=== PATIENT | female | born 1935 | race Caucasian/White ===

== ENCOUNTER 2016-12-03 13:34 | Outpatient (CLI) | payer MEDICARE, BC | END 2016-12-03 13:35 | disposition home or self-care (01) | DX: R73.9 Hyperglycemia, unspecified (principal); E03.9 Hypothyroidism, unspecified; E55.9 Vitamin D deficiency, unspecified; Z79.899 Other long term (current) drug therapy ==

== ENCOUNTER 2016-12-17 21:20 | Emergency (ER) | payer MEDICARE, BC ==
--- NOTE | 2016-12-17 21:53 | ED Physician Documentation ---
History of Present Illness - Stated complaint Stated Complaint: LEGS SWELLING - Chief complaint Chief Complaint: General - History obtained from History obtained from: Patient, Family - History of Present Illness Timing: How many days ago (4-5) Pain level now: 8 Improved by: no ameliorating factors Worsened by: no exacerbating factors - Additonal information Additional information: c/o gradually worsening BLE swelling and associated pain x 5 days. recently started on lasix 10mg QD by PMD, dose increased to 20mg few days ago without effective change in leg swelling and pain. patient's chief concern tonight is the pain in her legs. 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: Hysterectomy - Present Medications Home Medications: Ambulatory Orders Medication Instructions Recorded Confirmed Allopurinol 300 mg PO DAILY 11/30/14 12/17/16 Levothyroxine [Synthroid] 137 mcg PO DAILY 11/30/14 12/17/16 Metoprolol Succinate [Toprol Xl] 200 mg PO DAILY 11/30/14 12/17/16 Omeprazole 40 mg PO DAILY 11/30/14 12/17/16 Triamterene/Hydrochlorothiazid 2 tab PO DAILY 11/30/14 12/17/16 [Triamterene-Hctz 75-50 mg Tab] Cholecalciferol (Vitamin D3) 2,000 units PO DAILY 12/17/16 12/17/16 [Vitamin D3] Furosemide [Lasix] 10 mg PO DAILY 12/17/16 12/17/16 Potassium Chloride 10 mg PO DAILY 12/17/16 12/17/16 - Allergies Allergies/Adverse Reactions: Allergies Allergy/AdvReac Type Severity Reaction Status Date / Time codeine Allergy Severe Anaphylaxis Verified 12/17/16 21:30 PD ED PE NORMAL - Vitals Vital signs reviewed: Yes - General General: Alert and oriented X 3, Well developed/nourished, Other (appears to be uncomfortable with mild-moderate pain) - Cardiac Cardiac: RRR, No murmur - Respiratory Respiratory: No respiratory distress - Abdomen Abdomen: Soft, Non tender - Derm Derm: Normal color, Warm and dry PD ED PE EXPANDED - Respiratory Respiratory: Wheezing (end-expiratory, bilateral) - Extremities Extremities: Pedal edema bilateral Results - Vitals Vitals: Oxygen O2 Source Room air Oxygen Flow Rate 2 - EKG (time done) No standard instances Rate: Rate (enter#) (78) Rhythm: NSR [place]: Normal Intervals: Normal [place] QRS: Normal Ischemia: Normal ST segments - Labs Labs: Laboratory Tests 12/17/16 12/17/16 12/17/16 22:36 22:50 22:50 WBC 9.1 RBC 4.28 Hgb 13.4 Hct 40.4 MCV 94.5 MCH 31.3 H MCHC 33.1 RDW 14.2 Plt Count 246 MPV 9.1 Neut # 5.4 Lymph # 2.8 [place] # 0.6 Eos # 0.2 Baso # 0.1 Absolute Nucleated RBC 0.00 Nucleated RBCs 0.0 Sodium 143 Potassium 3.4 L Chloride 98 L Carbon Dioxide 36 H Anion Gap 9.0 BUN 23 H Creatinine 1.2 H Estimated GFR (MDRD) 43 L Glucose 132 H Calcium 8.7 Total Bilirubin 0.5 AST 24 ALT 23 Alkaline Phosphatase 72 Troponin I < 0.04 B-Natriuretic Peptide Total Protein 6.9 Albumin 3.9 Globulin 3.0 Albumin/Globulin Ratio 1.3 Lipase 20 L 12/17/16 22:50 WBC RBC Hgb Hct MCV MCH MCHC RDW Plt Count MPV Neut # Lymph # [place] # Eos # Baso # Absolute Nucleated RBC Nucleated RBCs Sodium Potassium Chloride Carbon Dioxide Anion Gap BUN Creatinine Estimated GFR (MDRD) Glucose Calcium Total Bilirubin AST ALT Alkaline Phosphatase Troponin I B-Natriuretic Peptide 48 Total Protein Albumin Globulin Albumin/Globulin Ratio Lipase - Rads (name of study) chest xray Radiology: Prelim report reviewed, See rad report PD MEDICAL DECISION MAKING - ED course Complexity details: reviewed results, re-evaluated patient, considered differential, d/w patient, d/w family ED course: patients test results are all quite reassuring, and patient reported significant relief of pain, essentially resolution, with IV morphine. She did have several episodes of nausea and vomiting subsequent to this medication, with modest relief with intravenous Zofran followed by Phenergan. she was also given a total of 60 mg of Lasix in the ED. She was provided a take-home pack of vacating to be used should the pain reoccur. I discussed with her and her family the benefit of increasing doses of Lasix , Particularly gradual improvement of her edema, versus the risk, particularly worsening kidney function test. I advised her to stay on her currently prescribed Lasix dose until she is instructed otherwise by her primary care physician. Departure - Departure Disposition: 01 Home, Self Care Clinical Impression: Peripheral edema Condition: Good Instructions: ED Edema Legs Bilateral Follow-Up: Nicole Kuo PA-C [Primary Care Provider] - (Call in the morning to arrange for next available appointment) Discharge Date/Time: 12/18/16 03:41
[2016-12-17] MEDS ORDERED: FUROSEMIDE 40 MG/4 ML VIAL IVP STA (22:16)
[2016-12-17] MEDS ORDERED: MORPHINE 2 MG/ML SYRINGE IVP STA (22:16)
[2016-12-17] MEDS ORDERED: FUROSEMIDE 40 MG/4 ML VIAL ONE (22:26)
[2016-12-17] MEDS ORDERED: MORPHINE 2 MG/ML SYRINGE ONE (22:27)
--- NOTE | 2016-12-17 22:44 | XRAY Preliminary Report ---
Exam: XR Chest 2 View PA/LAT IMPRESSION: 1. Small lung volumes with bibasilar atelectasis. 2. Heart size probably upper normal. [facility] SITE ID: [id number]
[2016-12-17 22:45] LABS: BASOPHILS # (AUTO) 0.1 10^3/uL (0.0-0.1); BASOPHILS % (AUTO) 0.7 %; EOSINOPHILS # (AUTO) 0.2 10^3/uL (0.0-0.7); HCT - HEMATOCRIT 40.4 % (37.0-47.0); HGB - HEMOGLOBIN 13.4 g/dL (12.0-16.0); LYMPHOCYTES # (AUTO) 2.8 10^3/uL (1.5-3.5); LYMPHOCYTES % (AUTO) 30.8 %; MEAN CORPUSCULAR HEMOGLOBIN 31.3 pg (27.0-31.0); MEAN CORPUSCULAR HGB CONC 33.1 g/dL (32.0-36.0); MEAN CORPUSCULAR VOLUME 94.5 fL (81.0-99.0); MEAN PLATELET VOLUME 9.1 fL (7.9-10.8); MONOCYTES # (AUTO) 0.6 10^3/uL (0.0-1.0); MONOCYTES % (AUTO) 6.8 %; NEUTROPHILS # (AUTO) 5.4 10^3/uL (1.5-6.6); NEUTROPHILS % (AUTO) 59.7 %; RED BLOOD COUNT 4.28 10^6/uL (4.20-5.40); RED CELL DISTRIBUTION WIDTH 14.2 % (12.0-15.0); UNCORRECTED WHITE BLOOD COUNT 9.1 x10^3/uL; WHITE BLOOD COUNT 9.1 x10^3/uL (4.8-10.8)
--- NOTE | 2016-12-17 22:47 | XRAY Report ---
EXAM: CHEST RADIOGRAPHY EXAM DATE: 12/17/2016 10:30 PM. CLINICAL HISTORY: Dyspnea. COMPARISON: 12/18/2015. TECHNIQUE: 2 views. FINDINGS: Lungs/Pleura: Small lung volumes with bibasilar atelectasis. No pleural effusion seen. No pneumothora x. Mediastinum: Heart size is probably upper normal. Other: None. IMPRESSION: 1. Small lung volumes with bibasilar atelectasis. 2. Heart size probably upper normal. [facility] Referring Provider Line: [phone] SITE ID: [id number]
[2016-12-17 23:14] LABS: ALBUMIN/GLOBULIN RATIO 1.3 (1.0-2.2); BILIRUBIN,TOTAL 0.5 mg/dL (0.2-1.0); CALCIUM 8.7 mg/dL (8.5-10.3); CREATININE 1.2 mg/dL (0.4-1.0); POTASSIUM 3.4 mmol/L (3.5-5.0); TOTAL PROTEIN 6.9 g/dL (6.7-8.2)
[2016-12-17] MEDS ORDERED: ONDANSETRON 4 MG/2 ML VIAL ONE (23:18)
[2016-12-18] MEDS ORDERED: ONDANSETRON 4 MG/2 ML VIAL IVP STA ×2 (00:39)
[2016-12-18] MEDS ORDERED: ONDANSETRON 4 MG/2 ML VIAL ONE (00:40)
[2016-12-18] MEDS ORDERED: FUROSEMIDE 20 MG/2 ML VIAL IVP STA (01:13)
[2016-12-18] MEDS ORDERED: FUROSEMIDE 20 MG/2 ML VIAL IVP ONE (01:13)
[2016-12-18] MEDS ORDERED: PROMETHAZINE INJ 12.5 MG in SODIUM CHLORIDE 0.9% 50 ML IV STA (02:14)
[2016-12-18] MEDS ORDERED: HYDROcod/ACET 5/325 Prepack 6 PO STA (02:15)
[2016-12-18] MEDS ORDERED: PROMETHAZINE 25 MG/1 ML VIAL ONE (02:17)
[2016-12-18] MEDS ORDERED: HYDROcod/ACET 5/325 Prepack 6 PO ONE (02:17)
[2016-12-18 02:57] VITALS: BP 119/55
== END 2016-12-18 03:41 | disposition home or self-care (01) ==
LOC: ED 21:20
DX: R60.0 Localized edema (principal); M79.604 Pain in right leg; M79.605 Pain in left leg; R11.2 Nausea with vomiting, unspecified; J45.909 Unspecified asthma, uncomplicated; I10 Essential (primary) hypertension
CPT/HCPCS: 36415; 71020; 80053; 83690; 83880; 84484; 85025; 93005; 93010; 96374; 96375; 96376; 99284

== ENCOUNTER 2016-12-24 13:44 | Outpatient (CLI) | payer MEDICARE, BC ==
[2016-12-24 18:25] LABS: ALBUMIN/GLOBULIN RATIO 1.3 (1.0-2.2); BILIRUBIN,TOTAL 0.9 mg/dL (0.2-1.0); CALCIUM 9.3 mg/dL (8.5-10.3); CREATININE 1.2 mg/dL (0.4-1.0); POTASSIUM 3.7 mmol/L (3.5-5.0); TOTAL PROTEIN 7.6 g/dL (6.7-8.2)
== END 2016-12-24 13:45 | disposition home or self-care (01) ==
LOC: LAB.F 13:44
PROVIDERS: ATTEND Physician Assistant Medical
DX: R60.9 Edema, unspecified (principal); R06.02 Shortness of breath
CPT/HCPCS: 36415; 80053; 83880

== ENCOUNTER 2016-12-30 12:38 | Outpatient (CLI) | payer MEDICARE, BC ==
[2016-12-30] MEDS ORDERED: IOPAMIDOL-300 50 ML VIAL PO ONE (14:15)
[2016-12-30] MEDS ORDERED: IOPAMIDOL-300 100 ML VIAL IVP ONE (14:15)
--- NOTE | 2016-12-30 18:52 | CT Report ---
CT ABDOMEN AND PELVIS WITH CONTRAST: 12/30/2016 CLINICAL INDICATION: Peripheral edema, question mass obstructing the inferior vena cava or pelvic ve ins. Axial CT images of the abdomen and pelvis were obtained with 60 mL Isovue-300 intravenously as well a s oral contrast. In accordance with CT protocol optimization, one or more of the following dose reduction techniques w ere utilized for this exam: automated exposure control, adjustment of mA and/or KV based on patient size, or use of iterative reconstructive technique. No previous CT is available for comparison. Limited evaluation of the lung bases is unremarkable. ABDOMEN: The liver, spleen, pancreas, and adrenal glands are unremarkable. The gallbladder is not d ilated. The kidneys demonstrate cortical cysts. No nephrolithiasis or hydronephrosis is present. N o solid renal mass is seen. No bowel dilatation, free gas, or free fluid is present. No abdominal a denopathy is appreciated. PELVIS: The appendix is seen in the right lower quadrant, and is normal in caliber. Sigmoid diverti culosis is present, without CT evidence of diverticulitis. No pelvic adenopathy or free fluid is pre sent. Osseous structures demonstrate mild degenerative changes. IMPRESSION: NO EVIDENCE OF ADENOPATHY OR OTHER MASS OBSTRUCTING THE INFERIOR VENA CAVA OR PELVIC VEI NS. NO EVIDENT ETIOLOGY FOR PATIENT'S PERIPHERAL EDEMA. JOB #: [id number] EXT JOB #:[id number]
== END 2016-12-30 12:39 | disposition home or self-care (01) ==
LOC: DI 12:38
PROVIDERS: ATTEND Physician Assistant Medical
DX: R60.9 Edema, unspecified (principal)
CPT/HCPCS: 74177; Q9967

== ENCOUNTER 2017-02-23 13:31 | Outpatient (CLI) | payer MEDICARE, BC ==
[2017-02-23 19:51] LABS: ALBUMIN/GLOBULIN RATIO 1.3 (1.0-2.2); BILIRUBIN,TOTAL 0.8 mg/dL (0.2-1.0); CALCIUM 9.3 mg/dL (8.5-10.3); CREATININE 1.2 mg/dL (0.4-1.0); POTASSIUM 3.8 mmol/L (3.5-5.0); TOTAL PROTEIN 6.9 g/dL (6.7-8.2)
== END 2017-02-23 13:32 | disposition home or self-care (01) ==
LOC: LAB.F 13:31
PROVIDERS: ATTEND Physician Assistant Medical
DX: N18.9 Chronic kidney disease, unspecified (principal); E55.9 Vitamin D deficiency, unspecified
CPT/HCPCS: 36415; 80053; 82306

== ENCOUNTER 2017-04-20 12:44 | Outpatient (CLI) | payer MEDICARE, BC | END 2017-04-20 12:45 | disposition home or self-care (01) | LOC: DI 12:44 | PROVIDERS: ATTEND Physician Assistant | DX: I11.0 Hypertensive heart disease with heart failure (principal); I50.9 Heart failure, unspecified; R60.9 Edema, unspecified | CPT/HCPCS: 93306 ==

== ENCOUNTER 2017-10-19 13:07 | Outpatient (CLI) | payer MEDICARE, BC ==
--- NOTE | 2017-10-19 15:25 | XRAY Report ---
THREE VIEW LUMBAR SPINE: 10/09/2017 CLINICAL INDICATION: Pain, limited range of motion. FINDINGS: AP, lateral, coned down views of the lumbar spine demonstrate moderate degenerative disk and facet disease. There is no evidence of compression fracture or subluxation. The bowel gas pattern is normal. IMPRESSION: MODERATE DEGENERATIVE CHANGES. TD: 10/19/2017 15:24
--- NOTE | 2017-10-19 15:26 | XRAY Report ---
TWO VIEW THORACIC SPINE: 10/19/2017 CLINICAL INDICATION: Pain, decreased range of motion. FINDINGS: Frontal and lateral views of the thoracic spine demonstrate degenerative disk disease. There is no evidence of fracture. No paraspinal hematoma is seen. IMPRESSION: DEGENERATIVE DISK DISEASE. NO EVIDENCE OF FRACTURE. TD: 10/19/2017 15:25
== END 2017-10-19 13:08 | disposition home or self-care (01) ==
LOC: DI.S 13:07
PROVIDERS: ATTEND Physician Assistant
DX: M51.36 Other intervertebral disc degeneration, lumbar region (principal); M47.896 Other spondylosis, lumbar region; M51.34 Other intervertebral disc degeneration, thoracic region
CPT/HCPCS: 72070; 72100

== ENCOUNTER 2017-10-19 13:15 | Outpatient (CLI) | payer MEDICARE, BC ==
--- NOTE | 2017-10-20 17:48 | Mammography Report ---
DIGITAL SCREENING MAMMOGRAM: 10/19/2017 CLINICAL INDICATION: An 82-year-old nulliparous patient with family history of breast cancer for screening. COMPARISON: 07/2014, 06/2013, 06/2012, 10/2010, 09/2009. TECHNIQUE: Routine CC and MLO projections were obtained of the breasts. FINDINGS: The breasts again demonstrate heterogeneously dense fibroglandular parenchyma bilaterally. Coarse and punctate, typically benign calcifications are present. No suspicious masses, clustered microcalcifications, or regions of architectural distortion are identified. IMPRESSION: BENIGN FINDINGS. RECOMMENDATION: Routine annual screening unless otherwise clinically indicated. BIRADS category 2 benign findings. STANDARD QUALIFYING STATEMENTS 1. This examination was reviewed with the aid of Computed-Aided Detection (CAD). 2. A negative or benign imaging report should not delay biopsy if clinically suspicious findings are present. Consider surgical consultation if warranted. More than 5% of cancers are not identified by imaging. 3. Dense breasts may obscure an underlying neoplasm. cc: SAMARIA CASAREZ, TD: 10/20/2017 17:47 cc: SAMARIA CASAREZ
== END 2017-10-19 13:16 | disposition home or self-care (01) ==
LOC: DI.S 13:15
PROVIDERS: ATTEND Physician Assistant
DX: Z12.31 Encounter for screening mammogram for malignant neoplasm of breast (principal); Z80.3 Family history of malignant neoplasm of breast
CPT/HCPCS: 77067

== ENCOUNTER 2018-07-19 13:27 | Outpatient (CLI) | payer MEDICARE, BC ==
--- NOTE | 2018-07-19 15:00 | XRAY Report ---
Reason: PAIN IN RIGHT HIP Procedure Date: 07/19/2018 Accession Number: [id number] / [id number] Procedure: XR - Hips 2V BILAT CPT Code: FULL RESULT: EXAM: BILATERAL HIP RADIOGRAPHY EXAM DATE: 07/19/2018 01:52 PM. CLINICAL HISTORY: Pain in right hip. COMPARISON: None. TECHNIQUE: 2 views each. FINDINGS: Bones: Normal. No fractures or bone lesion. Right Hip: Normal. No dislocation. The hip joint space is preserved and normal for age. Left Hip: Normal. No dislocation. The hip joint space is preserved and normal for age. Soft Tissues: Normal. No soft tissue swelling. IMPRESSION: Normal bilateral hip radiography. [facility]
== END 2018-07-19 13:28 | disposition home or self-care (01) ==
LOC: DI 13:27
PROVIDERS: ATTEND Physician Assistant
DX: M25.551 Pain in right hip (principal); M25.552 Pain in left hip
CPT/HCPCS: 73521

== ENCOUNTER 2018-10-04 12:46 | Outpatient (CLI) | payer MEDICARE, BC | END 2018-10-04 12:47 | disposition home or self-care (01) | LOC: DI 12:46 | PROVIDERS: ATTEND Internal Medicine | DX: R55 Syncope and collapse (principal); I50.30 Unspecified diastolic (congestive) heart failure; I51.7 Cardiomegaly | CPT/HCPCS: 93306 ==

== ENCOUNTER 2019-01-03 11:10 | Outpatient (CLI) | payer MEDICARE, BC | END 2019-01-03 11:11 | disposition home or self-care (01) | LOC: SC 11:10 | PROVIDERS: ATTEND Internal Medicine Pulmonary Disease | DX: R06.83 Snoring (principal); R09.89 Other specified symptoms and signs involving the circulatory and respiratory systems | CPT/HCPCS: 99203; G0463; 99212 ==

== ENCOUNTER 2019-02-13 19:10 | Outpatient (CLI) | payer MEDICARE, BC | END 2019-02-13 19:11 | disposition home or self-care (01) | LOC: SC 19:10 | PROVIDERS: ATTEND Internal Medicine Pulmonary Disease | DX: G47.33 Obstructive sleep apnea (adult) (pediatric) (principal); R09.02 Hypoxemia; G47.61 Periodic limb movement disorder; E66.01 Morbid (severe) obesity due to excess calories; Z68.41 Body mass index [BMI] 40.0-44.9, adult | CPT/HCPCS: 95810 ==

== ENCOUNTER 2019-03-01 11:22 | Outpatient (CLI) | payer MEDICARE, BC ==
--- NOTE | 2019-03-03 03:27 | XRAY Report ---
Reason: PAIN IN LEFT SHOULDER Procedure Date: 03/01/2019 Accession Number: [id number] / [id number] Procedure: XRS - Shoulder 2 View LT CPT Code: FULL RESULT: EXAM: LEFT SHOULDER RADIOGRAPHY EXAM DATE: 03/01/2019 11:50 AM. CLINICAL HISTORY: PAIN IN LEFT SHOULDER. COMPARISON: None. TECHNIQUE: 2 views. FINDINGS: Bones: No fracture or bone lesion. Joints: The glenohumeral and acromioclavicular joints appear normally aligned. Soft tissues: The visualized hemithorax is unremarkable. No soft tissue swelling. IMPRESSION: No acute fracture or dislocation of left shoulder. [facility]
== END 2019-03-01 11:23 | disposition home or self-care (01) ==
LOC: DI.S 11:22
PROVIDERS: ATTEND Internal Medicine
DX: M25.512 Pain in left shoulder (principal)

== ENCOUNTER 2019-03-07 | Outpatient (CLI) | payer MEDICARE, BC | END 2019-03-07 14:16 | disposition home or self-care (01) | DX: G47.33 Obstructive sleep apnea (adult) (pediatric) (principal); G47.61 Periodic limb movement disorder | CPT/HCPCS: 99213; G0463; 99212 ==

== ENCOUNTER 2019-04-26 10:46 | Outpatient (CLI) | payer MEDICARE, BC ==
--- NOTE | 2019-04-26 14:41 | XRAY Report ---
Reason: HAND, BILATERAL M15.9 Procedure Date: 04/26/2019 Accession Number: [id number] / [id number] Procedure: XRS - Hand 3 View BILAT CPT Code: FULL RESULT: EXAMS: 1. RIGHT HAND RADIOGRAPHY 2. LEFT HAND RADIOGRAPHY EXAM DATE: 04/26/2019 11:19 AM. CLINICAL HISTORY: Chronic bilateral hand pain. COMPARISON: None. TECHNIQUE: 3 views each hand. FINDINGS: Right: Bones: Normal. No fractures or bone lesions. Joints: Advanced degenerative changes at the first carpometacarpal articulation including partial subluxation of the base of the thumb. Additional proliferative degenerative changes predominantly the distal interphalangeal joints, osteoarthrosis pattern. Soft Tissues: Normal. No soft tissue swelling. Left: Bones: Normal. No fractures or bone lesions. Joints: Osteoarthrosis is most pronounced at the second distal interphalangeal joint. Additionally, there are moderate degenerative changes at the first carpometacarpal articulation. Soft Tissues: Normal. No soft tissue swelling. 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 [facility]
--- NOTE | 2019-04-26 14:47 | XRAY Report ---
Reason: SOB, R06.02 Procedure Date: 04/26/2019 Accession Number: [id number] / [id number] Procedure: XRS - Chest 2 View X-Ray CPT Code: 85025 FULL RESULT: EXAM: CHEST RADIOGRAPHY EXAM DATE: 04/26/2019 11:19 AM. CLINICAL HISTORY: Shortness of breath. Wheezing. COMPARISON: SHOULDER 2 VIEW LT 03/01/2019 11:57 AM. TECHNIQUE: 2 views. FINDINGS: Both views are limited by underpenetrated technique. Lungs/Pleura: No focal opacities evident. No pleural effusion. No pneumothorax. Low normal volumes. Mediastinum: Heart and mediastinal contours are unremarkable. Other: None. IMPRESSION: Somewhat limited examination with no acute cardiopulmonary abnormality detected. [facility]
== END 2019-04-26 10:47 | disposition home or self-care (01) ==
LOC: DI.S 10:46
PROVIDERS: ATTEND Physician Assistant
DX: R06.02 Shortness of breath (principal); M19.042 Primary osteoarthritis, left hand; M19.041 Primary osteoarthritis, right hand; M18.0 Bilateral primary osteoarthritis of first carpometacarpal joints
CPT/HCPCS: 71046

== ENCOUNTER 2019-05-09 13:45 | Outpatient (CLI) | payer MEDICARE, BC ==
--- NOTE | 2019-05-09 15:01 | SLEEP CARE CONSULTATION ---
Information from patient questionnaire entered by Yajaira Parson. I have reviewed and concur with the information entered by Yajaira Parson. This document represents the service I personally performed and the decisions made by me, Perry Padron MD, [facility]. History of Present Illness Previous diagnosis: Severe, Obstructive Sleep Apnea-Hypopnea Syndrome AHI: 39.1 Reason for CPAP/BiPAP follow up: first compliance Equipment type: CPAP Equipment obtained from: [employer] Mask style: Full face Mask brand: Respironics Prior sleep studies: Yes Year and Where: 2019 [facility] HPI additional information: HPI: Ms. Noel returned today for follow up of nasal CPAP therapy. She was di agnosed to have severe obstructive sleep apnea-hypopnea syndrome. The patient wears with a RespirEclectorWear full face mask. She reports using the device nightly and all through the night. The compliance data show usage in 28 out of the past 30 nights, averaging 5.6 hours a night. The > 4 hour compliance rate for the past 30 days is 90%. She complained of pain on her face from the mask. She thinks that the pressure of 4 - 12 is suffocating. On the CPAP therapy she notices improvement in her sleep quality, and that she wakes up feeling fresher in the morning and more awake/alert during the day. The [place] Sleepiness Scale score 5. The average residual AHI is 5.1; and average time in large leak per day is 2 minutes. The 90th percentile pressure is 7.2 cmH2O. CPAP Compliance Data - Data Reviewed with Patient Average duration of nightly device use: 5h 36m Compliance rate %: 90.0 Current pressure setting (cmH2O): 4-12 Humidity settin Heated hose settin Subjective Patient concerns: reports: mask discomfort, dry mouth, nose, throat, other (headaches) Current pressure setting perceived as: comfortable Initial [place] Sleepiness Scale score: 5 Current [place] Sleepiness Scale score: 5 Allergies and Home Medications Drug allergies reviewed: Yes Home medication list reviewed: Yes Physical Exam Height: 5 ft 2 in Weight: 222 lb Body Mass Index: 40.6 BMI Classification: Obesity Class 3 Impression and Plan IMPRESSION: 1. Obstructive Sleep Apnea-Hypopnea Syndrome, severe, with the patient doing fairly well on nasal CPAP therapy. She has excellent compliance and significant clinical improvement. The current pressure appears slightly ineffective and not too comfortable. Overall, she is very satisfied with treatment and plans to continue with it long-term. A manual CPAP/BiPAP titration study will be scheduled to find the optimal pressure setting. In the meantime, I will raise the pressure a little. PLAN: 1. Set autoCPAP at 6 - 12 cmH2O. 2. Try to lose weight 3. Try the ResMed AirTouch F-20 full face mask 4. Schedule a manual CPAP/BiPAP titration study. 5. Return for follow up after the sleep study. I spent 100% of this 20 minute visit face to face with the patient with greater than 50% of this was spent time counseling the patient and coordination of care.
== END 2019-05-09 13:46 | disposition home or self-care (01) ==
LOC: SC 13:45
PROVIDERS: ATTEND Internal Medicine Pulmonary Disease
DX: G47.33 Obstructive sleep apnea (adult) (pediatric) (principal); E66.9 Obesity, unspecified; Z68.41 Body mass index [BMI] 40.0-44.9, adult
CPT/HCPCS: 99213; G0463; 99212

== ENCOUNTER 2021-03-25 16:31 | Outpatient (CLI) | payer MEDICARE, BC ==
[2021-03-25 19:47] LABS: BILIRUBIN,URINE NEGATIVE (NEGATIVE); GLUCOSE, URINE (UA) NEGATIVE (NEGATIVE); HGB - HEMOGLOBIN 14.8 g/dL (12.0-16.0); KETONES,URINE (UA) NEGATIVE (NEGATIVE); LEUKOCYTE ESTERASE, URINE NEGATIVE (NEGATIVE); LYMPHOCYTES # (AUTO) 2.1 10^3/uL (1.5-3.5); MEAN CORPUSCULAR VOLUME 95.8 fL (81.0-99.0); NEUTROPHILS % (AUTO) 66.6 %; NITRITE,URINE NEGATIVE (NEGATIVE); OCCULT BLOOD,URINE NEGATIVE (NEGATIVE); PH,URINE 5.5 PH (5.0-7.5); PROTEIN,URINE NEGATIVE (NEGATIVE); UROBILINOGEN,URINE 0.2 (NORMAL) E.U./dL (NORMAL)
[2021-03-25 19:49] LABS: BASOPHILS % (AUTO) 0.2 %; EOSINOPHILS # (AUTO) 0.2 10^3/uL (0.0-0.7); LYMPHOCYTES % (AUTO) 24.5 %; MEAN CORPUSCULAR HEMOGLOBIN 27.3 pg (27.0-31.0); MEAN CORPUSCULAR HGB CONC 28.5 g/dL (32.0-36.0); MEAN PLATELET VOLUME 10.7 fL (7.9-10.8); MONOCYTES # (AUTO) 0.6 10^3/uL (0.0-1.0); MONOCYTES % (AUTO) 6.5 %; NEUTROPHILS # (AUTO) 5.7 10^3/uL (1.5-6.6); PLT - PLATELET COUNT 281 10^3/uL (130-450); RED BLOOD COUNT 5.43 10^6/uL (4.20-5.40); RED CELL DISTRIBUTION WIDTH 14.6 % (12.0-15.0); WHITE BLOOD COUNT 8.6 x10^3/uL (4.8-10.8)
[2021-03-25 19:54] LABS: SLIDE REVIEW? Indicated
[2021-03-25 19:55] LABS: BACTERIA,URINE Few /HPF (None Seen); CASTS, URINE 3-5 Hyaline Casts /LPF; CLARITY,URINE CLEAR (CLEAR); MUCUS,URINE Few Strands; RBC,URINE 0-5 /HPF (0-5); SQUAMOUS EPITHELIAL CELL,UR FEW Squamous (<= Few); WBC,URINE 0-3 /HPF (0-5)
[2021-03-25 20:03] LABS: ALBUMIN 3.8 g/dL (3.2-5.5); ALBUMIN/GLOBULIN RATIO 1.1 (1.0-2.2); BILIRUBIN,TOTAL 0.8 mg/dL (0.2-1.0); CALCIUM 9.3 mg/dL (8.5-10.3); CREATININE 1.2 mg/dL (0.4-1.0); MAGNESIUM 1.3 mg/dL (1.7-2.8); POTASSIUM 4.3 mmol/L (3.5-5.0); TOTAL PROTEIN 7.3 g/dL (6.7-8.2)
[2021-03-25 20:10] LABS: ESTIMATED AVERAGE GLUCOSE 140 mg/dL (70-100); HEMOGLOBIN A1c% 6.5 % (4.27-6.07)
[2021-03-25 20:16] LABS: THYROID STIMULATING HORMONE 3.93 uIU/mL (0.34-5.60)
[2021-03-25 20:56] LABS: PLATELET ESTIMATE, MANUAL NORMAL (130-450,000) (NORMAL); PLATELET MORPHOLOGY NORMAL APPEARANCE (NORMAL); RBC MORPHOLOGY (MULTIPLE) NORMAL APPEARANCE (NORMAL)
--- NOTE | 2021-03-26 09:31 | XRAY Report ---
PROCEDURE: Chest 2 View X-Ray INDICATIONS: CHRONIC OBSTRUCTIVE LUNG DISEASE TECHNIQUE: 2 view(s) of the chest. COMPARISON: 04/05/2020 FINDINGS: Surgical changes and devices: None. Lungs: Low lung volumes. Scattered subsegmental scarring/atelectasis. No acute consolidation. Pleura: No pleural effusions or pneumothorax. Mediastinum: Mediastinal contours are normal. Heart size is normal. Bones and chest wall: Right shoulder calcific tendinitis. Diffuse spondylitic changes. IMPRESSION: Scattered subsegmental scarring/atelectasis. No acute consolidation. Reviewed by: Yuri Pena MD on 03/26/2021 9:30 AM PDT Approved by: Yuri Pena MD on 03/26/2021 9:30 AM PDT Station ID: [id number]
== END 2021-03-25 16:32 | disposition home or self-care (01) ==
LOC: DI.S 16:31
PROVIDERS: ATTEND Nurse Practitioner Family
DX: J44.9 Chronic obstructive pulmonary disease, unspecified (principal); E88.81 Metabolic syndrome and other insulin resistance; I10 Essential (primary) hypertension; R25.3 Fasciculation
CPT/HCPCS: 36415; 80053; 81001; 82607; 83036; 83735; 84443; 85025; 87086

== ENCOUNTER 2021-04-10 23:01 | Inpatient (IN) | payer MEDICARE, BC ==
--- NOTE | 2021-04-10 23:29 | ED Physician Documentation ---
PD HPI DYSPNEA - Stated complaint Stated Complaint: SOA, WEAKNESS, SLURED SPEACH - Chief complaint Chief Complaint: Resp - History obtained from History obtained from: Patient - History of Present Illness Timing - onset: How many days ago (several days to a week of increasing dyspnea, with some coughing, also wheezing. Mild sputum production. No fever.) Timing - onset during: Rest (now with just rest too today), Light activity Timing - duration: Days Timing - details: Gradual onset, Still present, Waxing and waning (improved some with inhalers.) Inciting event(s): No: Out of meds, URI Improved by: Rest, Sitting up Worsened by: Exertion, Laying flat Associated symptoms: Cough, Wheezing, Bilateral edema (she has ongoing leg edema, on diuretics. She states PMD decreased her Lasix about 2 weeks ago and added Mag/Potassium. Pt states has had increased bilateral leg edema since.). No: Fever, Chest pain / discomfort Similar symptoms before: Diagnosis (asthma/COPD and question of some CHF as on d iuretics/HTN meds. Prior admission 2019 with dx of CHF and asthma, but ECHO then showed EF >70% (hyperdynamic).) Recently seen: Clinic (2 weeks ago, with decreased diuretic and added K/Mag supplements.) Review of Systems Constitutional: denies: Fever, Chills Nose: denies: Rhinorrhea / runny nose, Congestion Throat: denies: Sore throat Cardiac: reports: Pedal edema. denies: Chest pain / pressure, Calf pain Respiratory: reports: Dyspnea, Cough (productive of some mild sputum the past several days.), Wheezing GI: denies: Abdominal Pain, Nausea, Vomiting, Diarrhea, Bloody / black stool : denies: Dysuria Musculoskeletal: reports: Extremity swelling Neurologic: reports: Generalized weakness, Altered mental status (somewhat confu sed today). 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 RATING CHECKER: None : Kidney stones HEENT: None Psych: None Musculoskeletal: Gout Derm: None - Past Surgical History General: Colonoscopy, EGD /CREDIT RATING CHECKER: Hysterectomy - Present Medications Home Medications: Ambulatory Orders Medication Instructions Recorded Confirmed Levothyroxine [Synthroid] 137 mcg PO DAILY 11/30/14 12/17/16 Metoprolol Succinate [Toprol Xl] 200 mg PO DAILY 11/30/14 12/17/16 Omeprazole 40 mg PO DAILY 11/30/14 12/17/16 Triamterene/Hydrochlorothiazid 2 tab PO DAILY 11/30/14 12/17/16 [Triamterene-Hctz 75-50 mg Tab] allopurinoL [Allopurinol] 300 mg PO DAILY 11/30/14 12/17/16 Cholecalciferol (Vitamin D3) 2,000 units PO DAILY 12/17/16 12/17/16 [Vitamin D3] Furosemide [Lasix] 10 mg PO DAILY 12/17/16 12/17/16 Potassium Chloride 10 mg PO DAILY 12/17/16 12/17/16 - Allergies Allergies/Adverse Reactions: Allergies Allergy/AdvReac Type Severity Reaction Status Date / Time codeine Allergy Severe Anaphylaxis Verified 04/10/21 23:29 - Living Situation Living Situation: reports: With family Living Arrangement: reports: At home - Social History Does the pt smoke?: Yes Smoking Status: Former smoker Does the pt drink ETOH?: No Does the pt have substance abuse?: No - Family History Family history: reports: Non contributory PD ED PE NORMAL - Vitals Vital signs reviewed: Yes (sats 65% RA coming into ER, dusky pale color, confused, tachypneic. ) - General General: Well developed/nourished, Other (general weakness and dusky color. ) - HEENT HEENT: Pharynx benign. No: Moist mucous membranes - Neck Neck: Supple, no meningeal sign, No adenopathy, No bruit, Other (mild JVD at 45 degrees) - Cardiac Cardiac: RRR, No murmur - Respiratory Respiratory: No: Clear bilaterally (exp wheezes centrally and also fine crackles at bases both sides. ) - Abdomen Abdomen: Soft, Non tender - Back Back: No CVA TTP - Derm Derm: Warm and dry. No: Normal color - Extremities Extremities: No tenderness to palpate, Normal ROM s pain, No calf tenderness / cord, Other (1-2+ edema in both lower legs and ankles, pitting. ) - Neuro Neuro: Alert and oriented X 3, No motor deficit, Normal speech Eye Opening: Spontaneous Motor: Obeys Commands Verbal: Oriented GCS Score: 15 - Psych Psych: No: Normal mood (anxious, but improves on oxygen. Color improves too. ) Results - Vitals Vitals: Vital Signs - 24 hr 04/10/21 04/10/21 04/10/21 23:23 23:29 23:38 Temperature 36.4 C L Heart Rate 74 66 69 Respiratory 17 26 H 27 H Rate Blood Pressure 170/75 H 133/114 H O2 Saturation 65 L 96 04/10/21 04/11/21 04/11/21 23:59 00:29 00:30 Temperature Heart Rate 65 62 63 Respiratory 27 H 29 H 26 H Rate Blood Pressure 130/69 140/105 H 141/100 H O2 Saturation 96 96 96 04/11/21 04/11/21 00:33 00:58 Temperature Heart Rate 60 64 Respiratory 20 21 Rate Blood Pressure O2 Saturation 96 Oxygen O2 Source Nasal cannula Oxygen Flow Rate 5 - EKG (time done) 23:33 Rate: Rate (enter#) (69) Rhythm: NSR QRS: Poor R wave progression Ischemia: Normal ST segments, Q waves (anterior leads). No: ST elevation c/w ischemia, ST depression Compare to prior EKG: Unchanged from prior EKG - Labs Labs: Laboratory Tests 04/10/21 04/10/21 04/10/21 23:51 23:51 23:51 WBC 8.9 RBC 5.69 H Hgb 15.0 Hct 54.5 H MCV 95.8 MCH 26.4 L MCHC 27.5 L RDW 15.3 H Plt Count 293 MPV 10.1 Neut # (Auto) 6.0 Lymph # (Auto) 2.0 Nicholas # (Auto) 0.6 Eos # (Auto) 0.2 Baso # (Auto) 0.0 Absolute Nucleated RBC 0.00 Nucleated RBC % 0.0 Manual Slide Review Indicated WBC Morphology NORMAL APPEARANCE Platelet Estimate NORMAL (130-450,000) Platelet Morphology NORMAL APPEARANCE RBC Morph Micro Appear NORMAL APPEARANCE D-Dimer 243.8 Sodium 139 Potassium 5.1 H Chloride 95 L Carbon Dioxide 34 H Anion Gap 10.0 BUN 32 H Creatinine 1.1 H Estimated GFR (MDRD) 47 L Glucose 136 H Calcium 9.3 Magnesium 2.0 Total Bilirubin 0.8 AST 14 ALT 15 Alkaline Phosphatase 75 Troponin I High Sens B-Natriuretic Peptide Total Protein 7.3 Albumin 3.8 Globulin 3.5 Albumin/Globulin Ratio 1.1 Lipase 25 Nasal Adenovirus (PCR) Nasal B. parapertussis DNA (PCR) Nasal Coronavir 229E PCR Nasal Coronavir HKU1 PCR Nasal Coronavir NL63 PCR Nasal Coronavir OC43 PCR Nasal Enterovir/Rhinovir PCR Nasal Influenza B PCR Nasal Influenza A PCR Nasal Parainfluen 1 PCR Nasal Parainfluen 2 PCR Nasal Parainfluen 3 PCR Nasal Parainfluen 4 PCR Nasal RSV (PCR) Nasal B.pertussis DNA PCR Nasal C.pneumoniae (PCR) Roger Human Metapneumo PCR Nasal M.pneumoniae (PCR) Nasal SARS-CoV-2 (PCR) 04/10/21 04/10/21 04/11/21 23:51 23:51 00:08 WBC RBC Hgb Hct MCV MCH MCHC RDW Plt Count MPV Neut # (Auto) Lymph # (Auto) Nicholas # (Auto) Eos # (Auto) Baso # (Auto) Absolute Nucleated RBC Nucleated RBC % Manual Slide Review WBC Morphology Platelet Estimate Platelet Morphology RBC Morph Micro Appear D-Dimer Sodium Potassium Chloride Carbon Dioxide Anion Gap BUN Creatinine Estimated GFR (MDRD) Glucose Calcium Magnesium Total Bilirubin AST ALT Alkaline Phosphatase Troponin I High Sens 12.1 B-Natriuretic Peptide 414 H Total Protein Albumin Globulin Albumin/Globulin Ratio Lipase Nasal Adenovirus (PCR) NOT DETECTED Nasal B. parapertussis DNA (PCR) NOT DETECTED Nasal Coronavir 229E PCR NOT DETECTED Nasal Coronavir HKU1 PCR NOT DETECTED Nasal Coronavir NL63 PCR NOT DETECTED Nasal Coronavir OC43 PCR NOT DETECTED Nasal Enterovir/Rhinovir PCR NOT DETECTED Nasal Influenza B PCR NOT DETECTED Nasal Influenza A PCR NOT DETECTED Nasal Parainfluen 1 PCR NOT DETECTED Nasal Parainfluen 2 PCR NOT DETECTED Nasal Parainfluen 3 PCR NOT DETECTED Nasal Parainfluen 4 PCR NOT DETECTED Nasal RSV (PCR) NOT DETECTED Nasal B.pertussis DNA PCR NOT DETECTED Nasal C.pneumoniae (PCR) NOT DETECTED Roger Human Metapneumo PCR NOT DETECTED Nasal M.pneumoniae (PCR) NOT DETECTED Nasal SARS-CoV-2 (PCR) NOT DETECTED - Rads (name of study) chest Radiology: Prelim report reviewed (bibasilar atelectasis, no infiltrates. small right effusion.), See rad report PD MEDICAL DECISION MAKING - ED course Complexity details: re-evaluated patient (Ruby is a rusted and comfortable with oxygenation 94 to 95% on supplemental oxygen. She has not had too much urine output as of yet. Lung sounds are less wheezy considerably. She does lower sats off oxygen still though; kept on NC 3-4 lpm.), considered differential (She presents in respiratory distress with work of breathing, wheezing, hypoxia and cyanosis. This does improve with oxygen and nebulizers. She does have peripheral edema and crackles in the bases so given Lasix as well.), d/w patient - Critical Care Time(min): 35 Time Includes: Direct patient care, Reassess patient, Coordinate care, Medical consult Data interpretation: Labs, Pulse ox, CXR Procedures excluded from critical care time: EKG Departure - Departure Disposition: ED Place in Observation Clinical Impression: Peripheral edema, Hypoxia Exacerbation of asthma Qualifiers: Asthma severity: moderate Asthma persistence: unspecified Qualified Code(s): J45.901 - Unspecified asthma with (acute) exacerbation Dyspnea Qualifiers: Dyspnea type: shortness of breath Qualified Code(s): R06.02 - Shortness of breath; R06.00 - Dyspnea, unspecified; R06.01 - Orthopnea Congestive heart failure Qualifiers: Heart failure type: unspecified Heart failure chronicity: unspecified Qualified Code(s): I50.9 - Heart failure, unspecified Condition: Stable Record reviewed to determine appropriate education?: Yes
[2021-04-10] MEDS ORDERED: IPRATROPIUM/ALBUTEROL 3 ML NEB INH STA (23:30)
[2021-04-10 23:58] LABS: BASOPHILS % (AUTO) 0.5 %; EOSINOPHILS # (AUTO) 0.2 10^3/uL (0.0-0.7); HCT - HEMATOCRIT 54.5 % (37.0-47.0); LYMPHOCYTES % (AUTO) 22.4 %; MEAN CORPUSCULAR HEMOGLOBIN 26.4 pg (27.0-31.0); MEAN CORPUSCULAR HGB CONC 27.5 g/dL (32.0-36.0); MEAN CORPUSCULAR VOLUME 95.8 fL (81.0-99.0); MEAN PLATELET VOLUME 10.1 fL (7.9-10.8); MONOCYTES # (AUTO) 0.6 10^3/uL (0.0-1.0); MONOCYTES % (AUTO) 6.6 %; NEUTROPHILS % (AUTO) 68.2 %; PLT - PLATELET COUNT 293 10^3/uL (130-450); RED BLOOD COUNT 5.69 10^6/uL (4.20-5.40); RED CELL DISTRIBUTION WIDTH 15.3 % (12.0-15.0); WHITE BLOOD COUNT 8.9 x10^3/uL (4.8-10.8)
[2021-04-11 00:08] LABS: ALBUMIN 3.8 g/dL (3.2-5.5); ALBUMIN/GLOBULIN RATIO 1.1 (1.0-2.2); BILIRUBIN,TOTAL 0.8 mg/dL (0.2-1.0); CALCIUM 9.3 mg/dL (8.5-10.3); CREATININE 1.1 mg/dL (0.4-1.0); POTASSIUM 5.1 mmol/L (3.5-5.0); TOTAL PROTEIN 7.3 g/dL (6.7-8.2)
[2021-04-11] MEDS ORDERED: DEXAMETHASONE 10 MG/ML VIAL IVP STA (00:15)
[2021-04-11] MEDS ORDERED: ALBUTEROL NEB 2.5 MG/3 ML INH STA (00:15)
[2021-04-11 00:24] LABS: PLATELET ESTIMATE, MANUAL NORMAL (130-450,000) (NORMAL); PLATELET MORPHOLOGY NORMAL APPEARANCE (NORMAL); RBC MORPHOLOGY (MULTIPLE) NORMAL APPEARANCE (NORMAL); SLIDE REVIEW? Indicated; WBC MORPHOLOGY (MULTIPLE) NORMAL APPEARANCE (NORMAL)
[2021-04-11 01:03] LABS: B. PARAPERTUSSIS- RESP PCR PAN NOT DETECTED; B. PERTUSSIS- RESP PCR PANEL NOT DETECTED; C. PNEUMONIAE- RESP PCR PANEL NOT DETECTED; CORONAVIRUS 229E-RESP PCR NOT DETECTED; CORONAVIRUS HKU1-RESP PCR NOT DETECTED; CORONAVIRUS NL63-RESP PCR NOT DETECTED; CORONAVIRUS OC43-RESP PCR NOT DETECTED; HUMAN METAPNEUMOVIRUS NOT DETECTED; INFLUENZA A- RESP PCR PANEL NOT DETECTED; INFLUENZA B - RESP PCR PANEL NOT DETECTED; M. PNEUMONIAE- RESP PCR PANEL NOT DETECTED; PARAINFLUENZA VIRUS 1 NOT DETECTED; PARAINFLUENZA VIRUS 2 NOT DETECTED; PARAINFLUENZA VIRUS 3 NOT DETECTED; PARAINFLUENZA VIRUS 4 NOT DETECTED; RHINOVIRUS/ENTEROVIRUS NOT DETECTED; RSV- RESP PCR PANEL NOT DETECTED; SARS-CoV-2 -RESP PCR PANEL NOT DETECTED
[2021-04-11] MEDS ORDERED: FUROSEMIDE 40 MG/4 ML VIAL IVP STA (01:09)
--- NOTE | 2021-04-11 01:26 | HISTORY & PHYSICAL EXAMINATION ---
Chief Complaint - Chief Complaint Chief Complaint: short of breath History of Present Illness - Admitted From Admitted From:: home - History Obtained From Records Reviewed: [facility] History obtained from: Dr. Obrien Exam Limitations: none - History of Present Illness HPI Comment/Other: 86-year-old female who came to the emergency room because she has been having more more shortness of breath for the last 2 weeks. She has a history of asthma and has been using her inhaler more often but is not making any difference. She has increasing cough, increasing chest congestion, no fever or chills. She does not use oxygen at home. Her previous echocardiogram in 2019 shows left ventricular hypertrophy, no valvular heart disease, no diastolic heart failure and ejection fraction of 70%. Accompanying the shortness of breath has been increasing leg edema. The shortness of breath became so severe over the last 2 to 3 days that she came to the emergency room. She has a history of asthma all of her life. In 2007 and in 2008 she began having increasing fatigue, and was only able to walk half a flight of stairs before she had to stop and catch her breath. She underwent a stress test in 2008 which showed [address] segment depression in the inferior leads. This was after already having a stress test in that was without those ST changes. She was sent to the [facility] and was evaluated by Blue Nunn MD. A left heart cath was performed in January 2009 and she had normal coronary angiography. Normal left ventricular chamber size and mild concentric left ventricular hypertrophy with an overall normal ventricular systolic function and ejection fraction of 70%. Mildly elevated left heart pressures. Spirometry done at that same time had an FVC of 1.69 which was 65% of predicted. FEV1 of 1.48 which was 76 predicted. Her FEV1/ FVC ratio was 116%. She was felt to have a low vital capacity due to restrictive lung volumes most likely due to her severe obesity.Seen by Dr. Kaz Saavedra in November 2009 and repeat spirometry was unremarkable. No one has ever been able to really describe to her why she has been so short of breath. Asthma is not severe, and her heart is "normal". With her initial evaluation the vital signs were put in incorrectly. They initially stated 96% on room air. But they were correctly put in a few moments later and oxygen saturation was 65% on room air. She was tachypneic at 26. Hypertensive at 133/114. Pale, dusky skin color. The emergency room provider focused on lung source with asthma and gave her nebulizers. Decadron. An hour later she had improved but not by much and he was hearing crackles in addition to the wheezing so we gave her some Lasix. Not much urine output yet. Chest x- ray is read as without infiltrate but with increased vascularity. BUN and creatinine are stable for her at 32 and 1.1. Potassium is 5.1. White cell count is normal at 8.9. Hemoglobin 15. Dr. Obrien is asking for placement in observation to control COPD and evaluate for possible new congestive heart failure. As the patient was being wheeled in her gurney down the hallway to her room, the ER nurse that was transporting her noted that the patient had sudden lack of responsiveness. She was back to being dusky, cyanotic, pupils fixed but not dilated, and she was not moving her chest wall to breath. Immediate blood pressure showed her to have a blood pressure in the 150s over 70s, heart rate in the 70s, but not breathing. Bag mask was applied immediately. Rapid response called. Blood pressure and pulse are maintained at all times. No CPR needed. Emergency room physician came to intubate patient emergently. Her initial PCO2 is 126 with a pH of 7.14. PO2 is 111. CXR shows ET tube in place. History - Past Medical History Cardiovascular: reports: Hypertension, Other (chronic leg edema, multiple ECHO are nml LV EF but w/ LVH. 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 : reports: Incontinence, Renal insuffiency (CKD III), Kidney stones HEENT: reports: None Psych: reports: None Musculoskeletal: reports: Osteopenia, Gout, Chronic back pain, Other (B/L trochanteric bursitis) Derm: reports: Herpes zoster, Other (seborrheic dermatitis) MRSA Hx?: No - Past Surgical History General: reports: Colonoscopy (2014), EGD /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 Possibly also had a stroke. Dad had allergic rhinitis, stroke, colon cancer. Sister has had breast cancer. Daughter has obstructive sleep apnea Living arrangement: At home Living Situation: Alone Social History Notes: Half a pack per day smoker for 54 years and quit 30 years ago. No history of alcohol abuse. Lives in her own home in [place]. . Retired from working at [employer] - Substance History Use: Uses substance without health or social issues: NONE Abuse: Recurrent use of substance despite neg consequences: NONE Dependence: Experiences withdrawal or developed tolerances: NONE - POLST Patient has POLST: No POLST Status: Full Code Meds/Allgy - Home Medications Home Medications: Ambulatory Orders Medication Instructions Recorded Confirmed Levothyroxine [Synthroid] 137 mcg PO DAILY 11/30/14 12/17/16 Metoprolol Succinate [Toprol Xl] 200 mg PO DAILY 11/30/14 12/17/16 Omeprazole 40 mg PO DAILY 11/30/14 12/17/16 Triamterene/Hydrochlorothiazid 2 tab PO DAILY 11/30/14 12/17/16 [Triamterene-Hctz 75-50 mg Tab] allopurinoL [Allopurinol] 300 mg PO DAILY 11/30/14 12/17/16 Cholecalciferol (Vitamin D3) 2,000 units PO DAILY 12/17/16 12/17/16 [Vitamin D3] Furosemide [Lasix] 10 mg PO DAILY 12/17/16 12/17/16 Potassium Chloride 10 mg PO DAILY 12/17/16 12/17/16 - Allergies Allergies/Adverse Reactions: Allergies Allergy/AdvReac Type Severity Reaction Status Date / Time codeine Allergy Severe Anaphylaxis Verified 04/10/21 23:29 Review of Systems - Ears, Nose & Throat Ears, Nose & Throat: reports: Nasal obstruction, Nasal congestion, Postnasal drainage - Respiratory Respiratory: reports: Wheezing, Snoring, Apnea. denies: Cough, Sputum production - All Other Systems All Other Systems: reports: Other (This was the initial review of systems that I was performing on the patient in the few moments I had before I left her. She then went to the [facility] room and I have been unable to speak to her since she is now intubated on propofol.) Prior Level of Functionality: Unknown at this time Exam - Vital Signs Reviewed Vital Signs: Yes Vital Signs: Vital Signs x48h Temp Pulse Resp BP Pulse Ox 04/11/21 01:21 64 20 137/58 H 95 04/11/21 00:58 64 21 96 04/11/21 00:33 60 20 04/11/21 00:30 63 26 H 141/100 H 96 04/11/21 00:29 62 29 H 140/105 H 96 04/10/21 23:59 65 27 H 130/69 96 04/10/21 23:38 69 27 H 04/10/21 23:29 66 26 H 133/114 H 96 04/10/21 23:23 36.4 C L 74 17 170/75 H 65 L - Physical Exam General Appearance: positive: Other (Patient was initially completely unresponsive to verbal stimuli or sternal rub, not breathing, eyes glazed, pupils fixed. She is now intubated with an endotracheal tube and I am starting propofol. 5'3" 97.5 kg. Centripetal obesity severe.) ENT: positive: No signs of dehydration Neck: positive: No JVD. negative: Stiff neck Respiratory: positive: Other (There were no breath sounds before intubation. After intubation she has upper airway tubular breath sounds. Scant wheezing. Bilateral.Blood gas pH 7.148, PCO2 126, PO2 111. Bicarb 42. SIMV 20, tidal volume 400, PEEP of 5, pressure support of 10.) Cardiovascular: positive: Regular rate & rhythm. negative: Gallop/S4, Friction rub Abdomen: positive: Nml bowel sounds, Other (Slightly distended abdomen after the use of bag mask. No grimacing of pain with palpation, no withdrawal to pain.He usually obese abdominal pannus) Skin: positive: Warm, Diaphoresis, Other (Initially cyanotic forearms, hands, and lips, now is pinking up) Extremities: positive: Pedal edema (Large legs, tense 2+ edema with woody muscles. Very faint early pink beginnings of venous stasis in the anterior shins. But no skin breakdown. No erysipelas. No cellulitis.) Neurologic/Psychiatric: positive: Other (Patient was oriented and alert in the ED although with respiratory distress. Now intubated and unresponsive due to my medications.) Conclusion/Plan - Problem List (1) Acute on chronic respiratory failure with hypoxia and hypercapnia Conclusion/Plan: She is described as having some form of asthma in the past. Spirometry is not confirm this. She is on Lasix in the outpatient setting but no bronchodilators on the medication list.Now intubated due to sudden loss of consciousness. Prior to being transferred in her guerney from ER to [facility], she was described as having an abrupt episode of emesis in the minutes before transfer. The nurse who was at the bedside in the ER did not feel the patient aspirated. Before we used etomidate for intubation, we did suction quite a bit of liquid from the back of her throat and mouth. Plan: Continue intubation overnight to normalize her CO2 and O2. Adjust vent settings to assist control, reduce rate to 16, repeat blood gas in the morning. Sedation will be with propofol. Check checks x-ray for placement Monitor for aspiration pneumonitis Proton pump inhibitor Oral care Armstrong catheter 45 minutes of direct patient care (2) Shortness of breath Conclusion/Plan: In looking at her medical records through [facility], she has a long history of "asthma". But two spirometry evaluations were normal for this woman other than mild restrictive defect due to obesity and lack of chest wall movement. Coronary angiogram showed normal coronary arteries, mild left ventricular hypertrophy, no pulmonary hypertension. She has had subsequent echocardiograms with the most recent one being in 2019. She is short, stocky, severely o verweight. My suspicion is that she may have obesity hypoventilation syndrome. She still may have asthma but it has not been objectively proven through evaluations in the past. She is described as having allergic rhinitis with runny nose, sneezing, postnasal drip, cough. Plan: Pulmonology evaluation when she gets out of this hospital. If definitive diagnosis needs to be made so that she can get appropriate outpatient treatment. (3) Chronic kidney disease, stage III (moderate) Conclusion/Plan: Appears to be stable. Plan: Avoid nephrotoxic agents Monitor BUN/creatinine daily Qualifiers: Chronic kidney disease stage 3 subtype: stage 3a (GFR 45-59) Qualified Code(s): N18.31 - Chronic kidney disease, stage 3a (4) Glucose intolerance (impaired glucose tolerance) Conclusion/Plan: No formal diagnosis of diabetes in this female. Ever we will be using steroids to control "asthma" that she has in the past. Plan: Check A1c Sliding scale insulin (5) Hypertension Conclusion/Plan: Considering she is on metoprolol. 200 mg daily. I hope to avoid rebound tachycardia. Will place NG and give medicine through NG. If not successful, will need to transfer to IV medication Qualifiers: Hypertension type: primary hypertension Qualified Code(s): I10 - Essential (primary) hypertension - Lab Results Lab results reviewed: Yes Fish Bones: 04/10/21 23:51 04/10/21 23:51 - Diagnostic Imaging Results Diagnostic Imaging Results: positive: Prelim report reviewed Diagnostic Imaging Results Comments: Small right pleural effusion, no consolidations, low lung volumes, bibasilar atelectasis on her first chest x-ray. - EKG Results EKG Interpreted Independently: No Core Measures - Anticipated LOS I expect patient to be DC'd or transferred within 96 hours.: Yes - DVT/VTE - Prophylaxis VTE/DVT Device ordered at admit?: Yes
[2021-04-11] MEDS ORDERED: ONDANSETRON ODT 4 MG TABLET TL PRN (01:28)
[2021-04-11] MEDS ORDERED: oxyCODONE 5 MG TABLET PO PRN (01:28)
[2021-04-11] MEDS ORDERED: ACETAMINOPHEN 325 MG TABLET PO PRN (01:28)
[2021-04-11] MEDS ORDERED: ONDANSETRON 4 MG/2 ML VIAL IVP PRN (01:28)
[2021-04-11] MEDS ORDERED: IPRATROPIUM/ALBUTEROL 3 ML NEB INH PRN (01:30)
[2021-04-11] MEDS ORDERED: ALBUTEROL NEB 2.5 MG/3 ML INH PRN (01:31)
[2021-04-11] MEDS ORDERED: ONDANSETRON 4 MG/2 ML VIAL IVP STA (01:32)
[2021-04-11] MEDS ORDERED: ETOMIDATE 40 MG/20 ML VIAL IVP ONE (02:16)
[2021-04-11] MEDS ORDERED: ROCURONIUM 50 MG/5 ML VIAL ONE (02:17)
[2021-04-11] MEDS ORDERED: PROPOFOL 200 MG/20 ML VIAL IVP ONE (02:17)
[2021-04-11 02:32] LABS: ABG HCO3 42.7 mmol/L (22.0-26.0); ABG PO2 112 mmHg (80-100)
[2021-04-11 02:33] LABS: ABG BASE EXCESS 7.9 mmol/L (-2.0-3.0); ABG OXYGEN SATURATION 97 % (94-98); ALLEN TEST POSITIVE
[2021-04-11 02:34] LABS: ABG PH 7.15 (7.35-7.45)
[2021-04-11 02:35] LABS: ABG PCO2 126 mmHg (34-45); ABG TCO2 46.6 MMOL/L (21.0-29.0)
[2021-04-11] MEDS ORDERED: PROPOFOL 500 MG/50 ML 500 MG/50 ML VIAL ONE (02:35)
[2021-04-11] MEDS ORDERED: PROPOFOL 1000 MG/100 ML 1,000 MG/100 ML BOTTLE IV SCH (03:00)
[2021-04-11] MEDS ORDERED: PROPOFOL 500 MG/50 ML 500 MG/50 ML VIAL IVP SCH (04:00)
[2021-04-11] MEDS ORDERED: PROPOFOL 500 MG/50 ML 500 MG/50 ML VIAL IVP ONE (05:00)
[2021-04-11] MEDS: PANTOPRAZOLE 40 MG VIAL IVP SCH (06:11)
[2021-04-11] MEDS: methylPREDNISolone SUCCINATE 40 MG/ML VIAL IVP SCH ×3 (06:11→21:16)
[2021-04-11] MEDS: SODIUM CHLORIDE FLUSH 0.9% 10 ML SYRINGE IVP SCH ×2 (06:11→16:45)
[2021-04-11] MEDS: INSULIN REGULAR HUMAN 300 UNIT/3 ML VIAL SUBQ SCH ×4 (06:17→23:45)
[2021-04-11] MEDS: LEVOTHYROXINE 25 MCG TABLET PO SCH (07:01)
[2021-04-11] MEDS: LEVOTHYROXINE 112 MCG TABLET PO SCH (07:01)
[2021-04-11] MEDS: PROPOFOL 500 MG/50 ML 500 MG/50 ML VIAL IV SCH ×5 (07:27→20:23)
--- NOTE | 2021-04-11 07:52 | XRAY Report ---
PROCEDURE: Chest 1 View X-Ray INDICATIONS: Chest Pain TECHNIQUE: One view of the chest was acquired. COMPARISON: 03/25/2021. FINDINGS: Surgical changes and devices: None. Lungs and pleura: Small right pleural fluid collection. Prominence of the interstitium and mild cepha lization bony vasculature suspicious for CHF. Mediastinum: Mediastinal contours appear normal. Heart size is normal. Bones and chest wall: No suspicious bony lesions. Overlying soft tissues appear unremarkable. IMPRESSION: 1. Small right-sided pleural fluid collection. 2. Probable CHF. Reviewed by: Yolette Cruz MD, PhD on 04/11/2021 7:51 AM PDT Approved by: Yolette Cruz MD, PhD on 04/11/2021 7:51 AM PDT Station ID: [id number]
[2021-04-11] MEDS ORDERED: PROPOFOL 500 MG/50 ML 500 MG/50 ML VIAL IV SCH (08:00)
--- NOTE | 2021-04-11 08:00 | XRAY Report ---
PROCEDURE: Chest 1 View X-Ray INDICATIONS: resp arrest, intubated TECHNIQUE: One view of the chest was acquired. COMPARISON: FINDINGS: Surgical changes and devices: ET tube tip projects 3.9 cm. Of the joyce.. Lungs and pleura: Left lung incompletely visualized. No pleural effusions or pneumothorax. Central p ulmonary vascular congestion and interstitial prominence compatible CHF Mediastinum: Mediastinal contours appear normal. Heart is enlarged Bones and chest wall: No suspicious bony lesions. Overlying soft tissues appear unremarkable. IMPRESSION: 1. CHF. 2. ET tube 3.9 cm superior to the joyce.. Reviewed by: Yolette Cruz MD, PhD on 04/11/2021 7:59 AM PDT Approved by: Yolette Cruz MD, PhD on 04/11/2021 7:59 AM PDT Station ID: [id number]
[2021-04-11] MEDS: CHLORHEXIDINE GLUCONATE 15 ML UDC PO SCH ×2 (08:45→20:54)
[2021-04-11] MEDS ORDERED: METOPROLOL SUCCINATE 50 MG TABLET PO SCH (09:00)
[2021-04-11 09:27] LABS: CALCIUM 9.4 mg/dL (8.5-10.3); CREATININE 1.2 mg/dL (0.4-1.0); POTASSIUM 4.2 mmol/L (3.5-5.0)
[2021-04-11] MEDS ORDERED: LEVOTHYROXINE 100 MCG VIAL IVP SCH (11:00)
[2021-04-11] MEDS: METOPROLOL 5 MG/5 ML VIAL IVP SCH ×3 (12:04→23:03)
[2021-04-11] MEDS ORDERED: MIDAZOLAM DRIP 50 MG/100 ML BAG IV SCH (20:00)
[2021-04-11] MEDS ORDERED: SODIUM CHLORIDE 0.9% 100ML 100 ML IV ONE (20:13)
[2021-04-11] MEDS: MIDAZOLAM DRIP 50 MG/100 ML BAG IV SCH (20:57)
[2021-04-11] MEDS: SODIUM CHLORIDE FLUSH 0.9% 10 ML SYRINGE IVP PRN (21:16)
[2021-04-11] MEDS ORDERED: SODIUM CHLORIDE 0.9% 500 ML IV PRN (22:59)
[2021-04-12] MEDS ORDERED: MORPHINE 2 MG/ML CARPUJECT IVP PRN (00:15)
[2021-04-12] MEDS ORDERED: SODIUM CHLORIDE 0.9% 1,000 ML IV ONE (00:58)
[2021-04-12] MEDS: LACTATED RINGERS 1,000 ML IV SCH ×2 (01:02→13:40)
[2021-04-12] MEDS: SODIUM CHLORIDE FLUSH 0.9% 10 ML SYRINGE IVP SCH ×4 (01:04→20:19)
[2021-04-12] MEDS: METOPROLOL 5 MG/5 ML VIAL IVP SCH ×4 (04:50→23:26)
[2021-04-12 05:27] LABS: ABG BASE EXCESS 11.4 mmol/L (-2.0-3.0); ABG HCO3 33.6 mmol/L (22.0-26.0); ABG MODE OF VENTILATION ASSIST/CONTROL; ABG OXYGEN SATURATION 95 % (94-98); ABG PCO2 36 mmHg (34-45); ABG PH 7.59 (7.35-7.45); ABG PO2 67 mmHg (80-100); ABG TCO2 34.7 MMOL/L (21.0-29.0); ALLEN TEST POSITIVE
[2021-04-12 05:28] LABS: ABG RESPIRATORY RATE 14 b/min
[2021-04-12] MEDS: INSULIN REGULAR HUMAN 300 UNIT/3 ML VIAL SUBQ SCH ×3 (05:43→17:37)
[2021-04-12] MEDS: MIDAZOLAM DRIP 50 MG/100 ML BAG IV SCH ×2 (05:56→20:42)
[2021-04-12] MEDS ORDERED: SODIUM CHLORIDE 0.9% MINIBAG 100 ML IV ONE (05:56)
[2021-04-12] MEDS: methylPREDNISolone SUCCINATE 40 MG/ML VIAL IVP SCH ×3 (06:03→21:24)
[2021-04-12] MEDS: SODIUM CHLORIDE FLUSH 0.9% 10 ML SYRINGE IVP PRN ×3 (06:04→21:24)
[2021-04-12] MEDS: LEVOTHYROXINE 25 MCG TABLET PO SCH (06:59)
[2021-04-12] MEDS: LEVOTHYROXINE 112 MCG TABLET PO SCH (06:59)
[2021-04-12] MEDS: PANTOPRAZOLE 40 MG VIAL IVP SCH (06:59)
[2021-04-12 07:28] LABS: HCT - HEMATOCRIT 48.8 % (37.0-47.0); HGB - HEMOGLOBIN 14.8 g/dL (12.0-16.0); LYMPHOCYTES % (AUTO) 11.1 %; MEAN CORPUSCULAR HEMOGLOBIN 26.5 pg (27.0-31.0); MEAN CORPUSCULAR HGB CONC 30.3 g/dL (32.0-36.0); MEAN CORPUSCULAR VOLUME 87.3 fL (81.0-99.0); MEAN PLATELET VOLUME 10.5 fL (7.9-10.8); MONOCYTES # (AUTO) 0.5 10^3/uL (0.0-1.0); MONOCYTES % (AUTO) 4.9 %; NEUTROPHILS # (AUTO) 7.9 10^3/uL (1.5-6.6); NEUTROPHILS % (AUTO) 83.7 %; PLT - PLATELET COUNT 267 10^3/uL (130-450); RED BLOOD COUNT 5.59 10^6/uL (4.20-5.40); RED CELL DISTRIBUTION WIDTH 16.6 % (12.0-15.0); WHITE BLOOD COUNT 9.4 x10^3/uL (4.8-10.8)
[2021-04-12 07:37] LABS: CREATININE 1.2 mg/dL (0.4-1.0); POTASSIUM 3.5 mmol/L (3.5-5.0)
[2021-04-12 07:40] LABS: MAGNESIUM 1.8 mg/dL (1.7-2.8); PHOSPHORUS 3.2 mg/dL (2.5-4.6)
[2021-04-12] MEDS: CHLORHEXIDINE GLUCONATE 15 ML UDC PO SCH ×2 (09:40→20:19)
--- NOTE | 2021-04-12 14:11 | XRAY Report ---
PROCEDURE: Chest for Line Placement INDICATIONS: oral gastric tube placement TECHNIQUE: One view of the chest was acquired. COMPARISON: Chest x-ray 01/08/2021 FINDINGS: Surgical changes and devices: Endotracheal tube is at the joyce. Nasogastric tube is present with di stal tip projecting below the left hemidiaphragm. Lungs and pleura: Bibasilar pulmonary opacities remain present. Mediastinum: Mediastinal contours appear normal. Heart size is normal. Bones and chest wall: No suspicious bony lesions. Overlying soft tissues appear unremarkable. IMPRESSION: Support lines as above. Reviewed by: Dinorah Watson MD on 04/12/2021 2:09 PM PDT Approved by: Dinorah Watson MD on 04/12/2021 2:09 PM PDT Station ID: [id number]
--- NOTE | 2021-04-12 15:08 | PROVIDER PROGRESS NOTE ---
Assessment/Plan - Problem List (1) Respiratory arrest Assessment/Plan: She was intubated and yesterday was on vent and Propofol sedation, changed to Versed sedation last night (2) Acute on chronic respiratory failure with hypoxia and hypercapnia Assessment/Plan: She is on 30% FIO2 and saturating well Her Versed drip has been weaned to off to allow her to awaken smoothly. She was then changed from AC to CPAP for 1 hour and did have apneic spells. She was then put on SIMV, to have a backup rate. Will not extubate today since she is still hypoventilating and allow her to rest overnight on the Versed drip and retry weaning and extubating tomorrow (3) Exacerbation of asthma Qualifiers: Asthma severity: moderate Asthma persistence: unspecified Qualified Code(s): J45.901 - Unspecified asthma with (acute) exacerbation Assessment/Plan: This is presumably the cause of her respiratory distress. Per medical records through [employer] she has a long history of "asthma". But two spirometry evaluations were normal for this woman other than mild restrictive defect. She may have obesity hypoventilation syndrome. She still may have asthma but it has not been objectively proven through evaluations in the past. Continue vent, periph fluids, empiric treatment like for a COPDer She would need further Pulmonology evaluation and appropriate outpatient treatment. (4) Chronic kidney disease, stage III (moderate) Conclusion/Plan: Stable. Avoid nephrotoxic agents Monitor BUN/creatinine daily Qualifiers: Chronic kidney disease stage 3 subtype: stage 3a (GFR 45-59) Qualified Code(s): N18.31 - Chronic kidney disease, stage 3a . (5) Glucose intolerance (impaired glucose tolerance) Conclusion/Plan: Sliding scale insulin coverage ordered while not eating, on ventilator (6) Hypertension Conclusion/Plan: Continue B-jeffy to avoid rebound tachycardia. Planning NG and give medicine through NG vs IV form of medications - Current Meds Current Meds: Current Medications Generic Name Dose Route Start Last Admin Trade Name Freq PRN Reason Stop Dose Admin Chlorhexidine Gluconate 15 ml 04/11/21 09:00 04/12/21 09:40 Chlorhexidine Gluconate 15 Ml Udc PO 15 ml BID ALICIA Administration Propofol 500 mg in 50 mls @ 2.926 mls/hr 04/11/21 08:00 04/11/21 21:20 Diprivan IV Infused .[id number] ALICIA Titration Protocol 5 MCG/KG/MIN Midazolam HCl 50 mg in 100 mls @ 7.802 mls/hr 04/11/21 21:00 04/12/21 10:30 Versed Drip IV 0 mg/kg/hr .[id number] ALICIA 0 mls/hr Titration Protocol 0.04 MG/KG/HR Lactated Ringer's 1,000 mls @ 83.333 mls/hr 04/12/21 01:00 04/12/21 13:40 Lr IV 83.3 mls/hr .Q12H ALICIA Administration Insulin Human Regular 1 - 9 unit 04/11/21 06:00 04/12/21 12:00 Insulin Regular Human 300 Unit/3 Ml Vial SUBQ 1 unit Q6HR ALICIA Administration Protocol Levothyroxine Sodium 112 mcg 04/11/21 07:00 04/12/21 06:59 Levothyroxine 112 Mcg Tablet PO 112 mcg QDAC ALICIA Administration Levothyroxine Sodium 25 mcg 04/11/21 07:00 04/12/21 06:59 Levothyroxine 25 Mcg Tablet PO 25 mcg QDAC ALICIA Administration Methylprednisolone 40 mg 04/11/21 06:00 04/12/21 13:42 Methylprednisolone Succinate 40 Mg/Ml Vial IVP 40 mg TID ALICIA Administration Metoprolol Tartrate 2.5 mg 04/11/21 11:00 04/12/21 11:59 Metoprolol 5 Mg/5 Ml Vial IVP 2.5 mg Q6H ALICIA Administration Pantoprazole Sodium 40 mg 04/11/21 07:00 04/12/21 06:59 Pantoprazole 40 Mg Vial IVP 40 mg QDAC ALICIA Administration Sodium Chloride 10 ml 04/11/21 01:28 04/12/21 06:59 Sodium Chloride Flush 0.9% 10 Ml Syringe IVP 10 ml PRN PRN Administration NEEDED PER PROVIDER ORDERS Sodium Chloride 10 ml 04/11/21 09:00 04/12/21 09:40 Sodium Chloride Flush 0.9% 10 Ml Syringe IVP 10 ml 0100,0900,1700 ALICIA Administration - Lab Result Fish Bone Diagrams: 04/16/21 09:14 04/16/21 09:14 - Additional Planning My Orders: My Active Orders 04/11/21 21:00 Midazolam Drip [Versed Drip] 50 mg in 100 ml IV 0.04 mg/kg/hr 04/12/21 07:53 ED NonViolent Restraints [Initiate NonViolent Restraint] [RC] .PerProtocol Subjective - Subjective Patient Reports: Other (Asleep, awakens and gives thumbs up when spoken to (is intubated on the vent)) Objective Vital Signs: Vital Signs - 24 hr 04/11/21 04/11/21 04/11/21 15:27 16:00 16:44 Temperature 37.4 C Heart Rate 74 Heart Rate [ 77 Monitoring electrodes] Respiratory 14 Rate Blood Pressure 116/48 L Blood Pressure 122/52 L [Left Brachial artery] O2 Saturation 94 04/11/21 04/11/21 04/11/21 16:45 16:50 16:55 Temperature Heart Rate Heart Rate [ 78 76 70 Monitoring electrodes] Respiratory 14 14 14 Rate Blood Pressure Blood Pressure 116/48 L 113/48 L 106/41 L [Left Brachial artery] O2 Saturation 95 93 94 04/11/21 04/11/21 04/11/21 17:00 17:15 17:30 Temperature Heart Rate Heart Rate [ 73 75 79 Monitoring electrodes] Respiratory 14 14 14 Rate Blood Pressure Blood Pressure 107/44 L 138/49 H 141/54 H [Left Brachial artery] O2 Saturation 95 95 96 04/11/21 04/11/21 04/11/21 17:45 18:00 19:00 Temperature Heart Rate Heart Rate [ 73 70 77 Monitoring electrodes] Respiratory 14 14 15 Rate Blood Pressure Blood Pressure 141/54 H 149/50 H 127/62 [Left Brachial artery] O2 Saturation 95 95 94 04/11/21 04/11/21 04/11/21 20:00 20:40 21:00 Temperature Heart Rate 75 Heart Rate [ 75 74 Monitoring electrodes] Respiratory 14 14 Rate Blood Pressure Blood Pressure 124/61 124/93 H [Left Brachial artery] O2 Saturation 91 L 94 04/11/21 04/11/21 04/11/21 22:00 23:00 23:10 Temperature 36.8 C Heart Rate Heart Rate [ 65 68 61 Monitoring electrodes] Respiratory 14 14 Rate Blood Pressure Blood Pressure 110/52 L 135/53 H 126/54 L [Left Brachial artery] O2 Saturation 94 95 04/11/21 04/11/21 04/11/21 23:15 23:20 23:25 Temperature Heart Rate Heart Rate [ 64 66 65 Monitoring electrodes] Respiratory Rate Blood Pressure Blood Pressure 127/52 L 122/55 L 124/54 L [Left Brachial artery] O2 Saturation 04/11/21 04/11/21 04/11/21 23:26 23:30 23:45 Temperature Heart Rate 64 Heart Rate [ 64 63 Monitoring electrodes] Respiratory Rate Blood Pressure Blood Pressure 121/51 L 125/59 L [Left Brachial artery] O2 Saturation 04/12/21 04/12/21 04/12/21 00:00 01:00 01:10 Temperature 36.4 C L Heart Rate Heart Rate [ 62 62 Monitoring electrodes] Respiratory 14 14 Rate Blood Pressure Blood Pressure 120/54 L 125/53 L [Left Brachial artery] O2 Saturation 94 94 04/12/21 04/12/21 04/12/21 02:00 02:49 03:00 Temperature Heart Rate 60 Heart Rate [ 64 59 L Monitoring electrodes] Respiratory 14 14 Rate Blood Pressure Blood Pressure 130/58 L 130/60 [Left Brachial artery] O2 Saturation 94 94 04/12/21 04/12/21 04/12/21 04:00 04:50 05:00 Temperature 36.1 C L Heart Rate Heart Rate [ 61 57 L Monitoring electrodes] Respiratory 14 14 Rate Blood Pressure 118/54 L Blood Pressure 127/56 L 117/57 L [Left Brachial artery] O2 Saturation 94 94 04/12/21 04/12/21 04/12/21 05:46 06:00 07:00 Temperature Heart Rate 71 Heart Rate [ 70 61 Monitoring electrodes] Respiratory 18 14 Rate Blood Pressure Blood Pressure 139/67 H 89/64 L [Left Brachial artery] O2 Saturation 94 93 04/12/21 04/12/21 04/12/21 07:52 08:00 09:00 Temperature 36.7 C Heart Rate 62 Heart Rate [ 60 64 Monitoring electrodes] Respiratory 14 16 Rate Blood Pressure Blood Pressure 147/74 H 136/72 H [Left Brachial artery] O2 Saturation 93 92 04/12/21 04/12/21 04/12/21 10:00 11:00 11:59 Temperature Heart Rate Heart Rate [ 68 65 Monitoring electrodes] Respiratory 14 14 Rate Blood Pressure 153/66 H Blood Pressure 165/69 H 153/66 H [Left Brachial artery] O2 Saturation 93 95 04/12/21 04/12/21 04/12/21 12:00 12:15 13:00 Temperature Heart Rate 74 Heart Rate [ 69 60 Monitoring electrodes] Respiratory 14 16 Rate Blood Pressure Blood Pressure 148/60 H 134/87 H [Left Brachial artery] O2 Saturation 94 95 04/12/21 04/12/21 14:00 15:00 Temperature Heart Rate Heart Rate [ 74 67 Monitoring electrodes] Respiratory 12 11 L Rate Blood Pressure Blood Pressure 149/68 H [Left Brachial artery] O2 Saturation 93 92 Oxygen O2 Source Mechanical ventilator Oxygen Flow Rate 5 I&O (Last 24 Hrs): Intake and Output Totals x24h 04/10/21 04/11/21 04/12/21 23:59 23:59 23:59 Intake Total 572.612 4678.021 Output Total 565 905 Balance -212.522 310.021 General: Other (Lethargic, on ICU sedation, intubated, awakens to name or to touch) HEENT: Mucous membr. moist/pink, Other (Face flushed, Lips jessy (cyanotic)) Neck: No JVD Neuro: Other (Lethargic, mocves all extrem) Cardiovascular: Regular rate, No murmurs Respiratory: Breath sounds nml (on vent), Other (Poor airmovement, but no wheezing or rales) Abdomen: Soft Extremities: No clubbing, No edema - Results Results: Laboratory Results WBC 9.4 x10^3/uL (4.8-10.8) 04/12/21 07:14 RBC 5.59 10^6/uL (4.20-5.40) H 04/12/21 07:14 Hgb 14.8 g/dL (12.0-16.0) 04/12/21 07:14 Hct 48.8 % (37.0-47.0) H 04/12/21 07:14 MCV 87.3 fL (81.0-99.0) 04/12/21 07:14 MCH 26.5 pg (27.0-31.0) L 04/12/21 07:14 MCHC 30.3 g/dL (32.0-36.0) L 04/12/21 07:14 RDW 16.6 % (12.0-15.0) H 04/12/21 07:14 Plt Count 267 10^3/uL (130-450) 04/12/21 07:14 MPV 10.5 fL (7.9-10.8) 04/12/21 07:14 Neut # (Auto) 7.9 10^3/uL (1.5-6.6) H 04/12/21 07:14 Lymph # (Auto) 1.0 10^3/uL (1.5-3.5) L 04/12/21 07:14 [place] # (Auto) 0.5 10^3/uL (0.0-1.0) 04/12/21 07:14 Eos # (Auto) 0.0 10^3/uL (0.0-0.7) 04/12/21 07:14 Baso # (Auto) 0.0 10^3/uL (0.0-0.1) 04/12/21 07:14 Absolute Nucleated RBC 0.00 x10^3/uL 04/12/21 07:14 Nucleated RBC % 0.0 /100WBC 04/12/21 07:14 Manual Slide Review Indicated 04/10/21 23:51 WBC Morphology NORMAL APPEARANCE (NORMAL) 04/10/21 23:51 Platelet Estimate NORMAL (130-450,000) (NORMAL) 04/10/21 23:51 Platelet Morphology NORMAL APPEARANCE (NORMAL) 04/10/21 23:51 RBC Morph Micro Appear NORMAL APPEARANCE (NORMAL) 04/10/21 23:51 D-Dimer 243.8 ng/mL (200.0-255.0) 04/10/21 23:51 Bld Gas Analysis Time 0527 04/12/21 05:12 Sample Site RIGHT RADIAL 04/12/21 05:12 ABG pH 7.59 (7.35-7.45) H 04/12/21 05:12 ABG pCO2 36 mmHg (34-45) 04/12/21 05:12 ABG pO2 67 mmHg (80-100) L 04/12/21 05:12 ABG HCO3 33.6 mmol/L (22.0-26.0) H 04/12/21 05:12 ABG Total CO2 34.7 MMOL/L (21.0-29.0) H 04/12/21 05:12 ABG O2 Saturation 95 % (94-98) 04/12/21 05:12 ABG Base Excess 11.4 mmol/L (-2.0-3.0) H 04/12/21 05:12 Paul Test POSITIVE 04/12/21 05:12 Respiration Rate 14 b/min 04/12/21 05:12 O2 Delivery Device VENTILATOR 04/12/21 05:12 Vent Mode ASSIST/CONTROL 04/12/21 05:12 FiO2 40.00 04/12/21 05:12 Tidal Volume 430 mL 04/12/21 05:12 PEEP 5 cmH2O 04/12/21 05:12 Sodium 141 mmol/L (135-145) 04/12/21 07:14 Potassium 3.5 mmol/L (3.5-5.0) 04/12/21 07:14 Chloride 96 mmol/L (101-111) L 04/12/21 07:14 Carbon Dioxide 30 mmol/L (21-32) 04/12/21 07:14 Anion Gap 15.0 (6-13) H 04/12/21 07:14 BUN 39 mg/dL (6-20) H 04/12/21 07:14 Creatinine 1.2 mg/dL (0.4-1.0) H 04/12/21 07:14 Estimated GFR (MDRD) 43 (>89) L 04/12/21 07:14 Glucose 152 mg/dL (70-100) H 04/12/21 07:14 POC Whole Bld Glucose 146 mg/dL (70 - 100) H 04/12/21 11:57 Calcium 9.0 mg/dL (8.5-10.3) 04/12/21 07:14 Phosphorus 3.2 mg/dL (2.5-4.6) 04/12/21 07:14 Magnesium 1.8 mg/dL (1.7-2.8) 04/12/21 07:14 Total Bilirubin 0.8 mg/dL (0.2-1.0) 04/10/21 23:51 AST 14 IU/L (10-42) 04/10/21 23:51 ALT 15 IU/L (10-60) 04/10/21 23:51 Alkaline Phosphatase 75 IU/L (42-121) 04/10/21 23:51 Troponin I High Sens 12.7 ng/L (2.3-14.8) 04/11/21 09:10 B-Natriuretic Peptide 414 pg/mL (5-100) H 04/10/21 23:51 Total Protein 7.3 g/dL (6.7-8.2) 04/10/21 23:51 Albumin 3.8 g/dL (3.2-5.5) 04/10/21 23:51 Globulin 3.5 g/dL (2.1-4.2) 04/10/21 23:51 Albumin/Globulin Ratio 1.1 (1.0-2.2) 04/10/21 23:51 Lipase 25 U/L (22-51) 04/10/21 23:51 TSH 1.29 uIU/mL (0.34-5.60) 04/12/21 07:14 Nasal Adenovirus (PCR) NOT DETECTED 04/11/21 00:08 Nasal B. parapertussis DNA (PCR) NOT DETECTED 04/11/21 00:08 Nasal Coronavir 229E PCR NOT DETECTED 04/11/21 00:08 Nasal Coronavir HKU1 PCR NOT DETECTED 04/11/21 00:08 Nasal Coronavir NL63 PCR NOT DETECTED 04/11/21 00:08 Nasal Coronavir OC43 PCR NOT DETECTED 04/11/21 00:08 Nasal Enterovir/Rhinovir PCR NOT DETECTED 04/11/21 00:08 Nasal Influenza B PCR NOT DETECTED 04/11/21 00:08 Nasal Influenza A PCR NOT DETECTED 04/11/21 00:08 Nasal Parainfluen 1 PCR NOT DETECTED 04/11/21 00:08 Nasal Parainfluen 2 PCR NOT DETECTED 04/11/21 00:08 Nasal Parainfluen 3 PCR NOT DETECTED 04/11/21 00:08 Nasal Parainfluen 4 PCR NOT DETECTED 04/11/21 00:08 Nasal RSV (PCR) NOT DETECTED 04/11/21 00:08 Nasal Screen MRSA (PCR) NEGATIVE (NEGATIVE) 04/11/21 15:54 Nasal B.pertussis DNA PCR NOT DETECTED 04/11/21 00:08 Nasal C.pneumoniae (PCR) NOT DETECTED 04/11/21 00:08 Roger Human Metapneumo PCR NOT DETECTED 04/11/21 00:08 Nasal M.pneumoniae (PCR) NOT DETECTED 04/11/21 00:08 Nasal SARS-CoV-2 (PCR) NOT DETECTED 04/11/21 00:08 - Procedures Procedures: Procedures ENDOSC POLYPECTOMY OF LG INTEST (11/30/14) EXCISION OF STOMACH, ENDO, DIAGN (07/09/16)
--- NOTE | 2021-04-12 15:48 | PHARMACY PROGRESS NOTE ---
- Best Possible Medication History Admit Date and Time: 04/11/21 0426 Processed by: Pharmacy Medication History completed: Yes Patient Interview: Pt unable to participate Secondary Source(s): Physician records, Pharmacy records, Insurance records (Of note: Patient has not filled furosemide or metoprolol since 11/06/20 (5 months)) As the person ultimately responsible for medication therapy, providers are able to order a medication from an existing home medication list in [facility] via the "Reconcile Routine" prior to Confirmation of that medication by business support professional. Such practice is discouraged except when the physician, in their clinical judg ment, deems that a medical need exists for a medication without regard to previous use.
[2021-04-13] MEDS: INSULIN REGULAR HUMAN 300 UNIT/3 ML VIAL SUBQ SCH ×4 (00:24→18:29)
[2021-04-13] MEDS: hydrALAZINE INJ 20 MG/ML VIAL IVP PRN ×2 (00:25→08:23)
[2021-04-13] MEDS: LACTATED RINGERS 1,000 ML IV SCH ×2 (00:31→12:43)
[2021-04-13] MEDS: METOPROLOL 5 MG/5 ML VIAL IVP SCH ×4 (05:08→22:28)
[2021-04-13] MEDS: SODIUM CHLORIDE FLUSH 0.9% 10 ML SYRINGE IVP PRN ×2 (05:10→06:36)
[2021-04-13] MEDS: methylPREDNISolone SUCCINATE 40 MG/ML VIAL IVP SCH ×3 (05:16→22:28)
[2021-04-13] MEDS: PANTOPRAZOLE 40 MG VIAL IVP SCH (06:32)
[2021-04-13] MEDS: LEVOTHYROXINE 112 MCG TABLET PO SCH (06:32)
[2021-04-13] MEDS: LEVOTHYROXINE 25 MCG TABLET PO SCH (06:32)
[2021-04-13 07:22] LABS: CALCIUM, IONIZED 1.04 mmol/L (1.15-1.33); VBG PH 7.578 (7.31-7.41)
[2021-04-13 07:25] LABS: BASOPHILS % (AUTO) 0.1 %; EOSINOPHILS % (AUTO) 0.1 %; HCT - HEMATOCRIT 52.3 % (37.0-47.0); HGB - HEMOGLOBIN 15.7 g/dL (12.0-16.0); LYMPHOCYTES # (AUTO) 1.2 10^3/uL (1.5-3.5); LYMPHOCYTES % (AUTO) 11.5 %; MEAN CORPUSCULAR HEMOGLOBIN 26.2 pg (27.0-31.0); MEAN CORPUSCULAR VOLUME 87.3 fL (81.0-99.0); MEAN PLATELET VOLUME 10.4 fL (7.9-10.8); MONOCYTES # (AUTO) 0.5 10^3/uL (0.0-1.0); NEUTROPHILS # (AUTO) 8.4 10^3/uL (1.5-6.6); NEUTROPHILS % (AUTO) 82.9 %; PLT - PLATELET COUNT 241 10^3/uL (130-450); RED BLOOD COUNT 5.99 10^6/uL (4.20-5.40); RED CELL DISTRIBUTION WIDTH 17.6 % (12.0-15.0); WHITE BLOOD COUNT 10.2 x10^3/uL (4.8-10.8)
[2021-04-13 07:38] LABS: CALCIUM 8.9 mg/dL (8.5-10.3); CREATININE 0.9 mg/dL (0.4-1.0); MAGNESIUM 2.1 mg/dL (1.7-2.8); PHOSPHORUS 4.1 mg/dL (2.5-4.6); POTASSIUM 3.3 mmol/L (3.5-5.0)
[2021-04-13] MEDS ORDERED: SODIUM CHLORIDE INHALATION 3 ML NEB ONE (08:13)
[2021-04-13] MEDS: POTASSIUM CHLORIDE 20 MEQ/15 ML UDC PO SCH ×2 (08:22→10:18)
[2021-04-13] MEDS: CHLORHEXIDINE GLUCONATE 15 ML UDC PO SCH ×2 (08:23→20:43)
[2021-04-13] MEDS: SODIUM CHLORIDE FLUSH 0.9% 10 ML SYRINGE IVP SCH ×3 (08:23→23:03)
[2021-04-13] MEDS ORDERED: CALCIUM GLUCONATE 1,000 MG in SODIUM CHLORIDE 0.9% 50 ML IV ONE (09:00)
--- NOTE | 2021-04-13 11:52 | PROVIDER PROGRESS NOTE ---
Assessment/Plan - Problem List (1) Respiratory arrest Assessment/Plan: Pt was weaned on her vent settings this a.m., she tolerated it and had good weaning parameters. She was alert off Versed drip for several hours and was able to be extubated this morning. She has evidence of hypoventilation with CO2 retention on her labs. Plan to have her remain in ICU today, in case she tires and has hypopnea again and needs BIPAP or ventilator support again. Continue suppl O2 keeping sats 88% or above. (2) Acute on chronic respiratory failure with hypoxia and hypercapnia Assessment/Plan: She was extubated this morning. She has evidence of hypoventilation and CO2 retention on her labs. Plan to have her remain in ICU today, in case she tires and has hypopnea again and needs BIPAP or ventilator support again. Continue suppl O2 keeping sats 88% or above. Avoid sedatives that may add to sedation and hypopnea (3) Exacerbation of asthma Qualifiers: Asthma severity: moderate Asthma persistence: unspecified Qualified Code(s): J45.901 - Unspecified asthma with (acute) exacerbation Assessment/Plan: As per Hx, however her old spirometry shows mild abnormality. She has the exam of a COPDer, however, with cyanotic lips, jessy complexion and labs show high Hgb/Hct, as seen in chronically hypoxic patients. Will continue empiric tx as for COPD 4) Chronic kidney disease, stage III (moderate) Conclusion/Plan: Stable. Avoid nephrotoxic agents Monitor BUN/creatinine daily Qualifiers: Chronic kidney disease stage 3 subtype: stage 3a (GFR 45-59) Qualified Code(s): N18.31 - Chronic kidney disease, stage 3a . (5) Glucose intolerance (impaired glucose tolerance) Conclusion/Plan: Sliding scale insulin coverage was ordered while not eating, on ventilator Starting pureed after she tolerated clear liquids, after extubated this a.m. (6) Hypertension Conclusion/Plan: Continue B-jeffy however, per our Pharmacy, the 200 mg dose was just increased from 50 as an outpt and she had not yet started that. If that was truly done, it is an excessive dose increase in 1 step. Will continue 50 mg dose currently. - Current Meds Current Meds: Current Medications Generic Name Dose Route Start Last Admin Trade Name Freq PRN Reason Stop Dose Admin Albuterol/Ipratropium 3 ml 04/11/21 01:30 04/13/21 11:30 Ipratropium/Albuterol 3 Ml Neb INH 3 ml Q4HR PRN Administration Wheezing Chlorhexidine Gluconate 15 ml 04/11/21 09:00 04/13/21 08:23 Chlorhexidine Gluconate 15 Ml Udc PO 15 ml BID ALICIA Administration Hydralazine HCl 10 mg 04/13/21 00:12 04/13/21 08:23 Hydralazine Inj 20 Mg/Ml Vial IVP 10 mg TID PRN Administration PER PHYSICIAN ORDER Propofol 500 mg in 50 mls @ 2.926 mls/hr 04/11/21 08:00 04/11/21 21:20 Diprivan IV Infused .[id number] ALICIA Titration Protocol 5 MCG/KG/MIN Midazolam HCl 50 mg in 100 mls @ 7.802 mls/hr 04/11/21 21:00 04/13/21 04:40 Versed Drip IV 0 mg/kg/hr .[id number] ALICIA 0 mls/hr Titration Protocol 0.04 MG/KG/HR Lactated Ringer's 1,000 mls @ 83.333 mls/hr 04/12/21 01:00 04/13/21 08:00 Lr IV 83.3 mls/hr .Q12H ALICIA Infusion Insulin Human Regular 1 - 9 unit 04/11/21 06:00 04/13/21 06:32 Insulin Regular Human 300 Unit/3 Ml Vial SUBQ Not Given Q6HR ALICIA Protocol Levothyroxine Sodium 112 mcg 04/11/21 07:00 04/13/21 06:32 Levothyroxine 112 Mcg Tablet PO 112 mcg QDAC ALICIA Administration Levothyroxine Sodium 25 mcg 04/11/21 07:00 04/13/21 06:32 Levothyroxine 25 Mcg Tablet PO 25 mcg QDAC ALICIA Administration Methylprednisolone 40 mg 04/11/21 06:00 04/13/21 05:16 Methylprednisolone Succinate 40 Mg/Ml Vial IVP 40 mg TID ALICIA Administration Metoprolol Tartrate 2.5 mg 04/11/21 11:00 04/13/21 05:08 Metoprolol 5 Mg/5 Ml Vial IVP 2.5 mg Q6H ALICIA Administration Pantoprazole Sodium 40 mg 04/11/21 07:00 04/13/21 06:32 Pantoprazole 40 Mg Vial IVP 40 mg QDAC ALICIA Administration Sodium Chloride 10 ml 04/11/21 01:28 04/13/21 06:36 Sodium Chloride Flush 0.9% 10 Ml Syringe IVP 10 ml PRN PRN Administration NEEDED PER PROVIDER ORDERS Sodium Chloride 10 ml 04/11/21 09:00 04/13/21 08:23 Sodium Chloride Flush 0.9% 10 Ml Syringe IVP 10 ml 0100,0900,1700 ALICIA Administration - Lab Result Fish Bone Diagrams: 04/16/21 09:14 04/16/21 09:14 - Additional Planning My Orders: My Active Orders 04/13/21 07:53 ED NonViolent Restraints [Initiate NonViolent Restraint] [RC] .PerProtocol 04/13/21 10:25 Extubate [RC] ONCE 04/13/21 11:34 Nebulizer/MDI Tx. [RC] QID 04/14/21 05:00 CALCIUM, IONIZED ([facility]) [BG] DAILYLAB 04/15/21 05:00 CALCIUM, IONIZED ([facility]) [BG] DAILYLAB Subjective - Subjective Patient Reports: Feeling Better, Other (Awake, hoarse after extubation, states how appreciative she is, daughter at bedside) Objective Vital Signs: Vital Signs - 24 hr 04/12/21 04/12/21 04/12/21 11:59 12:00 12:15 Temperature Heart Rate 74 Heart Rate [ 69 Monitoring electrodes] Respiratory 14 Rate Blood Pressure 153/66 H Blood Pressure 148/60 H [Left Brachial artery] O2 Saturation 94 04/12/21 04/12/21 04/12/21 13:00 14:00 15:00 Temperature Heart Rate Heart Rate [ 60 74 67 Monitoring electrodes] Respiratory 16 12 11 L Rate Blood Pressure Blood Pressure 134/87 H 149/68 H [Left Brachial artery] O2 Saturation 95 93 92 04/12/21 04/12/21 04/12/21 15:59 16:00 17:00 Temperature 37.1 C 37.1 C Heart Rate Heart Rate [ 69 77 Monitoring electrodes] Respiratory 13 14 Rate Blood Pressure Blood Pressure 143/65 H 152/71 H [Left Brachial artery] O2 Saturation 95 94 04/12/21 04/12/21 04/12/21 17:19 18:00 19:00 Temperature 36.8 C Heart Rate 78 Heart Rate [ 76 71 Monitoring electrodes] Respiratory 16 14 Rate Blood Pressure Blood Pressure 149/80 H 145/86 H [Left Brachial artery] O2 Saturation 95 95 04/12/21 04/12/21 04/12/21 19:30 20:00 21:00 Temperature Heart Rate 70 Heart Rate [ 79 67 Monitoring electrodes] Respiratory 14 14 Rate Blood Pressure Blood Pressure 157/77 H 151/76 H [Left Brachial artery] O2 Saturation 95 96 04/12/21 04/12/21 04/12/21 21:40 22:00 23:00 Temperature Heart Rate 69 Heart Rate [ 69 61 Monitoring electrodes] Respiratory 14 14 Rate Blood Pressure Blood Pressure 150/86 H 160/82 H [Left Brachial artery] O2 Saturation 95 95 04/12/21 04/12/21 04/12/21 23:07 23:26 23:52 Temperature 36.2 C L Heart Rate 56 L Heart Rate [ Monitoring electrodes] Respiratory Rate Blood Pressure 160/82 H Blood Pressure [Left Brachial artery] O2 Saturation 04/13/21 04/13/21 04/13/21 00:00 00:25 00:27 Temperature Heart Rate Heart Rate [ 70 68 Monitoring electrodes] Respiratory 14 Rate Blood Pressure 168/73 H Blood Pressure 168/73 H 153/66 H [Left Brachial artery] O2 Saturation 96 04/13/21 04/13/21 04/13/21 00:30 00:35 00:40 Temperature Heart Rate Heart Rate [ 70 72 74 Monitoring electrodes] Respiratory Rate Blood Pressure Blood Pressure 144/65 H 138/58 H 126/68 [Left Brachial artery] O2 Saturation 04/13/21 04/13/21 04/13/21 00:45 00:55 01:00 Temperature Heart Rate Heart Rate [ 73 67 Monitoring electrodes] Respiratory 14 Rate Blood Pressure 119/51 L Blood Pressure 129/59 L 119/51 L [Left Brachial artery] O2 Saturation 96 04/13/21 04/13/21 04/13/21 01:15 01:30 01:35 Temperature Heart Rate 57 L Heart Rate [ 61 60 Monitoring electrodes] Respiratory Rate Blood Pressure Blood Pressure 114/53 L 127/55 L [Left Brachial artery] O2 Saturation 04/13/21 04/13/21 04/13/21 02:00 03:00 03:25 Temperature 36.3 C L Heart Rate 69 Heart Rate [ 55 L 78 Monitoring electrodes] Respiratory 14 14 Rate Blood Pressure Blood Pressure 118/54 L 134/74 H [Left Brachial artery] O2 Saturation 95 95 04/13/21 04/13/21 04/13/21 04:00 05:00 05:08 Temperature Heart Rate Heart Rate [ 85 69 Monitoring electrodes] Respiratory 21 14 Rate Blood Pressure 140/68 H Blood Pressure 115/90 H 140/68 H [Left Brachial artery] O2 Saturation 97 95 04/13/21 04/13/21 04/13/21 05:11 05:15 05:20 Temperature Heart Rate Heart Rate [ 71 72 72 Monitoring electrodes] Respiratory Rate Blood Pressure Blood Pressure 150/73 H 132/99 H 120/73 [Left Brachial artery] O2 Saturation 04/13/21 04/13/21 04/13/21 05:25 05:35 06:00 Temperature Heart Rate 71 Heart Rate [ 71 79 Monitoring electrodes] Respiratory 14 Rate Blood Pressure Blood Pressure 135/73 H 151/71 H [Left Brachial artery] O2 Saturation 96 04/13/21 04/13/21 04/13/21 07:00 07:35 07:50 Temperature Heart Rate 86 78 Heart Rate [ 84 Monitoring electrodes] Respiratory 16 Rate Blood Pressure Blood Pressure 154/80 H [Left Brachial artery] O2 Saturation 96 04/13/21 04/13/21 04/13/21 08:00 08:23 08:30 Temperature 37 C Heart Rate Heart Rate [ 100 Monitoring electrodes] Respiratory 18 Rate Blood Pressure 168/70 H Blood Pressure 168/75 H 164/76 H [Left Brachial artery] O2 Saturation 95 04/13/21 04/13/21 04/13/21 08:35 08:53 09:00 Temperature Heart Rate Heart Rate [ 102 H Monitoring electrodes] Respiratory 22 Rate Blood Pressure 139/67 H Blood Pressure 159/79 H 131/51 H [Left Brachial artery] O2 Saturation 94 04/13/21 04/13/21 04/13/21 09:20 10:00 11:30 Temperature Heart Rate 96 100 Heart Rate [ 102 H Monitoring electrodes] Respiratory 18 24 Rate Blood Pressure Blood Pressure 131/72 H [Left Brachial artery] O2 Saturation 93 Oxygen O2 Source Nasal cannula Oxygen Flow Rate 5 I&O (Last 24 Hrs): Intake and Output Totals x24h 04/11/21 04/12/21 04/13/21 23:59 23:59 23:59 Intake Total 583.937 0439.436 920.750 Output Total 565 1130 740 Balance -212.522 958.436 180.750 General: Alert, Oriented x3, Other (Slow answers in short sentences, after extubation this morning) HEENT: Mucous membr. moist/pink, Other (Lips are cyanotic) Neck: No JVD (in vertical position, however) Neuro: Alert, Non Focal, Other (Slow to answer) Cardiovascular: Regular rate Respiratory: No respiratory distress (On O2 per n.c.) Abdomen: Soft Extremities: No edema, No tenderness/swelling - Results Results: Laboratory Results WBC 10.2 x10^3/uL (4.8-10.8) 04/13/21 06:43 RBC 5.99 10^6/uL (4.20-5.40) H 04/13/21 06:43 Hgb 15.7 g/dL (12.0-16.0) 04/13/21 06:43 Hct 52.3 % (37.0-47.0) H 04/13/21 06:43 MCV 87.3 fL (81.0-99.0) 04/13/21 06:43 MCH 26.2 pg (27.0-31.0) L 04/13/21 06:43 MCHC 30.0 g/dL (32.0-36.0) L 04/13/21 06:43 RDW 17.6 % (12.0-15.0) H 04/13/21 06:43 Plt Count 241 10^3/uL (130-450) 04/13/21 06:43 MPV 10.4 fL (7.9-10.8) 04/13/21 06:43 Neut # (Auto) 8.4 10^3/uL (1.5-6.6) H 04/13/21 06:43 Lymph # (Auto) 1.2 10^3/uL (1.5-3.5) L 04/13/21 06:43 [place] # (Auto) 0.5 10^3/uL (0.0-1.0) 04/13/21 06:43 Eos # (Auto) 0.0 10^3/uL (0.0-0.7) 04/13/21 06:43 Baso # (Auto) 0.0 10^3/uL (0.0-0.1) 04/13/21 06:43 Absolute Nucleated RBC 0.00 x10^3/uL 04/13/21 06:43 Nucleated RBC % 0.0 /100WBC 04/13/21 06:43 Manual Slide Review Indicated 04/10/21 23:51 WBC Morphology NORMAL APPEARANCE (NORMAL) 04/10/21 23:51 Platelet Estimate NORMAL (130-450,000) (NORMAL) 04/10/21 23:51 Platelet Morphology NORMAL APPEARANCE (NORMAL) 04/10/21 23:51 RBC Morph Micro Appear NORMAL APPEARANCE (NORMAL) 04/10/21 23:51 D-Dimer 243.8 ng/mL (200.0-255.0) 04/10/21 23:51 Bld Gas Analysis Time 0504/12/21 05:12 Sample Site RIGHT RADIAL 04/12/21 05:12 ABG pH 7.59 (7.35-7.45) H 04/12/21 05:12 ABG pCO2 36 mmHg (34-45) 04/12/21 05:12 ABG pO2 67 mmHg (80-100) L 04/12/21 05:12 ABG HCO3 33.6 mmol/L (22.0-26.0) H 04/12/21 05:12 ABG Total CO2 34.7 MMOL/L (21.0-29.0) H 04/12/21 05:12 ABG O2 Saturation 95 % (94-98) 04/12/21 05:12 ABG Base Excess 11.4 mmol/L (-2.0-3.0) H 04/12/21 05:12 Paul Test POSITIVE 04/12/21 05:12 VBG pH 7.578 (7.31-7.41) H 04/13/21 06:38 Ionized Calcium 1.04 mmol/L (1.15-1.33) L 04/13/21 06:38 Respiration Rate 14 b/min 04/12/21 05:12 O2 Delivery Device VENTILATOR 04/12/21 05:12 Vent Mode ASSIST/CONTROL 04/12/21 05:12 FiO2 40.00 04/12/21 05:12 Tidal Volume 430 mL 04/12/21 05:12 PEEP 5 cmH2O 04/12/21 05:12 Sodium 142 mmol/L (135-145) 04/13/21 06:43 Potassium 3.3 mmol/L (3.5-5.0) L 04/13/21 06:43 Chloride 99 mmol/L (101-111) L 04/13/21 06:43 Carbon Dioxide 28 mmol/L (21-32) 04/13/21 06:43 Anion Gap 15.0 (6-13) H 04/13/21 06:43 BUN 39 mg/dL (6-20) H 04/13/21 06:43 Creatinine 0.9 mg/dL (0.4-1.0) 04/13/21 06:43 Estimated GFR (MDRD) 60 (>89) L 04/13/21 06:43 Glucose 139 mg/dL (70-100) H 04/13/21 06:43 POC Whole Bld Glucose 121 mg/dL (70 - 100) H 04/13/21 06:11 Calcium 8.9 mg/dL (8.5-10.3) 04/13/21 06:43 Phosphorus 4.1 mg/dL (2.5-4.6) 04/13/21 06:43 Magnesium 2.1 mg/dL (1.7-2.8) 04/13/21 06:43 Total Bilirubin 0.8 mg/dL (0.2-1.0) 04/10/21 23:51 AST 14 IU/L (10-42) 04/10/21 23:51 ALT 15 IU/L (10-60) 04/10/21 23:51 Alkaline Phosphatase 75 IU/L (42-121) 04/10/21 23:51 Troponin I High Sens 12.7 ng/L (2.3-14.8) 04/11/21 09:10 B-Natriuretic Peptide 414 pg/mL (5-100) H 04/10/21 23:51 Total Protein 7.3 g/dL (6.7-8.2) 04/10/21 23:51 Albumin 3.8 g/dL (3.2-5.5) 04/10/21 23:51 Globulin 3.5 g/dL (2.1-4.2) 04/10/21 23:51 Albumin/Globulin Ratio 1.1 (1.0-2.2) 04/10/21 23:51 Lipase 25 U/L (22-51) 04/10/21 23:51 TSH 1.29 uIU/mL (0.34-5.60) 04/12/21 07:14 Nasal Adenovirus (PCR) NOT DETECTED 04/11/21 00:08 Nasal B. parapertussis DNA (PCR) NOT DETECTED 04/11/21 00:08 Nasal Coronavir 229E PCR NOT DETECTED 04/11/21 00:08 Nasal Coronavir HKU1 PCR NOT DETECTED 04/11/21 00:08 Nasal Coronavir NL63 PCR NOT DETECTED 04/11/21 00:08 Nasal Coronavir OC43 PCR NOT DETECTED 04/11/21 00:08 Nasal Enterovir/Rhinovir PCR NOT DETECTED 04/11/21 00:08 Nasal Influenza B PCR NOT DETECTED 04/11/21 00:08 Nasal Influenza A PCR NOT DETECTED 04/11/21 00:08 Nasal Parainfluen 1 PCR NOT DETECTED 04/11/21 00:08 Nasal Parainfluen 2 PCR NOT DETECTED 04/11/21 00:08 Nasal Parainfluen 3 PCR NOT DETECTED 04/11/21 00:08 Nasal Parainfluen 4 PCR NOT DETECTED 04/11/21 00:08 Nasal RSV (PCR) NOT DETECTED 04/11/21 00:08 Nasal Screen MRSA (PCR) NEGATIVE (NEGATIVE) 04/11/21 15:54 Nasal B.pertussis DNA PCR NOT DETECTED 04/11/21 00:08 Nasal C.pneumoniae (PCR) NOT DETECTED 04/11/21 00:08 Roger Human Metapneumo PCR NOT DETECTED 04/11/21 00:08 Nasal M.pneumoniae (PCR) NOT DETECTED 04/11/21 00:08 Nasal SARS-CoV-2 (PCR) NOT DETECTED 04/11/21 00:08 - Procedures Procedures: Procedures ENDOSC POLYPECTOMY OF LG INTEST (11/30/14) EXCISION OF STOMACH, ENDO, DIAGN (07/09/16)
[2021-04-13] MEDS: MIDAZOLAM DRIP 50 MG/100 ML BAG IV SCH (12:07)
[2021-04-13 19:19] LABS: CALCIUM, IONIZED 1.09 mmol/L (1.15-1.33); VBG PH 7.401 (7.31-7.41)
[2021-04-13] MEDS: CALCIUM CARBONATE CHEW 500 MG TABLET PO SCH (20:43)
[2021-04-14] MEDS: INSULIN REGULAR HUMAN 300 UNIT/3 ML VIAL SUBQ SCH (00:36)
[2021-04-14] MEDS: CALCIUM CARBONATE CHEW 500 MG TABLET PO SCH (00:36)
[2021-04-14] MEDS: LACTATED RINGERS 1,000 ML IV SCH (00:36)
[2021-04-14] MEDS: hydrALAZINE INJ 20 MG/ML VIAL IVP PRN (01:15)
[2021-04-14 05:48] LABS: CALCIUM, IONIZED 1.15 mmol/L (1.15-1.33); VBG PH 7.341 (7.31-7.41)
[2021-04-14 05:51] LABS: BASOPHILS % (AUTO) 0.1 %; HCT - HEMATOCRIT 54.3 % (37.0-47.0); HGB - HEMOGLOBIN 15.4 g/dL (12.0-16.0); LYMPHOCYTES # (AUTO) 0.7 10^3/uL (1.5-3.5); LYMPHOCYTES % (AUTO) 6.9 %; MEAN CORPUSCULAR HEMOGLOBIN 26.2 pg (27.0-31.0); MEAN CORPUSCULAR HGB CONC 28.4 g/dL (32.0-36.0); MEAN CORPUSCULAR VOLUME 92.3 fL (81.0-99.0); MEAN PLATELET VOLUME 10.7 fL (7.9-10.8); MONOCYTES # (AUTO) 0.3 10^3/uL (0.0-1.0); MONOCYTES % (AUTO) 2.8 %; NEUTROPHILS # (AUTO) 9.3 10^3/uL (1.5-6.6); NEUTROPHILS % (AUTO) 89.6 %; PLT - PLATELET COUNT 188 10^3/uL (130-450); RED BLOOD COUNT 5.88 10^6/uL (4.20-5.40); RED CELL DISTRIBUTION WIDTH 17.6 % (12.0-15.0); WHITE BLOOD COUNT 10.4 x10^3/uL (4.8-10.8)
[2021-04-14 06:15] LABS: CALCIUM 9.1 mg/dL (8.5-10.3); CREATININE 0.9 mg/dL (0.4-1.0); MAGNESIUM 2.3 mg/dL (1.7-2.8); POTASSIUM 4.2 mmol/L (3.5-5.0)
[2021-04-14] MEDS: methylPREDNISolone SUCCINATE 40 MG/ML VIAL IVP SCH ×2 (06:43→14:44)
[2021-04-14] MEDS: LEVOTHYROXINE 112 MCG TABLET PO SCH (06:44)
[2021-04-14] MEDS: PANTOPRAZOLE 40 MG VIAL IVP SCH (06:44)
[2021-04-14] MEDS: LEVOTHYROXINE 25 MCG TABLET PO SCH (06:44)
[2021-04-14] MEDS: INSULIN ASPART 300 UNIT/3 ML PEN SUBQ SCH ×3 (07:48→17:14)
[2021-04-14] MEDS ORDERED: SODIUM CHLORIDE 0.45% 1,000 ML IV SCH (10:00)
[2021-04-14] MEDS: METOPROLOL SUCCINATE 50 MG TABLET PO SCH (10:02)
[2021-04-14] MEDS: CHLORHEXIDINE GLUCONATE 15 ML UDC PO SCH (10:03)
[2021-04-14] MEDS: SODIUM CHLORIDE FLUSH 0.9% 10 ML SYRINGE IVP SCH ×2 (10:03→17:13)
[2021-04-14] MEDS: allopurinoL 100 MG TABLET PO SCH (10:03)
[2021-04-14] MEDS: CHOLECALCIFEROL 25 MCG TABLET PO SCH (10:03)
[2021-04-14] MEDS ORDERED: polyethylene glycoL 3350 17 GM PACKET PO SCH (11:00)
--- NOTE | 2021-04-14 16:00 | PROVIDER PROGRESS NOTE ---
Assessment/Plan - Problem List (3) Exacerbation of asthma Qualifiers: Asthma severity: moderate Asthma persistence: unspecified Qualified Code(s): J45.901 - Unspecified asthma with (acute) exacerbation - Current Meds Current Meds: Current Medications Generic Name Dose Route Start Last Admin Trade Name Freq PRN Reason Stop Dose Admin Albuterol/Ipratropium 3 ml 04/11/21 01:30 04/13/21 11:30 Ipratropium/Albuterol 3 Ml Neb INH 3 ml Q4HR PRN Administration Wheezing Allopurinol 300 mg 04/14/21 10:00 04/14/21 10:03 Allopurinol 100 Mg Tablet PO 300 mg DAILY ALICIA Administration Chlorhexidine Gluconate 15 ml 04/11/21 09:00 04/14/21 10:03 Chlorhexidine Gluconate 15 Ml Udc PO 15 ml BID ALICIA Administration Cholecalciferol 50 mcg 04/14/21 10:30 04/14/21 10:03 Cholecalciferol 25 Mcg Tablet PO 50 mcg DAILY ALICIA Administration Hydralazine HCl 10 mg 04/13/21 00:12 04/14/21 01:15 Hydralazine Inj 20 Mg/Ml Vial IVP 10 mg TID PRN Administration PER PHYSICIAN ORDER Sodium Chloride 1,000 mls @ 83.333 mls/hr 04/14/21 10:00 04/14/21 11:17 Normal Saline 0.45% IV 04/14/21 21:59 83.333 mls/hr .Q12H ALICIA Administration Insulin Aspart 1 - 9 unit 04/14/21 08:00 04/14/21 13:15 Insulin Aspart 300 Unit/3 Ml Pen SUBQ 1 unit 0800,1200,1700,2100 ALICIA Administration Protocol Levothyroxine Sodium 112 mcg 04/11/21 07:00 04/14/21 06:44 Levothyroxine 112 Mcg Tablet PO 112 mcg QDAC ALICIA Administration Levothyroxine Sodium 25 mcg 04/11/21 07:00 04/14/21 06:44 Levothyroxine 25 Mcg Tablet PO 25 mcg QDAC ALICIA Administration Methylprednisolone 40 mg 04/11/21 06:00 04/14/21 14:44 Methylprednisolone Succinate 40 Mg/Ml Vial IVP 40 mg TID ALICIA Administration Metoprolol Succinate 50 mg 04/14/21 09:00 04/14/21 10:02 Metoprolol Succinate 50 Mg Tablet PO 50 mg DAILY ALICIA Administration Pantoprazole Sodium 40 mg 04/11/21 07:00 04/14/21 06:44 Pantoprazole 40 Mg Vial IVP 40 mg QDAC ALICIA Administration Polyethylene Glycol 17 gm 04/14/21 11:00 04/14/21 11:17 Polyethylene Glycol 3350 17 Gm Packet PO 17 gm DAILY ALICIA Administration Sodium Chloride 10 ml 04/11/21 01:28 04/13/21 06:36 Sodium Chloride Flush 0.9% 10 Ml Syringe IVP 10 ml PRN PRN Administration NEEDED PER PROVIDER ORDERS Sodium Chloride 10 ml 04/11/21 09:00 04/14/21 10:03 Sodium Chloride Flush 0.9% 10 Ml Syringe IVP Not Given 0100,0900,1700 ALICIA - Lab Result Fish Bone Diagrams: 04/14/21 04:30 04/14/21 04:30 - Additional Planning My Orders: My Active Orders 04/13/21 19:22 Benzocaine/Menthol [Cepacol] 1 lozenge MM Q2HR PRN 04/14/21 08:00 Insulin Aspart [NovoLOG] 1 - 9 unit SUBQ 0800,1200,1700,2100 04/14/21 09:00 Metoprolol Succinate [Toprol Xl] 50 mg PO DAILY 04/14/21 10:00 Sodium Chloride 0.45% [Normal Saline 0.45%] 1,000 ml IV 83.333 mls/hr allopurinoL [Zyloprim] 300 mg PO DAILY 04/14/21 10:30 Cholecalciferol [Vitamin D3] 50 mcg PO DAILY 04/14/21 11:00 polyethylene glycoL 3350 [Miralax] 17 gm PO DAILY 04/14/21 11:12 Telemetry- [RC] Q4HR 04/14/21 Lunch DIET [Soft Mechanical Diet] [DIET] 04/15/21 05:00 BNP - B-NATRIURETIC PEPTIDE [IAI] DAILYLAB CALCIUM, IONIZED ([facility]) [BG] DAILYLAB MAGNESIUM [CHEM] DAILYLAB Objective Vital Signs: Vital Signs - 24 hr 04/13/21 04/13/21 04/13/21 17:00 18:00 18:28 Temperature Heart Rate Heart Rate [ 95 97 Monitoring electrodes] Respiratory 23 25 H Rate Blood Pressure 120/71 Blood Pressure 150/78 H 130/66 [Left Brachial artery] O2 Saturation 95 92 04/13/21 04/13/21 04/13/21 19:00 19:56 20:00 Temperature 37.1 C Heart Rate Heart Rate [ 91 91 Monitoring electrodes] Respiratory 22 26 H Rate Blood Pressure Blood Pressure 131/71 H 108/83 H [Left Brachial artery] O2 Saturation 94 92 04/13/21 04/13/21 04/13/21 20:15 21:00 22:00 Temperature Heart Rate 82 Heart Rate [ 85 82 Monitoring electrodes] Respiratory 20 23 21 Rate Blood Pressure Blood Pressure 145/71 H 162/79 H [Left Brachial artery] O2 Saturation 92 93 04/13/21 04/13/21 04/14/21 22:28 23:00 00:00 Temperature Heart Rate Heart Rate [ 83 74 Monitoring electrodes] Respiratory 23 23 Rate Blood Pressure 162/79 H Blood Pressure 185/75 H 165/85 H [Left Brachial artery] O2 Saturation 93 94 04/14/21 04/14/21 04/14/21 01:00 01:15 01:22 Temperature Heart Rate Heart Rate [ 75 Monitoring electrodes] Respiratory 27 H Rate Blood Pressure 188/82 H Blood Pressure 182/82 H 151/71 H [Left Brachial artery] O2 Saturation 91 L 04/14/21 04/14/21 04/14/21 01:35 01:45 02:00 Temperature Heart Rate Heart Rate [ 85 Monitoring electrodes] Respiratory 23 Rate Blood Pressure 150/70 H Blood Pressure 144/95 H 152/67 H [Left Brachial artery] O2 Saturation 91 L 04/14/21 04/14/21 04/14/21 03:00 04:00 05:00 Temperature Heart Rate Heart Rate [ 82 78 86 Monitoring electrodes] Respiratory 22 20 24 Rate Blood Pressure Blood Pressure 150/66 H 133/57 H 163/65 H [Left Brachial artery] O2 Saturation 93 95 93 04/14/21 04/14/21 04/14/21 06:00 06:52 07:00 Temperature 36.7 C Heart Rate Heart Rate [ 80 84 Monitoring electrodes] Respiratory 17 22 Rate Blood Pressure Blood Pressure 152/72 H 152/70 H [Left Brachial artery] O2 Saturation 96 93 91 L 04/14/21 04/14/21 04/14/21 07:45 08:00 09:00 Temperature 36.6 C 36.8 C Heart Rate 88 Heart Rate [ 87 94 Monitoring electrodes] Respiratory 22 23 25 H Rate Blood Pressure Blood Pressure 160/83 H 146/64 H [Left Brachial artery] O2 Saturation 91 L 92 04/14/21 04/14/21 04/14/21 10:00 11:00 14:50 Temperature Heart Rate Heart Rate [ 93 79 76 Monitoring electrodes] Respiratory 27 H 22 22 Rate Blood Pressure Blood Pressure 163/70 H 159/72 H 163/63 H [Left Brachial artery] O2 Saturation 92 93 97 Oxygen O2 Source Nasal cannula Oxygen Flow Rate 5 I&O (Last 24 Hrs): Intake and Output Totals x24h 04/12/21 04/13/21 04/14/21 23:59 23:59 23:59 Intake Total 2088.436 6962.600 6027.882 Output Total 1130 1114 943 Balance 958.436 309.602 9060.882 - Results Results: Laboratory Results WBC 10.4 x10^3/uL (4.8-10.8) 04/14/21 04:30 RBC 5.88 10^6/uL (4.20-5.40) H 04/14/21 04:30 Hgb 15.4 g/dL (12.0-16.0) 04/14/21 04:30 Hct 54.3 % (37.0-47.0) H 04/14/21 04:30 MCV 92.3 fL (81.0-99.0) 04/14/21 04:30 MCH 26.2 pg (27.0-31.0) L 04/14/21 04:30 MCHC 28.4 g/dL (32.0-36.0) L 04/14/21 04:30 RDW 17.6 % (12.0-15.0) H 04/14/21 04:30 Plt Count 188 10^3/uL (130-450) 04/14/21 04:30 MPV 10.7 fL (7.9-10.8) 04/14/21 04:30 Neut # (Auto) 9.3 10^3/uL (1.5-6.6) H 04/14/21 04:30 Lymph # (Auto) 0.7 10^3/uL (1.5-3.5) L 04/14/21 04:30 [place] # (Auto) 0.3 10^3/uL (0.0-1.0) 04/14/21 04:30 Eos # (Auto) 0.0 10^3/uL (0.0-0.7) 04/14/21 04:30 Baso # (Auto) 0.0 10^3/uL (0.0-0.1) 04/14/21 04:30 Absolute Nucleated RBC 0.00 x10^3/uL 04/14/21 04:30 Nucleated RBC % 0.0 /100WBC 04/14/21 04:30 Manual Slide Review Indicated 04/10/21 23:51 WBC Morphology NORMAL APPEARANCE (NORMAL) 04/10/21 23:51 Platelet Estimate NORMAL (130-450,000) (NORMAL) 04/10/21 23:51 Platelet Morphology NORMAL APPEARANCE (NORMAL) 04/10/21 23:51 RBC Morph Micro Appear NORMAL APPEARANCE (NORMAL) 04/10/21 23:51 D-Dimer 243.8 ng/mL (200.0-255.0) 04/10/21 23:51 Bld Gas Analysis Time 0504/12/21 05:12 Sample Site RIGHT RADIAL 04/12/21 05:12 ABG pH 7.59 (7.35-7.45) H 04/12/21 05:12 ABG pCO2 36 mmHg (34-45) 04/12/21 05:12 ABG pO2 67 mmHg (80-100) L 04/12/21 05:12 ABG HCO3 33.6 mmol/L (22.0-26.0) H 04/12/21 05:12 ABG Total CO2 34.7 MMOL/L (21.0-29.0) H 04/12/21 05:12 ABG O2 Saturation 95 % (94-98) 04/12/21 05:12 ABG Base Excess 11.4 mmol/L (-2.0-3.0) H 04/12/21 05:12 Paul Test POSITIVE 04/12/21 05:12 VBG pH 7.341 (7.31-7.41) 04/14/21 04:30 Ionized Calcium 1.15 mmol/L (1.15-1.33) 04/14/21 04:30 Respiration Rate 14 b/min 04/12/21 05:12 O2 Delivery Device VENTILATOR 04/12/21 05:12 Vent Mode ASSIST/CONTROL 04/12/21 05:12 FiO2 40.00 04/12/21 05:12 Tidal Volume 430 mL 04/12/21 05:12 PEEP 5 cmH2O 04/12/21 05:12 Sodium 143 mmol/L (135-145) 04/14/21 04:30 Potassium 4.2 mmol/L (3.5-5.0) 04/14/21 04:30 Chloride 100 mmol/L (101-111) L 04/14/21 04:30 Carbon Dioxide 30 mmol/L (21-32) 04/14/21 04:30 Anion Gap 13.0 (6-13) 04/14/21 04:30 BUN 46 mg/dL (6-20) H 04/14/21 04:30 Creatinine 0.9 mg/dL (0.4-1.0) 04/14/21 04:30 Estimated GFR (MDRD) 60 (>89) L 04/14/21 04:30 Glucose 126 mg/dL (70-100) H 04/14/21 04:30 POC Whole Bld Glucose 169 mg/dL (70 - 100) H 04/14/21 11:33 Calcium 9.1 mg/dL (8.5-10.3) 04/14/21 04:30 Phosphorus 5.0 mg/dL (2.5-4.6) H 04/14/21 04:30 Magnesium 2.3 mg/dL (1.7-2.8) 04/14/21 04:30 Total Bilirubin 0.8 mg/dL (0.2-1.0) 04/10/21 23:51 AST 14 IU/L (10-42) 04/10/21 23:51 ALT 15 IU/L (10-60) 04/10/21 23:51 Alkaline Phosphatase 75 IU/L (42-121) 04/10/21 23:51 Troponin I High Sens 12.7 ng/L (2.3-14.8) 04/11/21 09:10 B-Natriuretic Peptide 218 pg/mL (5-100) H 04/14/21 04:30 Total Protein 7.3 g/dL (6.7-8.2) 04/10/21 23:51 Albumin 3.8 g/dL (3.2-5.5) 04/10/21 23:51 Globulin 3.5 g/dL (2.1-4.2) 04/10/21 23:51 Albumin/Globulin Ratio 1.1 (1.0-2.2) 04/10/21 23:51 Lipase 25 U/L (22-51) 04/10/21 23:51 TSH 1.29 uIU/mL (0.34-5.60) 04/12/21 07:14 Nasal Adenovirus (PCR) NOT DETECTED 04/11/21 00:08 Nasal B. parapertussis DNA (PCR) NOT DETECTED 04/11/21 00:08 Nasal Coronavir 229E PCR NOT DETECTED 04/11/21 00:08 Nasal Coronavir HKU1 PCR NOT DETECTED 04/11/21 00:08 Nasal Coronavir NL63 PCR NOT DETECTED 04/11/21 00:08 Nasal Coronavir OC43 PCR NOT DETECTED 04/11/21 00:08 Nasal Enterovir/Rhinovir PCR NOT DETECTED 04/11/21 00:08 Nasal Influenza B PCR NOT DETECTED 04/11/21 00:08 Nasal Influenza A PCR NOT DETECTED 04/11/21 00:08 Nasal Parainfluen 1 PCR NOT DETECTED 04/11/21 00:08 Nasal Parainfluen 2 PCR NOT DETECTED 04/11/21 00:08 Nasal Parainfluen 3 PCR NOT DETECTED 04/11/21 00:08 Nasal Parainfluen 4 PCR NOT DETECTED 04/11/21 00:08 Nasal RSV (PCR) NOT DETECTED 04/11/21 00:08 Nasal Screen MRSA (PCR) NEGATIVE (NEGATIVE) 04/11/21 15:54 Nasal B.pertussis DNA PCR NOT DETECTED 04/11/21 00:08 Nasal C.pneumoniae (PCR) NOT DETECTED 04/11/21 00:08 Roger Human Metapneumo PCR NOT DETECTED 04/11/21 00:08 Nasal M.pneumoniae (PCR) NOT DETECTED 04/11/21 00:08 Nasal SARS-CoV-2 (PCR) NOT DETECTED 04/11/21 00:08 - Procedures Procedures: Procedures ENDOSC POLYPECTOMY OF LG INTEST (11/30/14) EXCISION OF STOMACH, ENDO, DIAGN (07/09/16)
--- NOTE | 2021-04-14 19:59 | PROVIDER PROGRESS NOTE ---
Progress Note Assessment and plan: Severe hypercapnic and hypoxic respiratory failure/ acute on chronic, s/p intubation and mechanical ventilation, extubated on April 13. Severe CO2 retention/Respiratory acidosis Etiology multifactorial: secondary to obstructive sleep apnea/obesity hypoventilation/possible COPD/chr. bronchitis. -Ruled out for acute coronary syndrome with negative serial troponins -Cor pulmonale/diastolic dysfunction might contribute had elevated BNP in the 400 range -Noncompliance with home CPAP -Not likely pulmonary embolism considering the clinical scenario -No pneumonia or septic physiology Plan: -Start nocturnal CPAP per RT, notably the patient has home CPAP however she was noncompliant -Discussed importance of compliance with the patient and encouraged her to work with RT to adjust CPAP setting to comfortable/tolerable -Continue bronchodilator -Discontinue IV steroid and switch to oral prednisone/continue proton pump inhibitor orally for GI prophylaxis Volume status/hypervolemia/Lower extremity edema /more than 2 L positive in the past 24 hours -Received IV hydration in the setting of critical illness -Likely developing hypoalbuminemia with low oral intake and critical illness which could contribute to third spacing -Probable CHF secondary to LVH/diastolic dysfunction and right-sided failure/cor pulmonale Plan: -Discontinue IV hydration -Restart Lasix tomorrow morning -Expect increasing oral intake to improve nutritional situation Decompensated CHF acute on chronic was present on admission evidenced by elevated BNP (was 400 on admission, decreased to 200 which is likely close to baseline) cor pulmonale/LVH/diastolic dysfunction, last echocardiogram during this admission Plan: -Continue metoprolol -Restart Lasix -Continue monitoring volume status -Might benefit from ARB Uncontrolled hypertension with blood pressure in the 160/90 range Plan: -Continue metoprolol -Discontinue IV hydration -Restart Lasix in the morning -Continue as needed hydralazine -Might benefit from ARB on fpc Deconditioning secondary to critical illness -Recovering and improving with strength, however not yet close to baseline -Prior to admission patient was fully functional, driving, ambulating without assistance, living independently, therefore she has good chances to improve back to baseline -Benefit from home health or rehabilitation Plan: -PT/OT -Social work, case management consult -Consider home health /outpatient PT or inpatient rehabilitation History of impaired glucose tolerance -Good glycemic control during this admission Plan: -Carb controlled diet -No need for blood glucose checks or insulin coverage Additional orders -No need for daily labs -Advance diet to carb controlled as tolerated -Blood glucose remained below 200, did not require insulin sliding scale therefore will discontinue blood glucose checks and sliding scale for patient's comfort -Discussed daily plan, current work-up and diagnoses, compliance issues and discharge plan with patient Subjective/Interval history: 86-year-old female admitted with severe CO2 retention and respiratory failure, was intubated mechanically ventilated, had improving clinical course and was extubated yesterday. Transferred to the medical floor and has been gradually improving. When I visited her today she complained of lower extremity swelling and weakness. Prior to admission she was ambulatory and lived independently. Recovering from current illness she has difficulty ambulating, requires a walker and feels weak "all over". She reports having increasing appetite and tolerating her diet. She denies chest pain, shortness of breath. She reports her respiratory status is improving and she feels almost back to her baseline. She only gets short of breath when she ambulates, at rest she feels comfortable with breathing. She reports having CPAP at home however she was unable to use it as she felt "suffocated" and the settings were not comfortable. Objective: Exam: General: Patient is a well-developed elderly female sitting in a chair watching TV and talking on the phone during my visit, she appears comfortable without distress CVS: S1, S2, regular, notable peripheral edema/thick neck Lymph: 2+ pitting edema up to the knees bilaterally symmetric Respiratory: Requiring 1 L supplemental oxygen, maintaining oxygen saturation in the mid 90s, no increased work of breathing, clear lungs bilaterally without wheezes or crackles Psych: Appropriate mood and affect Neuro: Alert, oriented, nonfocal Intake and Output 04/11/21 04/12/21 04/13/21 04/14/21 23:59 23:59 23:59 23:59 Intake Total 797.693 0484.436 9458.113 7294.882 Output Total 565 1130 1114 943 Balance -212.522 958.436 257.151 5025.882 Intake: Intake, IV Amount 741.148 0244.436 1727.584 9942. Calcium Gluconate 1,000 60 mg In Sodium Chloride 0.9 % 50 ml @ 50 mls/hr IV ONCE ONE Rx#:[id number] Lactated Ringers 1,000 ml 2941.830 5898.338 1988.882 @ 83.333 mls/hr IV .Q12H ALICIA Rx#:[id number] Midazolam Drip 50 mg In 19.082 100.969 11.05 100 ml @ 0.04 MG/KG/HR 7. 802 mls/hr IV .[id number] ALICIA Rx#:[id number] Propofol 500 mg/50 ml 500 213.396 mg In 50 ml @ 5 MCG/KG/ MIN 2.926 mls/hr IV . Q17H6M ALICIA Rx#:[id number] Oral 260 1180 Intake, Free Water 100 Other 120 210 60 Oral 120 210 60 Output: Gastric Drainage 350 175 Urine 565 780 939 943 Other: % Meal consumed 100% 100% Vital Signs 04/14/21 04/14/21 14:50 16:11 Temperature 36.7 C Heart Rate [ 76 69 Monitoring electrodes] Respiratory 22 20 Rate Blood Pressure 163/63 H 161/77 H [Left Brachial artery] O2 Saturation 97 96 Laboratory Results - last 24 hr 04/14/21 04/14/21 04/14/21 00:24 04:30 04:30 WBC 10.4 RBC 5.88 H Hgb 15.4 Hct 54.3 H MCV 92.3 MCH 26.2 L MCHC 28.4 L RDW 17.6 H Plt Count 188 MPV 10.7 Neut # (Auto) 9.3 H Lymph # (Auto) 0.7 L [place] # (Auto) 0.3 Eos # (Auto) 0.0 Baso # (Auto) 0.0 Absolute Nucleated RBC 0.00 Nucleated RBC % 0.0 VBG pH Ionized Calcium Sodium 143 Potassium 4.2 Chloride 100 L Carbon Dioxide 30 Anion Gap 13.0 BUN 46 H Creatinine 0.9 Estimated GFR (MDRD) 60 L Glucose 126 H POC Whole Bld Glucose 141 H Calcium 9.1 Phosphorus 5.0 H Magnesium 2.3 B-Natriuretic Peptide 04/14/21 04/14/21 04/14/21 04:30 04:30 07:42 WBC RBC Hgb Hct MCV MCH MCHC RDW Plt Count MPV Neut # (Auto) Lymph # (Auto) [place] # (Auto) Eos # (Auto) Baso # (Auto) Absolute Nucleated RBC Nucleated RBC % VBG pH 7.341 Ionized Calcium 1.15 Sodium Potassium Chloride Carbon Dioxide Anion Gap BUN Creatinine Estimated GFR (MDRD) Glucose POC Whole Bld Glucose 120 H Calcium Phosphorus Magnesium B-Natriuretic Peptide 218 H 04/14/21 04/14/21 11:33 16:24 WBC RBC Hgb Hct MCV MCH MCHC RDW Plt Count MPV Neut # (Auto) Lymph # (Auto) [place] # (Auto) Eos # (Auto) Baso # (Auto) Absolute Nucleated RBC Nucleated RBC % VBG pH Ionized Calcium Sodium Potassium Chloride Carbon Dioxide Anion Gap BUN Creatinine Estimated GFR (MDRD) Glucose POC Whole Bld Glucose 169 H 141 H Calcium Phosphorus Magnesium B-Natriuretic Peptide Level 3 follow-up Time: 40 minutes spent with patient's care, writing orders and coordination of her care discussing compliance issues and management issues with patient
[2021-04-14] MEDS: DOCUSATE SODIUM 250 MG CAPSULE PO SCH (21:13)
[2021-04-14] MEDS: SENNA 8.6 MG TABLET PO SCH (21:13)
[2021-04-14] MEDS: ALBUTEROL NEB 2.5 MG/3 ML INH SCH (21:30)
[2021-04-14] MEDS: BENZOCAINE/MENTHOL LOZENGE MM PRN (22:14)
[2021-04-15] MEDS: SODIUM CHLORIDE FLUSH 0.9% 10 ML SYRINGE IVP SCH ×3 (01:07→16:54)
[2021-04-15] MEDS: BENZOCAINE/MENTHOL LOZENGE MM PRN ×2 (01:07→09:51)
[2021-04-15] MEDS: SODIUM CHLORIDE FLUSH 0.9% 10 ML SYRINGE IVP PRN (01:07)
[2021-04-15] MEDS: PANTOPRAZOLE 40 MG TABLET PO SCH (06:33)
[2021-04-15] MEDS: LEVOTHYROXINE 112 MCG TABLET PO SCH (06:33)
[2021-04-15] MEDS: LEVOTHYROXINE 25 MCG TABLET PO SCH (06:33)
[2021-04-15] MEDS: ALBUTEROL NEB 2.5 MG/3 ML INH SCH ×2 (07:15→21:38)
[2021-04-15] MEDS ORDERED: FUROSEMIDE 40 MG TABLET PO SCH (08:00)
[2021-04-15] MEDS ORDERED: METOPROLOL SUCCINATE 200 MG PO SCH (09:00)
[2021-04-15] MEDS: predniSONE 20 MG TABLET PO SCH (09:48)
[2021-04-15] MEDS: allopurinoL 100 MG TABLET PO SCH (09:49)
[2021-04-15] MEDS: DOCUSATE SODIUM 250 MG CAPSULE PO SCH (09:49)
[2021-04-15] MEDS: SENNA 8.6 MG TABLET PO SCH (09:49)
[2021-04-15] MEDS: CHOLECALCIFEROL 25 MCG TABLET PO SCH (09:49)
[2021-04-15] MEDS: METOPROLOL SUCCINATE 50 MG TABLET PO SCH (09:50)
[2021-04-15 10:45] LABS: BASOPHILS % (AUTO) 0.2 %; HGB - HEMOGLOBIN 15.3 g/dL (12.0-16.0); LYMPHOCYTES # (AUTO) 1.3 10^3/uL (1.5-3.5); MEAN CORPUSCULAR HEMOGLOBIN 26.6 pg (27.0-31.0); MEAN CORPUSCULAR HGB CONC 28.3 g/dL (32.0-36.0); MEAN CORPUSCULAR VOLUME 93.8 fL (81.0-99.0); MEAN PLATELET VOLUME 10.4 fL (7.9-10.8); MONOCYTES % (AUTO) 9.7 %; NEUTROPHILS # (AUTO) 7.6 10^3/uL (1.5-6.6); NEUTROPHILS % (AUTO) 76.6 %; PLT - PLATELET COUNT 149 10^3/uL (130-450); RED BLOOD COUNT 5.76 10^6/uL (4.20-5.40); WHITE BLOOD COUNT 9.9 x10^3/uL (4.8-10.8)
[2021-04-15 10:54] LABS: CREATININE 1.1 mg/dL (0.4-1.0); POTASSIUM 4.9 mmol/L (3.5-5.0)
[2021-04-15] MEDS ORDERED: LACTULOSE 10 GM /15 ML UDC PO ONE (17:02)
--- NOTE | 2021-04-15 23:04 | PROVIDER PROGRESS NOTE ---
Progress Note Chief complaint/reason for follow-up: Respiratory failure Assessment and plan: Active problems/Daily CARE plan: Patient stabilized and is ready to get discharged to home with home health or to extended care facility for rehabilitation. During the past 24 hours she has been hemodynamically stable. Still deconditioned, recovering from critical illness, therefore will need ongoing PT, OT. Due to advanced age and multiple medical problems she is expected to have slow recovery. The following pending issues should be addressed for disposition: -Still with positive volume balance however overall hemodynamically stable, improving with the start of Lasix and discontinued IV hydration, will continue current care -Patient will need a CPAP/Nocturnally -Check room air oxygen saturation at rest and when ambulates, provide home oxygen if needed -PT /OT should be done as outpatient from home or per home health or patient should discharge to a facility -The above issues were discussed with the patient, she stated that her daughter is working with case management to address the above and to formulate a discharge plan. The patient prefers to discharge home rather than discharge to a facility. Hospital problems/assessment and plan/diagnoses/active issues treated and addressed during this hospital stay Severe hypercapnic and hypoxic respiratory failure/ acute on chronic, s/p intubation and mechanical ventilation, extubated on April 13. Severe CO2 retention/Respiratory acidosis Etiology multifactorial: secondary to obstructive sleep apnea/obesity hypoventilation/possible COPD/chr. bronchitis. -Ruled out for acute coronary syndrome with negative serial troponins -Cor pulmonale/diastolic dysfunction might contribute had elevated BNP in the 400 range -Noncompliance with home CPAP -Not likely pulmonary embolism considering the clinical scenario -No pneumonia or septic physiology Plan: -Nocturnal CPAP use is important as EMMANUEL/Obesity hypoventilation played largely a apart in CO2 retention and respiratory failure therefore to prevent development of respiratory failure it would be important to have CPAP available for the patient and titrate it to a tolerable setting. Patient's home CPAP is not available/not functional. -Continue bronchodilator -Continue oral prednisone/continue proton pump inhibitor for GI prophylaxis -Home O2 evaluation prior to discharge Volume status/hypervolemia/Lower extremity edema /improving, but still 1 L p ositive in the past 24 hours -Received IV hydration in the setting of critical illness -Likely developing hypoalbuminemia with low oral intake and critical illness which could contribute to third spacing -CHF secondary to LVH/diastolic dysfunction and right-sided failure/cor pulmonale Plan: -Discontinued IV hydration yesterday -Restarted Lasix this morning -Expect increasing oral intake to improve nutritional situation Decompensated CHF acute on chronic was present on admission evidenced by elevated BNP (was 400 on admission, decreased to 200 which is likely close to baseline) cor pulmonale/LVH/diastolic dysfunction, last echocardiogram during this admission Plan: -Continue metoprolol and Lasix -Continue monitoring volume status -Might benefit from ARB Uncontrolled hypertension with blood pressure in the 160/90 range yesterday, improved after discontinuing IV hydration and restarting Lasix Plan: -Continue metoprolol -Continue Lasix -Continue as needed hydralazine -Might benefit from ARB on intermediate, however blood pressure is with decreasing trend therefore no additional medication started Deconditioning secondary to critical illness -Recovering and improving with strength, however not yet at baseline -Prior to admission patient was fully functional, driving, ambulating without assistance, living independently, therefore she has good chances to improve back to baseline -Would benefit from home health or rehabilitation Plan: -PT/OT -Social work, case management consult -Consider home health /outpatient PT or inpatient rehabilitation History of impaired glucose tolerance -Good glycemic control during this admission Plan: -Carb controlled diet -No need for blood glucose checks or insulin coverage Additional orders -No need for daily labs -Carb controlled diet -Blood glucose remained below 200, did not require insulin sliding scale therefore will discontinue blood glucose checks and sliding scale for patient's comfort Subjective/Interval history: 86-year-old female admitted with severe CO2 retention and respiratory failure, was intubated mechanically ventilated, had improving clinical course and was extubated 04/13. Transferred to the medical floor and has been gradually improving. During my visit with her yesterday she complained of lower extremity swelling, appeared volume overloaded and was more than 2 L positive. Therefore IV hydration was stopped and Lasix was started. Additional problem in the past 2 days had been deconditioning and slow recovery of strength. In addition there were some logistics regarding CPAP use, reviewing the daily notes patient's home CPAP is recalled and nonfunctional and currently she does not have a CPAP available to use when she is discharged from the hospital. The only pending issue is discharge planning, to determine patient's discharge needs and whether she would need outpatient PT OT or rehab placement. During my visit with the patient today she discussed these issues and told me that her daughter is assisting case management to formulate a plan. Overall, the patient felt improving with strength, she had good appetite, she ambulated using a walker and felt optimistic with her progress. Objective: Last Vital Signs Temp 36.4 C L 04/15/21 23:47 Pulse 81 04/15/21 23:47 Resp 20 04/15/21 23:47 BP 99/36 L 04/15/21 23:47 Pulse Ox 95 04/15/21 23:47 Exam: General: Patient is a well-developed elderly female, appears comfortable without distress CVS: S1, S2, regular Lymph: 1+ pitting edema up to the knees bilaterally symmetric Respiratory: Requiring 1 L supplemental oxygen, maintaining oxygen saturation in the mid 90s, no increased work of breathing, clear lungs bilaterally without wheezes or crackles Psych: Appropriate mood and affect Neuro: Alert, oriented, nonfocal Intake & Output 04/13/21 04/14/21 04/15/21 04/16/21 23:59 23:59 23:59 23:59 Intake Total 4307.702 1395.882 1060 Output Total 1114 943 100 Balance 432.328 9909.882 960 Reviewed diagnostic work-up, chart notes, laboratories. Level 1 follow-up Time: 15 minutes spent with patient's care.
[2021-04-16] MEDS: BENZOCAINE/MENTHOL LOZENGE MM PRN (00:06)
[2021-04-16] MEDS: SODIUM CHLORIDE FLUSH 0.9% 10 ML SYRINGE IVP SCH ×2 (00:06→08:42)
[2021-04-16] MEDS ORDERED: guaiFENesin/DEXTROMETHORPHAN 10 ML UDC PO PRN (03:30)
[2021-04-16] MEDS: LEVOTHYROXINE 25 MCG TABLET PO SCH (05:23)
[2021-04-16] MEDS: PANTOPRAZOLE 40 MG TABLET PO SCH (05:23)
[2021-04-16] MEDS: LEVOTHYROXINE 112 MCG TABLET PO SCH (05:23)
[2021-04-16] MEDS: SENNA 8.6 MG TABLET PO SCH (08:38)
[2021-04-16] MEDS: DOCUSATE SODIUM 250 MG CAPSULE PO SCH (08:39)
[2021-04-16] MEDS: CHOLECALCIFEROL 25 MCG TABLET PO SCH (08:39)
[2021-04-16] MEDS: predniSONE 20 MG TABLET PO SCH (08:39)
[2021-04-16] MEDS: METOPROLOL SUCCINATE 50 MG TABLET PO SCH (08:39)
[2021-04-16] MEDS: allopurinoL 100 MG TABLET PO SCH (08:40)
[2021-04-16 09:21] LABS: BASOPHILS % (AUTO) 0.2 %; EOSINOPHILS # (AUTO) 0.1 10^3/uL (0.0-0.7); EOSINOPHILS % (AUTO) 0.6 %; HCT - HEMATOCRIT 54.7 % (37.0-47.0); HGB - HEMOGLOBIN 15.3 g/dL (12.0-16.0); LYMPHOCYTES # (AUTO) 3.1 10^3/uL (1.5-3.5); LYMPHOCYTES % (AUTO) 25.3 %; MEAN CORPUSCULAR HEMOGLOBIN 26.2 pg (27.0-31.0); MEAN CORPUSCULAR VOLUME 93.5 fL (81.0-99.0); MEAN PLATELET VOLUME 10.1 fL (7.9-10.8); MONOCYTES % (AUTO) 7.9 %; NEUTROPHILS % (AUTO) 65.3 %; PLT - PLATELET COUNT 142 10^3/uL (130-450); RED BLOOD COUNT 5.85 10^6/uL (4.20-5.40); RED CELL DISTRIBUTION WIDTH 15.9 % (12.0-15.0); WHITE BLOOD COUNT 12.2 x10^3/uL (4.8-10.8)
[2021-04-16 09:28] LABS: CALCIUM 8.9 mg/dL (8.5-10.3); CREATININE 1.1 mg/dL (0.4-1.0); POTASSIUM 3.5 mmol/L (3.5-5.0)
[2021-04-16] MEDS: ALBUTEROL NEB 2.5 MG/3 ML INH SCH (09:40)
--- NOTE | 2021-04-16 13:38 | Discharge Plan ---
Discharge Plan Problem Reviewed?: Yes Disposition: Home Health Service Condition: Stable Prescriptions: Albuterol Sulf [Ventolin Hfa Inhaler] 1 puffs INH Q4HR PRN #18 gm PRN Reason: Shortness Of Air/Wheezing Ipratropium [Atrovent] 1 puffs INH Q6H PRN #12.9 gm PRN Reason: Shortness Of Air/Wheezing predniSONE [Deltasone] 10 mg PO DAILY #4 tablet Metoprolol Succinate [Toprol Xl] 50 mg PO DAILY #30 tablet Diet: Regular Activity Restrictions: Activity as Tolerated Shower Restrictions: No (fall precaution) Instruction Topics: Prednisone tablets, COPD, Albuterol inhalation aerosol, Ipratropium aerosol inhaler Health Concerns: respiratory arrest, home oxygen usage Plan of Treatment: you were found respiratory arrest in hospital at the admission. You are Gradually improved. Now you are Hemodynamically stable. You may continue to use CPAP. You may followup with vacation pl[facility] as out-pt. You are prescribed short period of Steroid. You are prescribed albuterol and ipratropin inhaler PRN. You may followup with pulmonary rehab. RT assessed you for home oxygen usage. You are prescribed home oxygen. you may follow up RT instruction safely use home oxygen. Home Health PT is arranged for you as well. Your home Metoprolol dosage is reduced to 50 mg daily. Care Goals: Stabilization and improvement of your medical conditions Assessment: Discussed the care plan with you, you understood. Additional Instructions or Follow Up instructions: You may follow-up with your PCP in 1 to 2 weeks, follow-up with vacation [facility] as outpatient. Should your symptoms return or worsen, you may present to ER or call 911 for help. Follow-Up Care: [facility] - Pulmonary, Home Health - PT No Smoking: If you smoke, Please STOP! Call for help. Follow-up with: CORBIN VELASCO ARNP [Primary Care Provider] -
--- NOTE | 2021-04-16 13:51 | DISCHARGE SUMMARY ---
Discharge Summary Admit Date: 04/11/21 Discharge Date: 04/16/21 Discharging Provider: Martinez Jules Primary Care Provider: Natalia Jean Baptiste Condition at Discharge: Stable Discharge Disposition: Home Health Service Discharge Facility Name: home - DIAGNOSES Discharge Diagnoses with Status of Each Condition: (1) Respiratory arrest resolved. pt was incubated in ICU. After pt became stable, she was transferred to medical floor. Patient is hemodynamically stable, blood gas show normal pH (2) Acute on chronic respiratory failure with hypoxia and hypercapnia Patient is hemodynamically stable, resolved. (3) Exacerbation of asthma/COPD resolved at exacerbation phrase. Patient had 92% oxygen saturation at rest. But patient had 85% oxygen saturation when patient is in ambulation. Patient had 91% oxygen saturation on 1 L of oxygen at Ambulation. I am ordering 1 lpm of O2 with nasal cannula for patient's exertion. Patient may benefit from pulmonary rehab, patient may follow-up with sales and marketing professional as outpatient. Patient is prescript albuterol, apratropium PRN and short duration of steroid. (4)weakness Patient had PT and OT evaluation and treatment in hospital, patient is arranged home health PT (5)HTN stable. pt was given 50mg Metoprolol in the hospital. Patient is prescribed 50 mg metoprolol daily at d/c (6)hypothyroidism stable (7)sleep apnea pt is strongly advised to continue usage of her CPAP, follow-up with sales and marketing professional as outpatient to management of her sleep apnea. - HPI History of Present Illness: refer from Dr. Diaz's HPI on 04/11/21 86-year-old female who came to the emergency room because she has been having mo re more shortness of breath for the last 2 weeks. She has a history of asthma and has been using her inhaler more often but is not making any difference. She has increasing cough, increasing chest congestion, no fever or chills. She does not use oxygen at home. Her previous echocardiogram in 2019 shows left ventricular hypertrophy, no valvular heart disease, no diastolic heart failure and ejection fraction of 70%. Accompanying the shortness of breath has been increasing leg edema. The shortness of breath became so severe over the last 2 to 3 days that she came to the emergency room. She has a history of asthma all of her life. In 2007 and in 2008 she began having increasing fatigue, and was only able to walk half a flight of stairs before she had to stop and catch her breath. She underwent a stress test in 2008 which showed [address] segment depression in the inferior leads. This was after already having a stress test in that was without those ST changes. She was sent to the [facility] and was evaluated by Blue Nunn MD. A left heart cath was performed in January 2009 and she had normal coronary angiography. Normal left ventricular chamber size and mild concentric left ventricular hypertrophy with an overall normal ventricular systolic function and ejection fraction of 70%. Mildly elevated left heart pressures. Spirometry done at that same time had an FVC of 1.69 which was 65% of predicted. FEV1 of 1.48 which was 76 predicted. Her FEV1/ FVC ratio was 116%. She was felt to have a low vital capacity due to restrictive lung volumes most likely due to her severe obesity.Seen by Dr. Kaz Saavedra in November 2009 and repeat spirometry was unremarkable. No one has ever been able to really describe to her why she has been so short of breath. Asthma is not severe, and her heart is "normal". With her initial evaluation the vital signs were put in incorrectly. They initially stated 96% on room air. But they were correctly put in a few moments later and oxygen saturation was 65% on room air. She was tachypneic at 26. Hypertensive at 133/114. Pale, dusky skin color. The emergency room provider focused on lung source with asthma and gave her nebulizers. Decadron. An hour later she had improved but not by much and he was hearing crackles in addition to the wheezing so we gave her some Lasix. Not much urine output yet. Chest x-ray is read as without infiltrate but with increased vascularity. BUN and creatinine are stable for her at 32 and 1.1. Potassium is 5.1. White cell count is normal at 8.9. Hemoglobin 15. Dr. Obrien is asking for placement in observation to control COPD and evaluate for possible new congestive heart failure. As the patient was being wheeled in her gurney down the hallway to her room, the ER nurse that was transporting her noted that the patient had sudden lack of responsiveness. She was back to being dusky, cyanotic, pupils fixed but not dilated, and she was not moving her chest wall to breath. Immediate blood pressure showed her to have a blood pressure in the 150s over 70s, heart rate in the 70s, but not breathing. Bag mask was applied immediately. Rapid response called. Blood pressure and pulse are maintained at all times. No CPR needed. Emergency room physician came to intubate patient emergently. Her initial PCO2 is 126 with a pH of 7.14. PO2 is 111. CXR shows ET tube in place. - HOSPITAL COURSE Hospital Course: Patient was admitted for evaluation of shortness of breathing. when Patient was transferred to the medical floor, patient become respiratory arrest. Patient was intubated in the ICU. After treatment, patient become hemodynamic stable and transferred to the medical floor. Patient has history of asthma, sleep apnea but patient has no medication in his home medication list for asthma. Patient suddenly respiratory arrest might be caused by combination of Asthma/COPD exacerbation, obesity hypoventilation syndrome. Patient continue became hemodynamically stable in the medical floor, patient had PT/OT evaluation And treatment, home health PT is arranged for patient. - ALLERGIES Allergies/Adverse Reactions: Allergies Allergy/AdvReac Type Severity Reaction Status Date / Time codeine Allergy Severe Anaphylaxis Verified 04/10/21 23:29 - MEDICATIONS Home Medications: Ambulatory Orders Medication Instructions Recorded Confirmed allopurinoL [Allopurinol] 300 mg PO DAILY 11/30/14 04/12/21 Cholecalciferol (Vitamin D3) 2,000 units PO DAILY 12/17/16 04/12/21 [Vitamin D3] Potassium Chloride 20 meq PO DAILYWM 04/11/21 04/12/21 Furosemide [Lasix] 20 mg PO DAILY@1400 04/12/21 04/12/21 Furosemide [Lasix] 40 mg PO DAILY@0800 04/12/21 04/12/21 Levothyroxine Sodium 137 mcg PO QDAC 04/12/21 04/12/21 Omeprazole 40 mg PO BIDAC 04/12/21 04/12/21 Albuterol Sulf [Ventolin Hfa 1 puffs INH Q4HR PRN #18 gm 04/16/21 Inhaler] Ipratropium [Atrovent] 1 puffs INH Q6H PRN #12.9 gm 04/16/21 Metoprolol Succinate [Toprol Xl] 50 mg PO DAILY #30 tablet 04/16/21 predniSONE [Deltasone] 10 mg PO DAILY #4 tablet 04/16/21 - PHYSICAL EXAM AT DISCHARGE General Appearance: positive: No acute distress, Alert. negative: Lethargic Eyes Bilateral: positive: Normal inspection, PERRL, No lid inflammation ENT: positive: ENT inspection nml, No signs of dehydration. negative: Purulent nasal drainage, Pharyngeal erythema Neck: positive: Nml inspection, Trachea midline. negative: Thyromegaly, Tracheal deviation Respiratory: positive: Chest non-tender, No respiratory distress. negative: Wheezes, Rales Cardiovascular: positive: Regular rate & rhythm, No murmur. negative: Tachycardia, Bradycardia, Systolic murmur, Diastolic murmur Peripheral Pulses: positive: 2+ Abdomen: positive: Non-tender, Nml bowel sounds, No distention. negative: Tenderness Back: positive: Nml inspection Skin: positive: Color nml, Warm, Dry. negative: Cyanosis, Diaphoresis Extremities: positive: Non-tender, Full ROM. negative: Calf tenderness Neurologic/Psychiatric: positive: Oriented x3, Motor nml, Sensation nml, Mood/affect nml. negative: Weakness, Sensory loss, Facial droop, Slurred/abnml speech, Depressed mood/affect - LABS Result Diagrams: 04/16/21 09:14 04/16/21 09:14 - FOLLOW UP Follow Up: you were found respiratory arrest in hospital at the admission. You are Gradually improved. Now you are Hemodynamically stable. You may continue to use CPAP. You may followup with sales and marketing professional as out-pt. You are prescribed short period of Steroid. You are prescribed albuterol and ipratropin inhaler PRN. You may followup with pulmonary rehab. RT assessed you for home oxygen usage. You are prescribed home oxygen. you may follow up RT instruction safely use home oxygen. Home Health PT is arranged for you as well. Your home Metoprolol dosage is reduced to 50 mg daily. You may follow-up with your PCP in 1 to 2 weeks, follow-up with sales and marketing professional as outpatient. Should your symptoms return or worsen, you may present to ER or call 911 for help. - TIME SPENT Time Spent in Discharge (Minutes): 30
[2021-04-16 17:04] VITALS: BP 151/58
== END 2021-04-16 16:55 | disposition home health service (06) | DRG 189 ==
LOC: ED 23:01 → MS3 04-11 01:28 → ICU 04-11 02:42 → OBSVTOIN 04-11 04:26 → MS3 04-14 12:44
PROVIDERS: ADMIT Specialist; ATTEND Nurse Practitioner Gerontology
DX: J96.22 Acute and chronic respiratory failure with hypercapnia (principal); J44.1 Chronic obstructive pulmonary disease with (acute) exacerbation; I13.0 Hypertensive heart and chronic kidney disease with heart failure and stage 1 through stage 4 chronic kidney disease, or unspecified chronic kidney disease; J90 Pleural effusion, not elsewhere classified; R60.0 Localized edema; Z20.822 Contact with and (suspected) exposure to COVID-19; R09.02 Hypoxemia; G47.61 Periodic limb movement disorder; K21.9 Gastro-esophageal reflux disease without esophagitis; E66.2 Morbid (severe) obesity with alveolar hypoventilation; E87.2 Acidosis; J96.21 Acute and chronic respiratory failure with hypoxia; Z91.19 Patient's noncompliance with other medical treatment and regimen; I50.9 Heart failure, unspecified; R53.1 Weakness; E03.9 Hypothyroidism, unspecified; N18.31 Chronic kidney disease, stage 3a; Z68.38 Body mass index [BMI] 38.0-38.9, adult; E74.39 Other disorders of intestinal carbohydrate absorption; Z87.891 Personal history of nicotine dependence; Z98.61 Coronary angioplasty status; E87.70 Fluid overload, unspecified
CPT/HCPCS: 31500; 36415; 36600; 71045; 80048; 80053; 82310; 82330; 82803; 83690; 83735; 83880; 84100; 84132; 84443; 84484; 85025; 85379; 87150; 87631; 93005; 93306; 94002; 94003; 94640; 94761; 96374; 96375; 97116; 97161; 99285; 99291; A9270; G0378; J1815; J7040; J7120; J7512; 0202U; 94770

== ENCOUNTER 2021-04-26 14:26 | Outpatient (CLI) | payer MEDICARE, BC ==
--- NOTE | 2021-04-26 14:55 | SLEEP CARE CONSULTATION ---
Information from patient questionnaire entered by Yajaira Parson. I have reviewed and concur with the information entered by Yajaira Parson. This document represents the service I personally performed and the decisions made by me, Samina Gonzalez ARNP. History of Present Illness Service Date and Time: 04/26/2021 1420 Previous diagnosis: Severe, Obstructive Sleep Apnea-Hypopnea Syndrome AHI: 39.1 Reason for follow up: annual Accompanied by: Son Equipment type: CPAP (no using for almost 2 years) Mask style: Full face Prior sleep studies: Yes Year and Where: 01/2019 [facility] Type of Sleep Study: Polysomnography HPI additional information: SAMARIA CASAREZ was diagnosed to have severe, AHI 39.1, obstructive sleep apnea- hypopnea syndrome and returns via video Telehealth visit today with son for CPAP therapy annual follow-up. Patient has not been using her CPAP for at least 2 years. She did not use her device because she would feel claustrophobic with full face mask on and would remove it. She would also get tangled in her tubing. She has a Dreamstation that is on the recall. Subjective Initial Brock Sleepiness Scale score: 5 Allergies and Home Medications Home medication list reviewed: Yes (as updated in chart; new antibiotic) Review of Systems Review of systems same as previous: No (in hospital Hypoxia for 8 days) Physical Exam Vital signs obtained and entered by: Telehealth visit to reduce exposure during covid pandemic Height: 5 ft 3 in Impression and Plan 1. Obstructive Sleep Apnea-Hypopnea Syndrome, severe. Patient has not been using her device for at least 2 years. 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 Patient would like to restart CPAP therapy. She does have a DreamStation that is on the recall at this time that she got in 2019. Patient has already registered their device for the recall. Patient denies any black particles seen in machine or hoses, any unusual odors coming from device. Patient informed that they may use an inline CPAP filter that they can obtain online to reduce chance of any particles being inhaled or ingested. We discussed thoroughly the health risks of not using the CPAP versus continuing use with the filter in place. I will order home study to reevaluate and requalify her for CPAP therapy. We can try at that time to see if she can get a replacement device. Patient voiced understanding and agreement with plan. I also reviewed the benefit of consistent device use of CPAP for hypertension, diabetes, and gastric reflux. * Schedule polysomnography/HST. * Avoid alcohol, sedative and muscle relaxant around bedtime. * Review instructions provided by trained office staff on how to prepare for the sleep study. * Return for follow-up after sleep study completed. Visit Type: In Office Patient Location: [facility]home Location of Provider: Office Patient agrees and consents to this telehealth visit type: Yes Patient agrees to have their insurance billed: Yes Time Spent with Patient (minutes): 22 Provider Statement: I spent 100% of the Face to Face Visit with the patient with greater than 50% spent counseling the patient and coordination of care.
== END 2021-04-26 14:27 | disposition home or self-care (01) ==
LOC: SC 14:26
PROVIDERS: ATTEND Nurse Practitioner Family
DX: G47.33 Obstructive sleep apnea (adult) (pediatric) (principal)

== ENCOUNTER 2021-05-20 13:46 | Outpatient (CLI) | payer MEDICARE, BC | END 2021-05-20 13:47 | disposition home or self-care (01) | LOC: SC 13:46 | PROVIDERS: ATTEND Nurse Practitioner Family | DX: G47.33 Obstructive sleep apnea (adult) (pediatric) (principal); R09.02 Hypoxemia | CPT/HCPCS: G0399 ×2; 95806 ==

== ENCOUNTER 2021-06-04 16:42 | Outpatient (CLI) | payer MEDICARE, BC ==
--- NOTE | 2021-06-04 17:08 | SLEEP CARE CONSULTATION ---
Information from patient questionnaire entered by Jason Aj MA. I have reviewed and concur with the information entered by Jason Aj MA. This document represents the service I personally performed and the decisions made by , Samina Gonzalez ARNP. History of Present Illness Service Date and Time: 06/04/2021 1642 Initial [place] Sleepiness Scale score: 5 Current [place]riv[place] Sleepiness Scale score: 5 Additional HPI information: SAMARIA CASAREZ returns via video telehealth visit with son-in-law Waylon for follow up and results of the recently performed home sleep study. I explained the pathophysiology behind obstructive sleep apnea. We then spent quite a bit of time discussing different treatment options. For mild obstructive sleep apnea, surgery and oral appliance are alternatives to nasal CPAP therapy but in moderate or severe cases, nasal CPAP is the most effective and reliable treatment. I reviewed the impact of weight changes on sleep apnea and strongly recommended losing weight. After some discussion, the patient opted to go with the nasal CPAP therapy. Nasal autoCPAP set at 4-15 cmH20 will be ordered with rationale explained. A manual titration study will be ordered if unable to find optimal pressure with office adjustments. I explained how CPAP machine works and what to expect when using the machine. Using CPAP every night in order to get used to it was emphasized. Patient advised to put CPAP mask on before getting into bed so as not to fall asleep without CPAP. To assist acclimation to CPAP use, it could also be used for a short time during day while reading or watching TV. The patient was instructed to call the CPAP supplier to discuss any mechanical problem that may occur. If the mask given is uncomfortable or is difficult to keep on through the night even with adjustment, contact the CPAP supplier as many will replace with another mask style if notified before 30 days. If snoring or perceives is not getting enough air or too much air from the machine, notify this office. Patient does not drink alcohol. Patient was cautioned about risks of drowsy driving until sleepiness symptoms resolve. Sleep Study - Results Type of Sleep Study: Home sleep study Prior sleep studies: Yes Year and Where: 2020 [facility] Polysomnography/Home Sleep Study results: Physician Impression: The quality of the study is poor due to frequent airflow signal loss probably due to the patient wearing oxygen nasal cannula. The length of the study is adequate (> 240 minutes). Please also see the tabulated and graphic data. 1. Obstructive Sleep Apnea-Hypopnea (ICD-10 G47.33), mild, with an AHI of 5.5/hr and naseem SaO2 of 86%. During the study, the patient had 10 apneas (10 obstructive, 0 central, 0 mixed) and 13 hypopneas. The longest episode lasted 94.0 seconds. The respiratory events occurred more frequently during supine sleep (supine AHI was and non-supine, 5.53). 2. Hypoxemia (ICD-10 R09.02), mild, with the lowest oxygen saturation of 86 % and 116.6 minutes with SaO2 under 90%. Baseline oxygen saturation was low- normal (Average oxygen saturation was 90%). Allergies and Home Medications Home medication list reviewed: Yes (no changes) Review of Systems Review of systems same as previous: Yes (no changes) Physical Exam Vital signs obtained and entered by: Telehealth visit to reduce exposure during Covid pandemic Height: 5 ft 3 in Impression and Plan 1. Obstructive Sleep Apnea-Hypopnea Syndrome, mild, with lowest oxygen saturation of 86%. Obviously this is the cause of the patients symptoms of unrefreshed sleep, and excessive daytime sleepiness. Positive pressure therapy could benefit hypertension, diabetes and gastric reflux. As mentioned above, the patient will be started on nasal autoCPAP therapy with pressure set at 4-15 cmH2O. Compliance guidelines also reviewed. Patient has had a CPAP in the past but stopped using it. When she was recently in the hospital they recommended she start using her CPAP again. She has an old DreamStation and they told her it was on the recall and told her not to use it. We will send a prescription to try to get her a new device so that she might restart CPAP therapy. 2. Hypoxemia, mild, with the lowest oxygen saturation of 86 % and 116.6 minutes with SaO2 under 90%. Her baseline oxygen saturation was low-normal with an average oxygen saturation of 90%. * Nasal auto CPAP therapy, pressure at 4-15 cm H2O. * Attempt to lose weight. * Avoid supine sleep until using CPAP. * The patient is again cautioned about driving until sleepiness completely resolves. * Return one month after CPAP obtained. I will assess response to therapy and compliance at that time. Counseling Topics: Weight loss health impact Visit Type: Telehealth Video Video Type: VSee Patient Location: Home Location of Provider: Office Patient agrees and consents to this telehealth visit type: Yes Patient agrees to have their insurance billed: Yes Time Spent with Patient (minutes): 20 Provider Statement: I spent 100% of the Telehealth Video Call with the patient with greater than 50% spent counseling the patient and coordination of care.
== END 2021-06-04 16:43 | disposition home or self-care (01) ==
LOC: SC 16:42
PROVIDERS: ATTEND Nurse Practitioner Family
DX: G47.33 Obstructive sleep apnea (adult) (pediatric) (principal); R09.02 Hypoxemia

== ENCOUNTER 2021-07-29 13:00 | Outpatient (CLI) | payer MEDICARE, BC ==
[2021-07-29] MEDS ORDERED: ALBUTEROL 1 PUFF INH STA (16:06)
== END 2021-07-29 13:01 | disposition home or self-care (01) ==
LOC: RT 13:00
PROVIDERS: ATTEND Internal Medicine
DX: J96.11 Chronic respiratory failure with hypoxia (principal); I50.30 Unspecified diastolic (congestive) heart failure; G47.30 Sleep apnea, unspecified
CPT/HCPCS: 94060; 94729

== ENCOUNTER 2021-10-03 16:34 | Outpatient (CLI) | payer MEDICARE, BC ==
--- NOTE | 2021-10-04 08:20 | XRAY Report ---
PROCEDURE: Chest 3 View X-Ray INDICATIONS: CHRONIC OBSTRUCTIVE DISEASE TECHNIQUE: 2 view(s) of the chest. COMPARISON: April 12, 2021 FINDINGS: SUPPORT DEVICES: None. LUNGS/PLEURA: Reduced lung volumes. No focal consolidation, pleural effusion or space-occupying pneum othorax. MEDIASTINUM: The cardiomediastinal silhouette is within normal limits. BONES/SOFT TISSUES: No acute abnormality. Persistent mild elevation of the right diaphragm. IMPRESSION: 1.No acute cardiopulmonary abnormality. Reviewed by: Dave Mejia MD on 10/04/2021 8:19 AM [facility] Approved by: Dave Mejia MD on 10/04/2021 8:19 AM [facility] Station ID: [id number]
--- NOTE | 2021-10-04 13:22 | XRAY Report ---
PROCEDURE: Knee 3 View RT INDICATIONS: RIGHT KNEE PAIN TECHNIQUE: 4 views of the right knee(s) were acquired. COMPARISON: None. FINDINGS: Bones: No acute fractures or dislocations. No suspicious bony lesions. Tricompartmental degenerativ e changes of the right knee with medial femoral tibial compartment joint space narrowing. Soft tissues: Small joint effusion. No suspicious soft tissue calcifications. Chondrocalcinosis not ed over the lateral femorotibial compartment. IMPRESSION: Right knee without acute fracture or dislocation. Small joint effusion. Tricompartmental degenerative changes with medial compartment joint space narrowing. Chondrocalcinosis. Differential diagnosis includes but is not limited to hemochromatosis, hyperparath yroidism, and CPPD arthropathy. Reviewed by: Juan C Haywood MD on 10/04/2021 12:21 PM [facility] Approved by: Juan C Haywood MD on 10/04/2021 12:21 PM [facility] Station ID: [id number]
== END 2021-10-03 16:35 | disposition home or self-care (01) ==
LOC: DI.S 16:34
PROVIDERS: ATTEND Nurse Practitioner Family
DX: J44.9 Chronic obstructive pulmonary disease, unspecified (principal); M25.461 Effusion, right knee; M17.11 Unilateral primary osteoarthritis, right knee; M11.261 Other chondrocalcinosis, right knee

== ENCOUNTER 2021-10-11 15:47 | Outpatient (CLI) | payer MEDICARE, BC ==
[2021-10-11 20:09] LABS: BASOPHILS # (AUTO) 0.1 10^3/uL (0.0-0.1); BASOPHILS % (AUTO) 0.5 %; EOSINOPHILS # (AUTO) 0.3 10^3/uL (0.0-0.7); EOSINOPHILS % (AUTO) 2.4 %; HGB - HEMOGLOBIN 13.3 g/dL (12.0-16.0); LYMPHOCYTES # (AUTO) 3.5 10^3/uL (1.5-3.5); LYMPHOCYTES % (AUTO) 33.7 %; MEAN CORPUSCULAR HEMOGLOBIN 30.5 pg (27.0-31.0); MEAN CORPUSCULAR HGB CONC 31.7 g/dL (32.0-36.0); MEAN CORPUSCULAR VOLUME 96.3 fL (81.0-99.0); MEAN PLATELET VOLUME 10.8 fL (7.9-10.8); MONOCYTES # (AUTO) 0.8 10^3/uL (0.0-1.0); MONOCYTES % (AUTO) 7.5 %; NEUTROPHILS # (AUTO) 5.8 10^3/uL (1.5-6.6); NEUTROPHILS % (AUTO) 55.5 %; PLT - PLATELET COUNT 301 10^3/uL (130-450); RED BLOOD COUNT 4.36 10^6/uL (4.20-5.40); RED CELL DISTRIBUTION WIDTH 13.1 % (12.0-15.0); WHITE BLOOD COUNT 10.4 x10^3/uL (4.8-10.8)
[2021-10-11 20:40] LABS: THYROID STIMULATING HORMONE 3.91 uIU/mL (0.34-5.60)
[2021-10-11 21:23] LABS: % IRON SATURATION 15 % (20-50); IRON 54 ug/dL (28-170); TOTAL IRON BINDING CAPACITY 358 ug/dL (250-450); TRANSFERRIN 256 mg/dL (192-382)
== END 2021-10-11 15:48 | disposition home or self-care (01) ==
LOC: LAB.S 15:47
PROVIDERS: ATTEND Nurse Practitioner Family
DX: M11.261 Other chondrocalcinosis, right knee (principal); E03.9 Hypothyroidism, unspecified
CPT/HCPCS: 36415; 81256; 82728; 83540; 84443; 84466; 85025

== ENCOUNTER 2022-03-05 17:04 | Outpatient (CLI) | payer MEDICARE, BC ==
--- NOTE | 2022-03-05 17:11 | SLEEP CARE CONSULTATION ---
Information from patient questionnaire entered by Jason Sanchez MA. I have reviewed and concur with the information entered by Jason Sanchez MA. This document represents the service I personally performed and the decisions made by , Samina Gonzalez ARNP. History of Present Illness Service Date and Time: 03/05/2022 1620 Previous diagnosis: Severe, Obstructive Sleep Apnea-Hypopnea Syndrome AHI: 39.1 Reason for follow up: first compliance (RESFERNANDEZ STROUD 09/30/2021, ) Accompanied by: Son in law Equipment type: CPAP Equipment obtained from: [email or web address] (got initial supplies) Mask style: Nasal Mask brand: Resmed Backup mask available: No (will keep old mask when replaced) Prior sleep studies: Yes Year and Where: 2020 [facility] Type of Sleep Study: Home sleep study HPI additional information: SAMARIA CASAREZ was diagnosed to have severe, AHI 39.1, obstructive sleep apnea- hypopnea syndrome and returns via video telehealth visit today for CPAP therapy first compliance follow-up. Sleep Study - Results Type of Sleep Study: Home sleep study Prior sleep studies: Yes Year and Where: 2020 [facility] CPAP Compliance Data - Data Reviewed with Patient Average duration of nightly device use: 4 HOURS 42 MINUTES Compliance rate %: 53 (02/02/22-03/03/22) Current pressure setting (cmH2O): 4-15 (median 6.5, ) Average residual AHI: 3.1 Central apnea: .1 Obstructive apnea: 1.9 Hypopnea: .0 Average large leak: 10.6 Subjective Missed days of use due to: reports: other (too o) Patient concerns: reports: mask leak noise. denies: aerophagia, mask discomfort, air blowing in eyes, condensation in mask/hose, nasal congestion, dry mouth, nose, throat, epistaxis, other Observed to snore while using device: No Current pressure setting perceived as: comfortable On therapy, patient: reports: other. denies: drowsiness while driving Initial [place] Sleepiness Scale score: 5 Current [place] Sleepiness Scale score: 5 Allergies and Home Medications Home medication list reviewed: Yes (no changes) Allergy and home medication list: Allergies codeine Allergy (Severe, Verified 04/10/21 23:29) Anaphylaxis Review of Systems Review of systems same as previous: Yes (no changes) Physical Exam Vital signs obtained and entered by: Austin SANCHEZ CMA AAMA, PRE-TELEMED APPT. Height: 5 ft 3 in Weight: 215 lb (pt reported) Body Mass Index: 38.0 BMI Classification: Obese Impression and Plan 1. Obstructive Sleep Apnea-Hypopnea Syndrome, severe, with fair treatment compliance and good apnea control. Patient has not noticed a difference but she is only using her CPAP for just under 4 hours on average when she does use it. She used her CPAP 21/ days. Patient got a nasal cushion type mask and she states it will wake her up because it is leaking around the mask and she is not able to get it to seal again. She will just stop using it and go back to sleep at that point. She would like to try a fullface mask. I will write a prescription for a mask fitting for a full face mask. Patient has significant improvement of her sleep apnea when using her CPAP. She feels the pressure has been comfortable. The patients pressure will be changed to autoCPAP 10-13 cmH20 to reflect pressures being used. Patient advised to contact me if pressure change is uncomfortable so that it can be adjusted. Goals for apnea control discussed. Patient's apnea severity and rationale for treatment to reduce apnea, improve sleep quality and reduce cardiovascular and cerebrovascular events was reviewed. I also reviewed the benefit of consistent device use of CPAP for hypertension, diabetes and gastric reflux. 2. Obesity, unspecified. Currently patients BMI is 38.0. Obesity increases the risk of apnea, CPAP pressure requirements and overall health risks especially cardiovascular and diabetes. Thus patient is advised to lose weight. * mask refitting for full face mask * Change auto CPAP pressure to 10-13 cmH2O * Notify me if snoring with mask or feeling that the pressure is too much or too little * Attempt to lose weight * Call this office if any problems using CPAP * Return for follow up in 1-2 months, or sooner if concerns arise Counseling Topics: Spare mask, Weight loss health impact Visit Type: Telehealth Video ([phone]) Video Type: Doximity Patient Location: Home Other Participants: Other (Son in law Waylon) Location of Provider: Office Patient agrees and consents to this telehealth visit type: Yes Patient agrees to have their insurance billed: Yes Time Spent with Patient (minutes): 21 Provider Statement: I spent 100% of the Telehealth Video Call with the patient with greater than 50% spent counseling the patient and coordination of care.
== END 2022-03-05 17:05 | disposition home or self-care (01) ==
LOC: SC 17:04
PROVIDERS: ATTEND Nurse Practitioner Family
DX: G47.33 Obstructive sleep apnea (adult) (pediatric) (principal); E66.9 Obesity, unspecified; Z68.38 Body mass index [BMI] 38.0-38.9, adult

== ENCOUNTER 2022-05-07 17:05 | Outpatient (CLI) | payer MEDICARE, BC ==
--- NOTE | 2022-05-07 16:59 | SLEEP CARE CONSULTATION ---
Information from patient questionnaire entered by Gina Torres MA. I have reviewed and concur with the information entered by Gina Torres MA. This document represents the service I personally performed and the decisions made by , Samina Gonzalez ARNP. History of Present Illness Service Date and Time: 05/07/2022 1620 Previous diagnosis: Severe, Obstructive Sleep Apnea-Hypopnea Syndrome AHI: 39.1 Reason for follow up: other (2 month f/u) Equipment type: CPAP ([facility]Med) Equipment obtained from: [employer] (getting supplies) Mask style: Nasal Backup mask available: Yes (old mask) Last cushion change: recently Prior sleep studies: Yes Year and Where: 2020 [facility] Type of Sleep Study: Home sleep study HPI additional information: SAMARIA CASAREZ was diagnosed to have severe, AHI 39.1, obstructive sleep apnea- hypopnea syndrome and returns via video telehealth visit today for CPAP therapy 2 month follow-up. Sleep Study - Results Type of Sleep Study: Home sleep study Prior sleep studies: Yes Year and Where: 2020 [facility] CPAP Compliance Data - Data Reviewed with Patient Average duration of nightly device use: 4 hours 53 minutes Compliance rate %: 67 (/ days) Current pressure setting (cmH2O): 10-13 Average residual AHI: 2.3 Central apnea: 0.1 Obstructive apnea: 1,7 Subjective Patient concerns: reports: dry mouth, nose, throat (dry mouth, throat; not often). denies: aerophagia, mask discomfort, air blowing in eyes, mask leak amberly se, condensation in mask/hose, nasal congestion, epistaxis Observed to snore while using device: No Current pressure setting perceived as: comfortable On therapy, patient: reports: other (not really feeling different; she is taking less naps during the day). denies: drowsiness while driving (doesn't drive) Initial Bradley Sleepiness Scale score: 5 Current Bradley Sleepiness Scale score: 6 () Allergies and Home Medications Drug allergies reviewed: Yes (as listed) Home medication list reviewed: Yes (no changes) Allergy and home medication list: Allergies codeine Allergy (Severe, Verified 04/10/21 23:29) Anaphylaxis Review of Systems Review of systems same as previous: Yes (no changes) Physical Exam Vital signs obtained and entered by: NADEGE ESCALANTE (VIA PHONE) Height: 5 ft 3 in Weight: 215 lb (pt reported) Body Mass Index: 38.0 BMI Classification: Obese Impression and Plan 1. Obstructive Sleep Apnea-Hypopnea Syndrome, severe, with fair treatment compliance and good apnea control. On CPAP therapy, the patient has better sleep quality and is more rested overall. Patient has been able to bring her compliance up to 67% in the last 30 days. Patient states she is wearing it nightly and feels like she is wearing it for at least 7 hours at night. Her therapy report shows her up to 5 hours. Patient wants to continue using the n zain cushion mask because it gives her less anxiety for her claustrophobia and it is more comfortable than the fullface mask she was using before. No changes needed today for her pressure. Patient's apnea severity and rationale for treatment to reduce apnea, improve sleep quality and reduce cardiovascular and cerebrovascular events was reviewed. I also reviewed the benefit of consistent device use of CPAP for hypertension, diabetes and gastric reflux. 2. Obesity, unspecified. Currently patients BMI is 38.0. Obesity increases the risk of apnea, CPAP pressure requirements and overall health risks especially cardiovascular and diabetes. Thus patient is advised to lose weight. * Continue auto CPAP pressure at 10-13 cmH2O * Notify me if snoring with mask or feeling that the pressure is too much or too little * Attempt to lose weight * Call this office if any problems using CPAP * Return for follow up in 3 months, or sooner if concerns arise Counseling Topics: Spare mask, Weight loss health impact Visit Type: Telehealth Video Video Type: Branden Patient Location: Home Other Participants: Other (Son, Esteban) Location of Provider: Office Patient agrees and consents to this telehealth visit type: Yes Patient agrees to have their insurance billed: Yes Time Spent with Patient (minutes): 22 Provider Statement: I spent 100% of the Telehealth Video Call with the patient with greater than 50% spent counseling the patient and coordination of care.
== END 2022-05-07 17:06 | disposition home or self-care (01) ==
LOC: SC 17:05
PROVIDERS: ATTEND Nurse Practitioner Family
DX: G47.33 Obstructive sleep apnea (adult) (pediatric) (principal); E66.9 Obesity, unspecified; Z68.38 Body mass index [BMI] 38.0-38.9, adult

== ENCOUNTER 2023-02-09 14:52 | Outpatient (CLI) | payer MEDICARE, BC ==
--- NOTE | 2023-02-11 09:01 | Mammography Report ---
BILATERAL DIGITAL SCREENING MAMMOGRAM 3D/2D: 02/10/2023 CLINICAL: Routine screening. Family history of breast cancer. Comparisons: 07/05/2014, 10/19/2017, 06/28/2013 Both breasts are heterogeneously dense, which may obscure small masses (category c / 51-75% glandular tissue). No significant masses, calcifications, or other findings are seen in either breast. IMPRESSION: NEGATIVE There is no mammographic evidence of malignancy. A 1 year screening mammogram is recommended. This exam was interpreted at Station ID: [id number]. NOTE: For mammograms, a report in lay terms will be sent to the patient. Approximately 15% of breast malignancies will not be visualized mammographically. In the management of a palpable breast mass, a negative mammogram must not discourage biopsy of a clinically suspicious lesion. Electronically Signed By: Juan C Haywood M.D. aty/:02/10/2023 18:29:57 letter sent: No_Letter ACR BI-RADS Category 1: Negative 3341F PARENCHYMAL PATTERN: (D) - The breast(s) demonstrate(s) heterogeneously dense fibroglandular radames mendiola. BI-RADS CATEGORY: (1) - 1 Mammogram [id number] 1 year screening LATERALITY: (B)
== END 2023-02-09 14:53 | disposition home or self-care (01) ==
LOC: DI.S 14:52
PROVIDERS: ATTEND Nurse Practitioner Family
DX: Z12.31 Encounter for screening mammogram for malignant neoplasm of breast (principal); Z80.3 Family history of malignant neoplasm of breast

== ENCOUNTER 2023-04-08 15:47 | Outpatient (CLI) | payer MEDICARE, BC ==
--- NOTE | 2023-04-08 16:31 | XRAY Report ---
PROCEDURE: Thoracic Spine 2 View INDICATIONS: PAIN IN THORACIC SPINE TECHNIQUE: 3 views of the thoracic spine were acquired. COMPARISON: None. FINDINGS: Bones: No fractures or dislocations. No suspicious bony lesions. 12 pairs of ribs are noted, and a ppear intact where visualized. Mild dextrocurvature of the thoracic spine. Multilevel degenerative c hanges with intervertebral disc height loss, degenerative endplate changes and spurring. Diffusely de creased osseous mineralization. Soft tissues: No paravertebral stripe thickening. IMPRESSION: Multilevel degenerative changes of the thoracic spine. No vertebral body compression deformities. Reviewed by: Krzysztof Bernal MD on 04/08/2023 4:30 PM PDT Approved by: Krzysztof Bernal MD on 04/08/2023 4:30 PM PDT Station ID: [id number]
== END 2023-04-08 15:48 | disposition home or self-care (01) ==
LOC: DI.S 15:47
PROVIDERS: ATTEND Registered Nurse
DX: M47.814 Spondylosis without myelopathy or radiculopathy, thoracic region (principal)

== ENCOUNTER 2023-04-15 16:07 | Inpatient (IN) | payer MEDICARE, BC ==
[2023-04-15 16:55] LABS: BASOPHILS # (AUTO) 0.1 10^3/uL (0.0-0.1); BASOPHILS % (AUTO) 0.6 %; EOSINOPHILS # (AUTO) 0.3 10^3/uL (0.0-0.7); EOSINOPHILS % (AUTO) 2.9 %; HGB - HEMOGLOBIN 12.1 g/dL (12.0-16.0); LYMPHOCYTES # (AUTO) 2.8 10^3/uL (1.5-3.5); LYMPHOCYTES % (AUTO) 31.2 %; MEAN CORPUSCULAR HEMOGLOBIN 29.4 pg (27.0-31.0); MEAN CORPUSCULAR HGB CONC 30.3 g/dL (32.0-36.0); MEAN CORPUSCULAR VOLUME 97.1 fL (81.0-99.0); MEAN PLATELET VOLUME 10.1 fL (7.9-10.8); MONOCYTES # (AUTO) 0.7 10^3/uL (0.0-1.0); MONOCYTES % (AUTO) 7.4 %; NEUTROPHILS # (AUTO) 5.2 10^3/uL (1.5-6.6); NEUTROPHILS % (AUTO) 57.6 %; PLT - PLATELET COUNT 254 10^3/uL (130-450); RED BLOOD COUNT 4.12 10^6/uL (4.20-5.40); RED CELL DISTRIBUTION WIDTH 13.6 % (12.0-15.0)
[2023-04-15 17:14] LABS: TROPONIN I HIGH SENSITIVITY 8.5 ng/L (2.3-14.8)
[2023-04-15 17:16] LABS: ALBUMIN 4.3 g/dL (3.2-5.5); ALBUMIN/GLOBULIN RATIO 1.7 (1.0-2.2); BILIRUBIN,TOTAL 0.5 mg/dL (0.2-1.0); CALCIUM 9.9 mg/dL (8.5-10.3); CREATININE 1.1 mg/dL (0.6-1.3); POTASSIUM 4.3 mmol/L (3.5-4.5); TOTAL PROTEIN 6.9 g/dL (6.4-8.9)
--- NOTE | 2023-04-15 18:19 | ED Physician Documentation ---
PD HPI FOCAL NEURO - Stated complaint Stated Complaint: L SIDE TINGLING, UNABLE TO STAND - Chief complaint Chief Complaint: Neuro - History obtained from History obtained from: Patient - Additional information Additional information: 88-year-old woman with history of oxygen dependent COPD, stage IV CKD, hypothyroidism presents with numbness of the left side, arm, face, and leg going on for about 2 weeks with more recent bilateral extremity weakness. She is still able to walk albeit very slowly and with a walker which is not her baseline. She feels like she is dropping things with either hand. She denies headache or head injury with this. 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: None : Incontinence, Renal insuffiency, Kidney stones HEENT: None Psych: None Musculoskeletal: Osteopenia, Gout, Chronic back pain, Other Derm: Herpes zoster, Other - Past Surgical History Past Surgical History: Yes General: Colonoscopy, EGD /LOAN AUDITOR: Hysterectomy Cardiovascular: Cardiac catheterization HEENT: Cataracts - Present Medications Home Medications: Ambulatory Orders Medication Instructions Recorded Confirmed allopurinoL [Allopurinol] 300 mg PO DAILY 11/30/14 04/15/23 Cholecalciferol (Vitamin D3) 1,000 units PO DAILY 12/17/16 04/15/23 [Vitamin D3] Potassium Chloride 20 meq PO DAILYWM 04/11/21 04/15/23 Furosemide [Lasix] 40 mg PO DAILY@0800 04/12/21 04/15/23 Levothyroxine Sodium 137 mcg PO QDAC 04/12/21 04/15/23 Omeprazole 40 mg PO BIDAC 04/12/21 04/15/23 Ipratropium [Atrovent] 1 puffs INH Q6H PRN #12.9 gm 04/16/21 04/15/23 Metoprolol Succinate [Toprol Xl] 50 mg PO DAILY #30 tablet 04/16/21 04/15/23 Magnesium Oxide [Magnesium] 500 mg PO DAILY 04/15/23 04/15/23 - Allergies Allergies/Adverse Reactions: Allergies Allergy/AdvReac Type Severity Reaction Status Date / Time codeine Allergy Severe Anaphylaxis Verified 04/15/23 16:18 morphine Allergy Intermediate Nausea Verified 04/15/23 16:18 - Social History Does the pt smoke?: No Smoking Status: Former smoker (quit 1991) Does the pt drink ETOH?: No Does the pt have substance abuse?: No - Family History Family history: reports: Non contributory - Immunizations Immunizations are current?: Yes - POLST Patient has POLST: No POLST Status: Full Code PD ED PE NORMAL - Vitals Vital signs reviewed: Yes - General General: Alert and oriented X 3, No acute distress - HEENT HEENT: PERRL, EOMI - Neck Neck: Supple, no meningeal sign, No bony TTP - Cardiac Cardiac: RRR, No murmur - Abdomen Abdomen: Non tender - Extremities Extremities: Other (3+ pitting pedal edema, symmetric, family stating chronic.) - Neuro Neuro: Alert and oriented X 3, Normal speech Eye Opening: Spontaneous Motor: Obeys Commands Verbal: Oriented GCS Score: 15 NIHSS - Time Time: 18:10 - Level of Consciousness Level of consciousness: (0) Alert, Keenly responsive LOC Questions: (0) Answers both Q's correct LOC Commands: (0) Performs both correctly - Gaze Best Gaze: (0) Normal - Visual Visual: (0) No loss - Facial Palsy Facial Palsy: (0) Normal, symmetrical movement - Motor Arms (both separate) Motor Arm (right): (0) No drift Motor Arm (left): (0) No drift - Motor Legs (both separate) Motor Leg (right): (0) No drift Motor Leg (left): (1) Drift - Limb Ataxia Limb Ataxia: (0) Absent - Sensory Sensory: (1) [id number] loss (Face arm and leg on the left, incomplete) - Best Language Best Language: (0) No aphasia - Dysarthria Dysarthria: (0) Normal - Extinction and Inattention (formally neg Extinction and inattention: (0) No abnormality - Total Score/Results Total Score/Result: 2 Results - Vitals Vitals: Vital Signs - 24 hr 04/15/23 04/15/23 04/15/23 16:13 18:39 20:00 Temperature 36.6 C Heart Rate 82 80 79 Respiratory 20 18 21 Rate Blood Pressure 157/89 H 161/71 H 168/73 H O2 Saturation 94 97 97 If not protocol 1.5 1.5 : Oxygen Flow, liters/minute Oxygen O2 Source Nasal cannula - EKG (time done) 1624 EKG releavant findings:: EKG personally interpreted by author of this note. Relevant findings are: Rate: Rate (enter#) (79) Rhythm: NSR [place]: Normal Intervals: Normal MD QRS: Normal Ischemia: Normal ST segments, Non specific changes. No: ST elevation c/w ischemia - Labs Labs: Laboratory Tests 04/15/23 04/15/23 04/15/23 16:29 16:48 16:48 WBC 9.0 RBC 4.12 L Hgb 12.1 Hct 40.0 MCV 97.1 MCH 29.4 MCHC 30.3 L RDW 13.6 Plt Count 254 MPV 10.1 Neut # (Auto) 5.2 Lymph # (Auto) 2.8 Ogle # (Auto) 0.7 Eos # (Auto) 0.3 Baso # (Auto) 0.1 Absolute Nucleated RBC 0.00 Nucleated RBC % 0.0 Sodium 139 Potassium 4.3 Chloride 96 L Carbon Dioxide 38 H Anion Gap 5.0 L BUN 34 H Creatinine 1.1 Estimated GFR (MDRD) 47 L Glucose 107 H POC Whole Bld Glucose 96 Calcium 9.9 Total Bilirubin 0.5 AST 18 ALT 16 Alkaline Phosphatase 66 Troponin I High Sens 8.5 Total Protein 6.9 Albumin 4.3 Globulin 2.6 Albumin/Globulin Ratio 1.7 Lipase 14 - Rads (name of study) CT of the head showing mild to moderate atrophy and chronic microvascular ischemic change without acute findings Relevant Findings:: Final report received, EMP independent interpretation of test PD Medical Decision Making - ED course ED course: 88-year-old woman presents with worsening neurologic deficits over almost [address] of the head was negative but probably reasonable to place her in observation for MRI and PT eval. Telehealth consultation placed at 8:39 PM. Departure - Departure Disposition: ED Place in Observation Clinical Impression: Left sided numbness, Stroke-like symptoms Condition: Stable Forms: PCP List
--- NOTE | 2023-04-15 19:26 | CT Report ---
PROCEDURE: HEAD WO INDICATIONS: cva sx TECHNIQUE: Noncontrast 4.5 mm thick angled axial sections acquired from the foramen magnum to the vertex. For r adiation dose reduction, the following was used: automated exposure control, adjustment of mA and/or kV according to patient size. COMPARISON: None. FINDINGS: Image quality: Excellent. The ventricular system and cortical sulci demonstrate atrophy, consistent for patient's stated age. There are areas of hypodensity in the periventricular and subcortical white matter. There is no acut e intra or extra-axial fluid collection. No acute hemorrhage, mass lesion or midline shift. Brainst em is unremarkable. Globes are symmetrical. Sinuses are aerated. Osseous structures are intact. IMPRESSION: 1. No acute intracranial process. 2. Mild to moderate atrophy and chronic microvascular ischemic changes. Reviewed by: Dinorah Watson MD on 04/15/2023 7:25 PM PDT Approved by: Dinorah Watson MD on 04/15/2023 7:25 PM PDT Station ID: [id number]
[2023-04-15] MEDS ORDERED: SODIUM CHLORIDE FLUSH 0.9% 10 ML SYRINGE IVP PRN (20:47)
[2023-04-15] MEDS ORDERED: ONDANSETRON 4 MG/2 ML VIAL IVP PRN (20:47)
--- NOTE | 2023-04-15 21:22 | HISTORY & PHYSICAL EXAMINATION ---
Chief Complaint - Chief Complaint Chief Complaint: left face/arm/leg numbness & left arm/leg weakness History of Present Illness - Admitted From Admitted From:: ED - History Obtained From Records Reviewed: EMR History obtained from: Patient, daughter, & ED staff Exam Limitations: Tele Medicine - History of Present Illness HPI Comment/Other: 88YOF c chronic hypoxemic resp failure 2/2 COPD, hypothyroidism, gait instability c walker who p/w c left face- cheek area, left arm, and left leg numbness and left arm and left leg weakness. Patient reports sxs started with left arm - numbness and left shoulder pain that started around 1.5 weeks ago. Patient went to see PCP last week and was started on muscle relaxant. Patient did not get relief. She started to have left face numbness and left leg weakness as well. Patient over the weekend fell. Patient reached out to PCP and was recommended to stop and to come into the ED if sxs did not improve. Today, patient had left leg and left arm pain hence patient and daughter presented in the ED for evaluation. Here in the ED, patient had negative imaging. ED requesting stroke rule out. No fever. No URI. no chest pain. No palpitation. No SOB above baseline. She had nausea earlier today. No vomiting. No diarrhea. No dysuria. No bleed. No swelling. No rash. No trauma beside the ground level fall over the weekend. No back pain. 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 Possibly also had a stroke. Dad had allergic rhinitis, stroke, colon cancer. Sister has had breast cancer. Daughter has obstructive sleep apnea Living Situation: Alone Social History Notes: Half a pack per day smoker for 54 years and quit 30 years ago. No history of alcohol abuse. Lives in her own home in [place]. . 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 - Substance History Use: Uses substance without health or social issues: NONE - POLST Patient has POLST: No POLST Status: Full Code Meds/Allgy - Home Medications Home Medications: Ambulatory Orders Medication Instructions Recorded Confirmed allopurinoL [Allopurinol] 300 mg PO DAILY 11/30/14 04/15/23 Cholecalciferol (Vitamin D3) 1,000 units PO DAILY 12/17/16 04/15/23 [Vitamin D3] Potassium Chloride 20 meq PO DAILYWM 04/11/21 04/15/23 Furosemide [Lasix] 40 mg PO DAILY@0800 04/12/21 04/15/23 Levothyroxine Sodium 137 mcg PO QDAC 04/12/21 04/15/23 Omeprazole 40 mg PO BIDAC 04/12/21 04/15/23 Ipratropium [Atrovent] 1 puffs INH Q6H PRN #12.9 gm 04/16/21 04/15/23 Metoprolol Succinate [Toprol Xl] 50 mg PO DAILY #30 tablet 04/16/21 04/15/23 Magnesium Oxide [Magnesium] 500 mg PO DAILY 04/15/23 04/15/23 - Allergies Allergies/Adverse Reactions: Allergies Allergy/AdvReac Type Severity Reaction Status Date / Time codeine Allergy Severe Anaphylaxis Verified 04/15/23 16:18 morphine Allergy Intermediate Nausea Verified 04/15/23 16:18 Review of Systems - Other Findings Other Findings: Negative unless mentioned differently Exam - Vital Signs Reviewed Vital Signs: Yes Vital Signs: Vital Signs x48h Temp Pulse Resp BP Pulse Ox O2 Flow Rate 04/15/23 20:00 79 21 168/73 H 97 1.5 04/15/23 18:39 80 18 161/71 H 97 1.5 04/15/23 16:13 36.6 C 82 20 157/89 H 94 - Physical Exam General Appearance: positive: No acute distress, Alert Eyes Bilateral: positive: Normal inspection ENT: positive: ENT inspection nml Neck: positive: Nml inspection Respiratory: positive: No respiratory distress Skin: positive: Color nml Extremities: positive: Full ROM Neurologic/Psychiatric: positive: Oriented x3, CN's nml (2-12). negative: Motor nml (RUE and LUE 5/5. RLE 5/5. LLE 4/5), Sensation nml Conclusion/Plan - Problem List (1) Left sided numbness Conclusion/Plan: unclear etiology. will r/o stroke. MRI/MRA brain. monitor vitamin deficiency. monitor cardiac enzymes. r/o infection. fall precaution. PT eval. empiric ASA. followup lipid panel and hgba1c for secondary prevention. (2) Chronic hypoxemic respiratory failure Conclusion/Plan: stable. continue 1.5 L NC. restart home breathing treatment. monitor. (3) COPD (chronic obstructive pulmonary disease) Conclusion/Plan: stable. no acute exacerbation. continue breathing treatment. (4) Hypothyroidism Conclusion/Plan: managed. continue levothyroxine (5) Chronic kidney disease, stage III (moderate) Conclusion/Plan: stable renal function level. avoid nephrotoxins. monitor renal function with repeat BMP Qualifiers: Chronic kidney disease stage 3 subtype: stage 3a (GFR 45-59) Qualified Code(s): N18.31 - Chronic kidney disease, stage 3a (6) Hypertension Conclusion/Plan: managed. continue c metoprolol. monitor bp c repeat vital checks. Qualifiers: Hypertension type: primary hypertension Qualified Code(s): I10 - Essential (primary) hypertension - Lab Results Lab results reviewed: Yes Fish Bones: 04/15/23 16:48 04/15/23 16:48 - Diagnostic Imaging Results Diagnostic Imaging Results: positive: Final report reviewed Core Measures - Anticipated LOS I expect patient to be DC'd or transferred within 96 hours.: Yes - Issues Hospital Issues and Management Plan: The patient consented to receive this telemedicine service, which I performed via live two-way audiovisual equipment. The patient is at ([facility]) and I am physically in [facility]. A nurse assisted me in the visit. - DVT/VTE - Prophylaxis VTE/DVT Device ordered at admit?: Yes Telemedicine Consult Details - Provider Location & Consult Time Telemedicine consultation conducted via videoconferencing?: Yes List names and roles of persons who participated in consult:: ED, Daughter, Patient Telemedicine provider location:: [facility] Time Telemedicine consult began:: 20:43 Time Telemedicine consult completed:: 21:48
[2023-04-15] MEDS: HEPARIN 5,000 UNIT/ML VIAL SUBQ SCH (21:27)
[2023-04-15] MEDS: ASPIRIN 325 MG TABLET PO SCH (21:27)
[2023-04-15 22:45] LABS: BILIRUBIN,URINE NEGATIVE (NEGATIVE); GLUCOSE, URINE (UA) NEGATIVE (NEGATIVE); KETONES,URINE (UA) NEGATIVE (NEGATIVE); LEUKOCYTE ESTERASE, URINE NEGATIVE (NEGATIVE); NITRITE,URINE NEGATIVE (NEGATIVE); OCCULT BLOOD,URINE NEGATIVE (NEGATIVE); PROTEIN,URINE NEGATIVE (NEGATIVE); UROBILINOGEN,URINE 0.2 (NORMAL) E.U./dL (NORMAL)
[2023-04-15 22:46] LABS: CLARITY,URINE CLEAR (CLEAR)
[2023-04-15 22:53] LABS: BACTERIA,URINE Few /HPF (None Seen); RBC,URINE None Seen /HPF (0-5); SQUAMOUS EPITHELIAL CELL,UR FEW Squamous (<= Few); WBC,URINE 0-3 /HPF (0-5)
[2023-04-16] MEDS ORDERED: IPRATROPIUM 0.2 MG/ML NEB INH PRN (01:00)
[2023-04-16] MEDS: SODIUM CHLORIDE FLUSH 0.9% 10 ML SYRINGE IVP SCH ×3 (01:15→15:48)
[2023-04-16 06:13] LABS: BASOPHILS % (AUTO) 0.5 %; EOSINOPHILS # (AUTO) 0.3 10^3/uL (0.0-0.7); EOSINOPHILS % (AUTO) 3.1 %; HCT - HEMATOCRIT 36.8 % (37.0-47.0); HGB - HEMOGLOBIN 11.2 g/dL (12.0-16.0); LYMPHOCYTES # (AUTO) 2.8 10^3/uL (1.5-3.5); LYMPHOCYTES % (AUTO) 34.2 %; MEAN CORPUSCULAR HEMOGLOBIN 29.7 pg (27.0-31.0); MEAN CORPUSCULAR HGB CONC 30.4 g/dL (32.0-36.0); MEAN CORPUSCULAR VOLUME 97.6 fL (81.0-99.0); MEAN PLATELET VOLUME 10.1 fL (7.9-10.8); MONOCYTES # (AUTO) 0.7 10^3/uL (0.0-1.0); MONOCYTES % (AUTO) 8.7 %; NEUTROPHILS # (AUTO) 4.3 10^3/uL (1.5-6.6); PLT - PLATELET COUNT 246 10^3/uL (130-450); RED BLOOD COUNT 3.77 10^6/uL (4.20-5.40); RED CELL DISTRIBUTION WIDTH 13.8 % (12.0-15.0)
[2023-04-16 06:27] LABS: CHOL/HDL RATIO 3.2 (<4.4); CHOLESTEROL 151 mg/dL; HDL CHOLESTEROL 47 mg/dL; LDL CHOLESTEROL,CALCULATED 89 mg/dL; LDL/HDL RATIO 1.9 (<4.4); TRIGLYCERIDES 76 mg/dL (48-352); VLDL CHOLESTEROL 15 mg/dL
[2023-04-16] MEDS: LEVOTHYROXINE 25 MCG TABLET PO SCH (06:39)
[2023-04-16] MEDS: LEVOTHYROXINE 112 MCG TABLET PO SCH (06:39)
[2023-04-16 07:02] LABS: PROCALCITONIN 0.07 ng/mL (<0.5)
[2023-04-16 07:10] LABS: MAGNESIUM 1.8 mg/dL (1.7-2.3); THYROID STIMULATING HORMONE 3.19 uIU/mL (0.34-5.60)
[2023-04-16 07:15] LABS: HIV RAPID SCREEN NEGATIVE (NEGATIVE)
[2023-04-16 08:29] LABS: ESTIMATED AVERAGE GLUCOSE 117 mg/dL (70-100); HEMOGLOBIN A1c% 5.7 % (4.27-6.07)
[2023-04-16] MEDS: ASPIRIN 325 MG TABLET PO SCH (08:38)
[2023-04-16] MEDS: PANTOPRAZOLE 40 MG TABLET PO SCH ×2 (08:39→20:56)
[2023-04-16] MEDS: allopurinoL 100 MG TABLET PO SCH (08:40)
[2023-04-16] MEDS: FUROSEMIDE 20 MG TABLET PO SCH (08:41)
[2023-04-16] MEDS: POTASSIUM CHLORIDE 20 MEQ TABLET PO SCH (08:42)
[2023-04-16] MEDS: METOPROLOL SUCCINATE 50 MG TABLET PO SCH (08:42)
[2023-04-16] MEDS: HEPARIN 5,000 UNIT/ML VIAL SUBQ SCH ×2 (08:43→20:56)
[2023-04-16] MEDS ORDERED: CHOLECALCIFEROL 400 UNIT TABLET PO SCH (09:00)
--- NOTE | 2023-04-16 11:29 | PHARMACY PROGRESS NOTE ---
- Best Possible Medication History Admit Date and Time: 04/15/232046 Processed by: Nursing As the person ultimately responsible for medication therapy, providers are able to order a medication from an existing home medication list in [facility] via the "Reconcile Routine" prior to Confirmation of that medication by student support advisor. Such practice is discouraged except when the physician, in their clinical judgment, deems that a medical need exists for a medication without regard to previous use.
[2023-04-16] MEDS: MAGNESIUM OXIDE 400 MG TABLET PO SCH (13:07)
--- NOTE | 2023-04-16 13:13 | MRI Report ---
PROCEDURE: BRAIN W/WO INDICATIONS: r/o stroke mass etc CONTRAST: gadavist 9.9 ml TECHNIQUE: Noncontrast axial T1 spin echo, axial T2 fast spin echo, sagittal and axial FLAIR, coronal T2 fast sp in echo, axial gradient echo, axial diffusion and ADC through the brain. After the administration of contrast, axial and coronal T1 spin echo with fat saturation through the brain. COMPARISON: CTA head 04/15/2023, MRA brain 04/16/2023 FINDINGS: Image quality: Excellent. CSF spaces: Basal cisterns are patent. No extra-axial fluid collections. Ventricles are normal in size and shape. Brain: No midline shift. No intracranial bleeds or masses. No abnormal intracranial enhancement. There is cerebral volume loss for age. There is periventricular white matter chronic small vessel is chemic change. The brainstem appears normal. Diffusion-weighted images demonstrate no acute ischemi c insults. No chronic ischemic insults. Normal intravascular flow voids are present. Skull and face: Calvarial marrow is normal in signal. Orbits appear normal. Sinuses: Sinuses and mastoids appear clear. IMPRESSION: 1. No acute intracranial process. 2. Moderate atrophy and chronic microvascular ischemic changes. Reviewed by: Dinorah Watson MD on 04/16/2023 1:11 PM PDT Approved by: Dinorah Watson MD on 04/16/2023 1:11 PM PDT Station ID: [id number]
--- NOTE | 2023-04-16 13:15 | MRI Report ---
PROCEDURE: ANGIO HEAD WO INDICATIONS: r/o stroke TECHNIQUE: Noncontrast axial 3-D [id number] MR angiogram, with 3-dimensional maximum intensity projection (M IP) reformats of the internal carotid arteries and posterior circulation then performed. COMPARISON: MRI brain 04/16/2023, CT head 04/15/2023 FINDINGS: Image quality: Excellent. Anterior circulation: Intracranial internal carotid arteries demonstrate normal size and intralumina l flow signal. The flow within the paired anterior cerebral arteries is normal and symmetric. The f low within the middle cerebral arteries is normal and symmetric. The anterior communicating artery i s seen. No stenoses, occlusions, or aneurysms. Posterior circulation: There is a slight left vertebral artery dominance. Visualized portions of the vertebral arteries demonstrate normal caliber, and join to form a normal appearing basilar artery. The flow within the posterior cerebral arteries is normal and symmetric. No stenoses, occlusions, or aneurysms. 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 IMPRESSION: No areas of hemodynamically significant stenosis, vascular occlusion or aneurysmal dilation within th e anterior circulation. No areas of hemodynamically significant stenosis, vascular occlusion or aneurysmal dilation within th e posterior circulation. Reviewed by: Dinorah Watson MD on 04/16/2023 1:13 PM PDT Approved by: Dinorah Watson MD on 04/16/2023 1:13 PM PDT Station ID: [id number]
--- NOTE | 2023-04-16 15:36 | PROVIDER PROGRESS NOTE ---
Assessment/Plan - Problem List (1) Left sided numbness Assessment/Plan: She has persistent left arm and left leg weakness, worse in the hands and feet. Still unclear etiology. The left face numbness has resolved MRI/MRA brain done today and showed no major abn. C-spine MRI could not be done in same day due to excessive amount of Gadolinium pt would have to get, which could worsen her underlying CKD Her lipid panel was reviewed and is adequate. Her A1c is also WNL. Plan: Admit to Inpt status from Obs since her numbness symptoms persist Await spine MRI imaging Fall precaution. PT eval. Cont empiric ASA. (2) Fall at home She describes that her R knee buckled and she fell Plan: Check orthostatic VS PT eval. (3) Chronic hypoxemic respiratory failure Conclusion/Plan: Stable. Plan: Continue 1.5 L NC and her usual pulmonary meds (4) COPD without acute exacerbation Conclusion/Plan: Stable Plan: Cont her usual bronchodilators (5) Hypothyroidism Conclusion/Plan: Will continue levothyroxine (6) Chronic kidney disease, stage III (moderate) Conclusion/Plan: Stable renal function level (all labs were reviewed) Plan: Avoid nephrotoxins. Monitor renal function following BMP daily Qualifiers: Chronic kidney disease stage 3 subtype: stage 3a (GFR 45-59) Qualified Code(s): N18.31 - Chronic kidney disease, stage 3a (7) Hypertension - Qualified Code(s): I10 - Essential (primary) hypertension Conclusion/Plan: Stable BP Plan: Continue metoprolol. - Current Meds Current Meds: Current Medications Generic Name Dose Route Start Last Admin Trade Name Arturo PRN Reason Stop Dose Admin Allopurinol 300 mg 04/16/23 09:00 04/16/23 08:40 Allopurinol 100 Mg Tablet PO 300 mg DAILY ALICIA Administration Aspirin 81 mg 04/15/23 21:04 04/16/23 08:38 Aspirin 325 Mg Tablet PO 81 mg DAILYWM ALICIA Administration Cholecalciferol 1,000 unit 04/16/23 09:00 04/16/23 08:37 Cholecalciferol 400 Unit Tablet PO 1,000 unit DAILY ALICIA Administration Furosemide 40 mg 04/16/23 08:00 04/16/23 08:41 Furosemide 20 Mg Tablet PO 40 mg DAILY@0800 ALICIA Administration Heparin Sodium (Porcine) 5,000 unit 04/15/23 21:00 04/16/23 08:43 Heparin 5,000 Unit/Ml Vial SUBQ 5,000 unit BID ALICIA Administration Levothyroxine Sodium 112 mcg 04/16/23 07:00 04/16/23 06:39 Levothyroxine 112 Mcg Tablet PO 112 mcg QDAC ALICIA Administration Levothyroxine Sodium 25 mcg 04/16/23 07:00 04/16/23 06:39 Levothyroxine 25 Mcg Tablet PO 25 mcg QDAC ALICIA Administration Magnesium Oxide 400 mg 04/16/23 12:00 04/16/23 13:07 Magnesium Oxide 400 Mg Tablet PO 400 mg QDLUNCH ALICIA Administration Metoprolol Succinate 50 mg 04/16/23 09:00 04/16/23 08:42 Metoprolol Succinate 50 Mg Tablet PO 50 mg DAILY ALICIA Administration Pantoprazole Sodium 40 mg 04/16/23 09:00 04/16/23 08:39 Pantoprazole 40 Mg Tablet PO 40 mg BID ALICIA Administration Potassium Chloride 20 meq 04/16/23 08:00 04/16/23 08:42 Potassium Chloride 20 Meq Tablet PO 20 meq DAILYWM ALICIA Administration Sodium Chloride 10 ml 04/16/23 01:00 04/16/23 08:43 Sodium Chloride Flush 0.9% 10 Ml Syringe IVP 10 ml 0100,0900,1700 ALICIA Administration - Lab Result Fish Bone Diagrams: 04/16/23 05:56 04/15/23 16:48 - Additional Planning My Orders: My Active Orders 04/16/23 15:30 Admit [Admit \ Transfer \ Status] [RC] .ONCE 04/16/23 15:33 Orthostatic [Vital Signs - Orthostatic] [RC] DAILY 04/17/23 07:00 CERVICAL SPINE W/WO [MRI] Stat LUMBAR SPINE W/WO [MRI] Routine Subjective - Subjective Patient Reports: Other (The left face numbness has resolved, the left arm and left foot numbness continue) Objective Vital Signs: Vital Signs - 24 hr 04/15/23 04/15/23 04/15/23 16:13 18:39 20:00 Temperature 36.6 C Heart Rate 82 80 79 Heart Rate [ Brachial] Respiratory 20 18 21 Rate Blood Pressure 157/89 H 161/71 H 168/73 H Blood Pressure [Left Brachial artery] O2 Saturation 94 97 97 If not protocol 1.5 1.5 : Oxygen Flow, liters/minute 04/15/23 04/15/23 04/15/23 21:19 21:49 22:00 Temperature 36.6 C Heart Rate 93 Heart Rate [ 94 Brachial] Respiratory 18 24 Rate Blood Pressure 188/78 H Blood Pressure 153/85 H [Left Brachial artery] O2 Saturation 98 94 If not protocol 1.5 1.5 1.5 : Oxygen Flow, liters/minute 04/15/23 04/15/23 04/16/23 22:05 23:45 08:00 Temperature 36.6 C 36.4 C L Heart Rate Heart Rate [ 82 84 Brachial] Respiratory 20 20 Rate Blood Pressure Blood Pressure 130/52 L 134/65 H [Left Brachial artery] O2 Saturation 95 95 If not protocol 1.5 1.5 1.5 : Oxygen Flow, liters/minute 04/16/23 04/16/23 09:19 14:01 Temperature 36.5 C Heart Rate Heart Rate [ 89 Brachial] Respiratory 20 Rate Blood Pressure Blood Pressure 119/59 L [Left Brachial artery] O2 Saturation 95 If not protocol 1 1.5 : Oxygen Flow, liters/minute Oxygen O2 Source Nasal cannula I&O (Last 24 Hrs): Intake and Output Totals x24h 04/14/23 04/15/23 04/16/23 23:59 23:59 23:59 Intake Total 480 Output Total 125 700 Balance -125 -220 General: Alert, Oriented x3 HEENT: Atraumatic, EOMI, Other (Wearing O2 via nasal cannula. Is disheveled.) Neck: Supple Neuro: Alert, Focal Deficits (Decrease sensation of left foot, left lateral leg, left fingers, left arm, compared to R side) Respiratory: No respiratory distress, Breath sounds nml Abdomen: Soft Extremities: No clubbing, Other (1+ edema, venous stasis changes with blisters) - Results Results: Laboratory Results WBC 8.0 x10^3/uL (4.8-10.8) 04/16/23 05:56 RBC 3.77 10^6/uL (4.20-5.40) L 04/16/23 05:56 Hgb 11.2 g/dL (12.0-16.0) L 04/16/23 05:56 Hct 36.8 % (37.0-47.0) L 04/16/23 05:56 MCV 97.6 fL (81.0-99.0) 04/16/23 05:56 MCH 29.7 pg (27.0-31.0) 04/16/23 05:56 MCHC 30.4 g/dL (32.0-36.0) L 04/16/23 05:56 RDW 13.8 % (12.0-15.0) 04/16/23 05:56 Plt Count 246 10^3/uL (130-450) 04/16/23 05:56 MPV 10.1 fL (7.9-10.8) 04/16/23 05:56 Neut # (Auto) 4.3 10^3/uL (1.5-6.6) 04/16/23 05:56 Lymph # (Auto) 2.8 10^3/uL (1.5-3.5) 04/16/23 05:56 Webb # (Auto) 0.7 10^3/uL (0.0-1.0) 04/16/23 05:56 Eos # (Auto) 0.3 10^3/uL (0.0-0.7) 04/16/23 05:56 Baso # (Auto) 0.0 10^3/uL (0.0-0.1) 04/16/23 05:56 Absolute Nucleated RBC 0.00 x10^3/uL 04/16/23 05:56 Nucleated RBC % 0.0 /100WBC 04/16/23 05:56 Sodium 139 mmol/L (135-145) 04/15/23 16:48 Potassium 4.3 mmol/L (3.5-4.5) 04/15/23 16:48 Chloride 96 mmol/L (101-111) L 04/15/23 16:48 Carbon Dioxide 38 mmol/L (21-32) H 04/15/23 16:48 Anion Gap 5.0 (6-13) L 04/15/23 16:48 BUN 34 mg/dL (6-20) H 04/15/23 16:48 Creatinine 1.1 mg/dL (0.6-1.3) 04/15/23 16:48 Estimated GFR (MDRD) 47 (>89) L 04/15/23 16:48 Glucose 107 mg/dL (74-104) H 04/15/23 16:48 POC Whole Bld Glucose 96 mg/dL (70 - 100) 04/15/23 16:29 Estimat Average Glucose 117 mg/dL (70-100) H 04/16/23 05:56 Hemoglobin A1c % 5.7 % (4.27-6.07) 04/16/23 05:56 Lactic Acid 0.9 mmol/L (0.5-2.2) 04/16/23 05:56 Calcium 9.9 mg/dL (8.5-10.3) 04/15/23 16:48 Magnesium 1.8 mg/dL (1.7-2.3) 04/16/23 05:56 Total Bilirubin 0.5 mg/dL (0.2-1.0) 04/15/23 16:48 AST 18 IU/L (10-42) 04/15/23 16:48 ALT 16 IU/L (10-60) 04/15/23 16:48 Alkaline Phosphatase 66 IU/L (42-121) 04/15/23 16:48 Ammonia 31.9 umol/L (18-72) 04/16/23 05:56 Troponin I High Sens 10.5 ng/L (2.3-14.8) 04/16/23 05:56 Total Protein 6.9 g/dL (6.4-8.9) 04/15/23 16:48 Albumin 4.3 g/dL (3.2-5.5) 04/15/23 16:48 Globulin 2.6 g/dL (2.1-4.2) 04/15/23 16:48 Albumin/Globulin Ratio 1.7 (1.0-2.2) 04/15/23 16:48 Triglycerides 76 mg/dL (48-352) 04/16/23 05:56 Cholesterol 151 mg/dL (-200) 04/16/23 05:56 LDL Cholesterol, Calc 89 mg/dL (-129) 04/16/23 05:56 VLDL Cholesterol 15 mg/dL 04/16/23 05:56 HDL Cholesterol 47 mg/dL (60-) L 04/16/23 05:56 LDL/HDL Ratio 1.9 (<4.4) 04/16/23 05:56 Cholesterol/HDL Ratio 3.2 (<4.4) 04/16/23 05:56 Lipase 14 U/L (11-82) 04/15/23 16:48 Vitamin B12 478 pg/mL (180-914) 04/16/23 05:56 Folate 22.6 ng/mL (5.90 - >24.8) 04/16/23 05:56 Procalcitonin Immunoas 0.07 ng/mL (<0.5) 04/16/23 05:56 TSH 3.19 uIU/mL (0.34-5.60) 04/16/23 05:56 Free T4 Direct 1.10 ng/dL (0.58-1.64) 04/16/23 05:56 Urine Color YELLOW 04/15/23 22:35 Urine Clarity CLEAR (CLEAR) 04/15/23 22:35 Urine pH 6.0 PH (5.0-7.5) 04/15/23 22:35 Ur Specific [place] 1.020 (1.002-1.030) 04/15/23 22:35 Urine Protein NEGATIVE mg/dL (NEGATIVE) 04/15/23 22:35 Urine Glucose (UA) NEGATIVE mg/dL (NEGATIVE) 04/15/23 22:35 Urine Ketones NEGATIVE mg/dL (NEGATIVE) 04/15/23 22:35 Urine Occult Blood NEGATIVE (NEGATIVE) 04/15/23 22:35 Urine Nitrite NEGATIVE (NEGATIVE) 04/15/23 22:35 Urine Bilirubin NEGATIVE (NEGATIVE) 04/15/23 22:35 Urine Urobilinogen 0.2 (NORMAL) E.U./dL (NORMAL) 04/15/23 22:35 Ur Leukocyte Esterase NEGATIVE (NEGATIVE) 04/15/23 22:35 Urine RBC None Seen /HPF (0-5) 04/15/23 22:35 Urine WBC 0-3 /HPF (0-5) 04/15/23 22:35 Ur Squamous Epith Cells FEW Squamous (<= Few) 04/15/23 22:35 Urine Bacteria Few /HPF (None Seen) 04/15/23 22:35 HIV 1&2 Antibody Rapid NEGATIVE (NEGATIVE) 04/16/23 05:56 - Procedures Procedures: Procedures ENDOSC POLYPECTOMY OF LG INTEST (11/30/14) EXCISION OF STOMACH, ENDO, DIAGN (07/09/16)
[2023-04-16] MEDS: ACETAMINOPHEN 325 MG TABLET PO PRN (20:59)
[2023-04-17] MEDS: SODIUM CHLORIDE FLUSH 0.9% 10 ML SYRINGE IVP SCH ×3 (01:05→17:09)
[2023-04-17 06:12] LABS: RPR Non Reactive (Non Reactive)
[2023-04-17] MEDS: LEVOTHYROXINE 112 MCG TABLET PO SCH (06:32)
[2023-04-17] MEDS: LEVOTHYROXINE 25 MCG TABLET PO SCH (06:32)
[2023-04-17] MEDS: ASPIRIN 325 MG TABLET PO SCH (08:37)
[2023-04-17] MEDS: POTASSIUM CHLORIDE 20 MEQ TABLET PO SCH (08:37)
[2023-04-17] MEDS: FUROSEMIDE 20 MG TABLET PO SCH (08:38)
[2023-04-17] MEDS: METOPROLOL SUCCINATE 50 MG TABLET PO SCH (09:56)
[2023-04-17] MEDS: HEPARIN 5,000 UNIT/ML VIAL SUBQ SCH ×2 (09:56→20:30)
[2023-04-17] MEDS: PANTOPRAZOLE 40 MG TABLET PO SCH ×2 (09:57→20:29)
[2023-04-17] MEDS: allopurinoL 100 MG TABLET PO SCH (09:57)
[2023-04-17] MEDS: CHOLECALCIFEROL 25 MCG TABLET PO SCH (09:57)
[2023-04-17] MEDS: MAGNESIUM OXIDE 400 MG TABLET PO SCH (12:20)
--- NOTE | 2023-04-17 17:13 | MRI Report ---
PROCEDURE: LUMBAR SPINE W/WO INDICATIONS: L leg numbness CONTRAST: gadavist 9.7 ml TECHNIQUE: Noncontrast sagittal T1 spin echo and T2 fast spin echo, sagittal STIR, axial T1 and T2 fast spin ech o through the lumbar spine. In cases with scoliosis, additional coronal T2 fast spin echo may be per formed. After the administration of contrast, sagittal and axial T1 spin echo with fat saturation th rough the lumbar spine. COMPARISON: Correlation is made with prior lumbar plain films, 10/19/2017. Correlation is made with p rior thoracic spine plain films, 04/08/2023. Correlation is made with the accompanying cervical spine M RI. FINDINGS: Image quality: Motion artifact is noted. Alignment and curvature: There is minimal anterolisthesis seen at the L5-S1 level. No definite assoc iated pars defects are seen. Marrow: Marrow is of normal overall signal. No acute vertebral body co mpression fractures. No suspicious marrow enhancement. Spinal cord: Conus medullaris terminates at the L1 level. Visualized spinal cord demonstrates demetria l signal, without suspicious enhancement. Paraspinous soft tissues: No paravertebral masses or abnormal enhancement. Water signal left renal c ysts are partially seen, without enhancement. T12-L1: Normal in appearance. L1-L2: No significant abnormality is seen. L2-L3: The disc height is well-preserved. There is loss of disc signal seen. Mild to moderate disc bulge is seen, which is slightly eccentric to the right. A superimposed central disc protrusion is s een. Mild to moderate bilateral neuroforaminal narrowing can be seen. Mild to moderate central canal narrowing is seen. L3-L4: The disc height is well-preserved. There is loss of disc signal seen. Moderate disc bulge i s seen at this level. A superimposed central disc protrusion is seen. Note is made of an annular fi ssure posteriorly. Mild to moderate facet hypertrophy is seen. There is at least moderate right-sided and moderate left-sided neuroforaminal narrowing. Moderate central canal narrowing is seen. L4-L5: Mild loss of disc height and disc signal are seen. Moderate disc bulge is seen at this leve l. There is a central/right disc protrusion seen, which continues into the right neural foramen. Mod erate facet hypertrophy is seen. There is at least moderate left-sided and moderate to severe right-s ided neuroforaminal narrowing. Compression is seen upon the exiting nerve roots. Moderate central canal narrowing is seen. L5-S1: The disc height is relatively well preserved. Mild to moderate disc bulge is seen, which is eccentric to the left. Mild facet hypertrophy is seen. No significant neuroforaminal narrowing is seen. Mild central canal narrowing is seen. IMPRESSION: No segundo acute abnormality is seen. No abnormal enhancement can be seen. Multiple levels of lumbar spine degenerative change can be seen, which are worst at the L4-L5 level. Reviewed by: Leon Arriaga MD on 04/17/2023 4:12 PM NANY Approved by: Leon Arriaga MD on 04/17/2023 4:12 PM NANY Station ID: [id number]
--- NOTE | 2023-04-17 17:21 | MRI Report ---
PROCEDURE: CERVICAL SPINE W/WO INDICATIONS: eval arm and leg numbness and weakness CONTRAST: gadavist 9.7 ml TECHNIQUE: Noncontrast sagittal T1 spin echo and T2 fast spin echo, sagittal STIR, sagittal PD fast spin echo, f oraminal oblique sagittal T2 fast spin echo, axial gradient echo or T2 fast spin echo through the cer vical spine. After the administration of contrast, sagittal and axial T1 spin echo with fat saturati on through the cervical spine. COMPARISON: Correlation is made with the accompanying lumbar spine MRI. Correlation is also made wit h thoracic spine plain films, 04/08/2023. FINDINGS: Image quality: Motion artifact is noted. Alignment and curvature: There is straightening of the normal cervical lordosis. No significant AP alignment abnormality can be seen. Marrow: Marrow demonstrates normal overall signal. Spinal cord: Minimal, potential increased signal can be seen within the cervical cord at the C5-C6 l evel, as on series 7 image 10. Visualized spinal cord is otherwise normal in size, without white gilbert er lesions. No suspicious intramedullary enhancement. No cerebellar tonsillar herniation. Paraspinous soft tissues: No paravertebral masses or suspicious enhancement. Focal degenerative change can be seen involving the C1-C2 interface anteriorly. C2-C3: Mild loss of disc height and disc signal are seen. Moderate disc osteophyte complex is seen, with a central disc osteophyte protrusion. Mild to moderate facet hypertrophy is seen. There is at le ast moderate right-sided and moderate left-sided neuroforaminal narrowing. Moderate central canal na rrowing is seen. Associated mass effect is seen upon the ventral spinal cord. C3-C4: Mild loss of disc height and disc signal are seen. Moderate disc osteophyte complex is seen, with a relatively prominent central disc osteophyte protrusion. Mild to moderate facet hypertrophy c an be seen. There is moderate to severe bilateral neuroforaminal narrowing seen. At least moderate ce ntral canal narrowing is seen, with associated ventral cord flattening. C4-C5: Mild loss of disc height and disc signal are seen. At least moderate disc osteophyte complex is seen. There is a central disc osteophyte protrusion. There is mild right-sided and [id number] e left-sided facet hypertrophy. There is moderate to severe bilateral neuroforaminal narrowing, right worse than left. At least moderate central canal narrowing is seen, with associated ventral cord fla ttening. C5-C6: Moderate loss of disc height and signal are seen. Moderate disc osteophyte complex is seen. There is a central disc osteophyte protrusion seen. Moderate facet hypertrophy is seen. Moderate to severe bilateral neuroforaminal narrowing can be seen. There is moderate to severe central canal narr owing seen, with associated ventral cord flattening. C6-C7: At least moderate loss of disc height and disc signal can be seen at this level. Moderate dis c osteophyte complex is seen, with a central disc osteophyte protrusion. Mild facet hypertrophy is s een. Moderate to severe bilateral neuroforaminal narrowing can be seen. Moderate central canal narro wing is seen. Associated mass effect is seen upon the ventral spinal cord. C7-T1: The disc height is well-preserved. There is loss of disc signal seen. Mild disc osteophyte c omplex is seen. Mild facet hypertrophy is seen. Mild to moderate bilateral neuroforaminal narrowin g can be seen. No significant central canal narrowing is seen. IMPRESSION: Multiple levels of significant cervical spine degenerative change can be seen, with multiple levels o f moderate to severe bilateral neuroforaminal narrowing. Several levels of moderate to severe or mode rate central canal narrowing can be seen, with associated mass effect upon the ventral spinal cord. Minimal, potential increased signal can be seen within the cervical cord itself at the C5-C6 level. 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 No abnormal enhancement can be seen. Straightening of the normal cervical lordosis is seen, which is commonly observed in patients with mu scular spasm. Reviewed by: Leon Arriaga MD on 04/17/2023 4:19 PM NANY Approved by: Leon Arriaga MD on 04/17/2023 4:19 PM NANY Station ID: [id number]
--- NOTE | 2023-04-17 18:55 | PROVIDER PROGRESS NOTE ---
Assessment/Plan - Problem List (1) Spinal cord compression Assessment/Plan: C-spine MRI could not be done in same day as brain MRi due to excessive amount of Gadolinium pt would have to get, which could worsen her underlying CKD. Today she had C-spine MRI and lumbar spine MRI. The results show multiple le vels of spinal cord compression from various different causes. There is a statement that she has "mass effect". Plan: I plan to start steroids to help with any edema/inflammation of her cord, which could improve on steroids I will contact neurosurgery or a coding and reimbursement specialist at a larger facility to get their recommendations regarding her management, the recommended dose of steroids and overall plan going forward. Since her spine MRI was only resulted around 1800, and I leave my shift at 1900, and since there is no shift superintendent caustic cresylate provider to sign out to for contacting neurosurgeon/coding and reimbursement specialist, we just have a telemedicine doctor available who will not be able to contact a specialist from offsite on her behalf, this will have to be done on day shift tomorrow. If OKd by coding and reimbursement specialist, I anticipate that she will be discharged tomorrow. I reviewed this plan with the patient and her son and daughter at bedside today (2) Left sided numbness Assessment/Plan: She has persistent left arm and left leg weakness, worse in the hands and feet. The left face numbness has resolved MRI/MRA brain done yesterday and showed no major abn. C-spine MRI could not be done on same day yesterday due to excessive amount of Gadolinium pt would have to get, which could worsen her underlying CKD Her lipid panel was reviewed and is adequate. Her A1c is also WNL. Plan: Fall precaution. PT eval. Cont empiric baby ASA as the face numbness could have been a TIA (3) Fall at home She describes that her R knee buckled and her R arm spasm'd and she fell Plan: Cont to check orthostatic VS PT eval. (4) Chronic hypoxemic respiratory failure Conclusion/Plan: Stable. Plan: Continue 1.5 L NC and her usual pulmonary meds (5) COPD without acute exacerbation Conclusion/Plan: Stable Plan: Cont her usual bronchodilators (6) Hypothyroidism Conclusion/Plan: Will continue her Levothyroxine (7) Chronic kidney disease, stage III (moderate) Conclusion/Plan: Stable renal function level (all labs were reviewed) Plan: Avoid nephrotoxins. Monitor renal function following BMP daily Qualifiers: Chronic kidney disease stage 3 subtype: stage 3a (GFR 45-59) Qualified Code(s): N18.31 - Chronic kidney disease, stage 3a (8) Hypertension - Qualified Code(s): I10 - Essential (primary) hypertension Conclusion/Plan: Stable BP Plan: Continue metoprolol. - Current Meds Current Meds: Current Medications Generic Name Dose Route Start Last Admin Trade Name Freq PRN Reason Stop Dose Admin Acetaminophen 650 mg 04/15/23 20:47 04/16/23 20:59 Acetaminophen 325 Mg Tablet PO 650 mg Q4HR PRN Administration Pain 1 to 4, or Fever Allopurinol 300 mg 04/16/23 09:00 04/17/23 09:57 Allopurinol 100 Mg Tablet PO 300 mg DAILY ALICIA Administration Aspirin 81 mg 04/15/23 21:04 04/17/23 08:37 Aspirin 325 Mg Tablet PO 81 mg DAILYWM ALICIA Administration Cholecalciferol 25 mcg 04/17/23 10:00 04/17/23 09:57 Cholecalciferol 25 Mcg Tablet PO 25 mcg DAILY ALICIA Administration Furosemide 40 mg 04/16/23 08:00 04/17/23 08:38 Furosemide 20 Mg Tablet PO 40 mg DAILY@0800 ALICIA Administration Heparin Sodium (Porcine) 5,000 unit 04/15/23 21:00 04/17/23 09:56 Heparin 5,000 Unit/Ml Vial SUBQ 5,000 unit BID ALICIA Administration Levothyroxine Sodium 112 mcg 04/16/23 07:00 04/17/23 06:32 Levothyroxine 112 Mcg Tablet PO 112 mcg QDAC ALICIA Administration Levothyroxine Sodium 25 mcg 04/16/23 07:00 04/17/23 06:32 Levothyroxine 25 Mcg Tablet PO 25 mcg QDAC ALICIA Administration Magnesium Oxide 400 mg 04/16/23 12:00 04/17/23 12:20 Magnesium Oxide 400 Mg Tablet PO 400 mg QDLUNCH ALICIA Administration Metoprolol Succinate 50 mg 04/16/23 09:00 04/17/23 09:56 Metoprolol Succinate 50 Mg Tablet PO 50 mg DAILY ALICIA Administration Pantoprazole Sodium 40 mg 04/16/23 09:00 04/17/23 09:57 Pantoprazole 40 Mg Tablet PO 40 mg BID ALICIA Administration Potassium Chloride 20 meq 04/16/23 08:00 04/17/23 08:37 Potassium Chloride 20 Meq Tablet PO 20 meq DAILYWM ALICIA Administration Sodium Chloride 10 ml 04/16/23 01:00 04/17/23 17:09 Sodium Chloride Flush 0.9% 10 Ml Syringe IVP 10 ml 0100,0900,1700 ALICIA Administration - Lab Result Fish Bone Diagrams: 04/16/23 05:56 04/15/23 16:48 Subjective - Subjective Patient Reports: Other (Unchanged L arm and finger numbness and L leg numbness) Objective Vital Signs: Vital Signs - 24 hr 04/16/23 04/16/23 04/16/23 19:35 20:00 23:45 Temperature 36.5 C 36.9 C Heart Rate [ 82 79 Brachial] Respiratory 24 20 Rate Blood Pressure [Left Brachial artery] Blood Pressure 120/53 L 140/64 H [Right Brachial artery] O2 Saturation 97 96 If not protocol 1 1.5 1.5 : Oxygen Flow, liters/minute 04/17/23 04/17/23 04/17/23 05:14 07:33 08:00 Temperature 36.4 C L 36.3 C L Heart Rate [ 85 95 Brachial] Respiratory 18 28 H Rate Blood Pressure 116/43 L [Left Brachial artery] Blood Pressure 104/66 [Right Brachial artery] O2 Saturation 96 90 L If not protocol 1.5 1 1.5 : Oxygen Flow, liters/minute 04/17/23 04/17/23 09:58 17:10 Temperature 36.9 C Heart Rate [ 83 87 Brachial] Respiratory 20 Rate Blood Pressure 130/41 L [Left Brachial artery] Blood Pressure 146/58 H [Right Brachial artery] O2 Saturation 93 If not protocol 1.5 : Oxygen Flow, liters/minute Oxygen O2 Source [With Activity] Nasal cannula O2 Source Nasal cannula I&O (Last 24 Hrs): Intake and Output Totals x24h 04/15/23 04/16/23 04/17/23 23:59 23:59 23:59 Intake Total 1050 780 Output Total 125 700 Balance -125 350 780 General: Alert, Oriented x3 HEENT: Mucous membr. moist/pink, Other (Wearing O2 n.c.) Neck: Supple, No JVD Neuro: Alert, Other (L arm and leg numbness) Cardiovascular: Regular rate Respiratory: No respiratory distress (on her O2via n.c.) Abdomen: Soft, Other (Obese) Extremities: No clubbing, Other (2+ edema to below knees, venous stasis changes, blisters on ant-lat shins Bilat) - Results Results: Laboratory Results WBC 8.0 x10^3/uL (4.8-10.8) 04/16/23 05:56 RBC 3.77 10^6/uL (4.20-5.40) L 04/16/23 05:56 Hgb 11.2 g/dL (12.0-16.0) L 04/16/23 05:56 Hct 36.8 % (37.0-47.0) L 04/16/23 05:56 MCV 97.6 fL (81.0-99.0) 04/16/23 05:56 MCH 29.7 pg (27.0-31.0) 04/16/23 05:56 MCHC 30.4 g/dL (32.0-36.0) L 04/16/23 05:56 RDW 13.8 % (12.0-15.0) 04/16/23 05:56 Plt Count 246 10^3/uL (130-450) 04/16/23 05:56 MPV 10.1 fL (7.9-10.8) 04/16/23 05:56 Neut # (Auto) 4.3 10^3/uL (1.5-6.6) 04/16/23 05:56 Lymph # (Auto) 2.8 10^3/uL (1.5-3.5) 04/16/23 05:56 Upson # (Auto) 0.7 10^3/uL (0.0-1.0) 04/16/23 05:56 Eos # (Auto) 0.3 10^3/uL (0.0-0.7) 04/16/23 05:56 Baso # (Auto) 0.0 10^3/uL (0.0-0.1) 04/16/23 05:56 Absolute Nucleated RBC 0.00 x10^3/uL 04/16/23 05:56 Nucleated RBC % 0.0 /100WBC 04/16/23 05:56 Sodium 139 mmol/L (135-145) 04/15/23 16:48 Potassium 4.3 mmol/L (3.5-4.5) 04/15/23 16:48 Chloride 96 mmol/L (101-111) L 04/15/23 16:48 Carbon Dioxide 38 mmol/L (21-32) H 04/15/23 16:48 Anion Gap 5.0 (6-13) L 04/15/23 16:48 BUN 34 mg/dL (6-20) H 04/15/23 16:48 Creatinine 1.1 mg/dL (0.6-1.3) 04/15/23 16:48 Estimated GFR (MDRD) 47 (>89) L 04/15/23 16:48 Glucose 107 mg/dL (74-104) H 04/15/23 16:48 POC Whole Bld Glucose 96 mg/dL (70 - 100) 04/15/23 16:29 Estimat Average Glucose 117 mg/dL (70-100) H 04/16/23 05:56 Hemoglobin A1c % 5.7 % (4.27-6.07) 04/16/23 05:56 Lactic Acid 0.9 mmol/L (0.5-2.2) 04/16/23 05:56 Calcium 9.9 mg/dL (8.5-10.3) 04/15/23 16:48 Magnesium 1.8 mg/dL (1.7-2.3) 04/16/23 05:56 Total Bilirubin 0.5 mg/dL (0.2-1.0) 04/15/23 16:48 AST 18 IU/L (10-42) 04/15/23 16:48 ALT 16 IU/L (10-60) 04/15/23 16:48 Alkaline Phosphatase 66 IU/L (42-121) 04/15/23 16:48 Ammonia 31.9 umol/L (18-72) 04/16/23 05:56 Troponin I High Sens 10.5 ng/L (2.3-14.8) 04/16/23 05:56 Total Protein 6.9 g/dL (6.4-8.9) 04/15/23 16:48 Albumin 4.3 g/dL (3.2-5.5) 04/15/23 16:48 Globulin 2.6 g/dL (2.1-4.2) 04/15/23 16:48 Albumin/Globulin Ratio 1.7 (1.0-2.2) 04/15/23 16:48 Triglycerides 76 mg/dL (48-352) 04/16/23 05:56 Cholesterol 151 mg/dL (-200) 04/16/23 05:56 LDL Cholesterol, Calc 89 mg/dL (-129) 04/16/23 05:56 VLDL Cholesterol 15 mg/dL 04/16/23 05:56 HDL Cholesterol 47 mg/dL (60-) L 04/16/23 05:56 LDL/HDL Ratio 1.9 (<4.4) 04/16/23 05:56 Cholesterol/HDL Ratio 3.2 (<4.4) 04/16/23 05:56 Lipase 14 U/L (11-82) 04/15/23 16:48 Vitamin B12 478 pg/mL (180-914) 04/16/23 05:56 Folate 22.6 ng/mL (5.90 - >24.8) 04/16/23 05:56 Procalcitonin Immunoas 0.07 ng/mL (<0.5) 04/16/23 05:56 TSH 3.19 uIU/mL (0.34-5.60) 04/16/23 05:56 Free T4 Direct 1.10 ng/dL (0.58-1.64) 04/16/23 05:56 Urine Color YELLOW 04/15/23 22:35 Urine Clarity CLEAR (CLEAR) 04/15/23 22:35 Urine pH 6.0 PH (5.0-7.5) 04/15/23 22:35 Ur Specific [place] 1.020 (1.002-1.030) 04/15/23 22:35 Urine Protein NEGATIVE mg/dL (NEGATIVE) 04/15/23 22:35 Urine Glucose (UA) NEGATIVE mg/dL (NEGATIVE) 04/15/23 22:35 Urine Ketones NEGATIVE mg/dL (NEGATIVE) 04/15/23 22:35 Urine Occult Blood NEGATIVE (NEGATIVE) 04/15/23 22:35 Urine Nitrite NEGATIVE (NEGATIVE) 04/15/23 22:35 Urine Bilirubin NEGATIVE (NEGATIVE) 04/15/23 22:35 Urine Urobilinogen 0.2 (NORMAL) E.U./dL (NORMAL) 04/15/23 22:35 Ur Leukocyte Esterase NEGATIVE (NEGATIVE) 04/15/23 22:35 Urine RBC None Seen /HPF (0-5) 04/15/23 22:35 Urine WBC 0-3 /HPF (0-5) 04/15/23 22:35 Ur Squamous Epith Cells FEW Squamous (<= Few) 04/15/23 22:35 Urine Bacteria Few /HPF (None Seen) 04/15/23 22:35 RPR Non Reactive (Non Reactive) 04/16/23 05:56 HIV 1&2 Antibody Rapid NEGATIVE (NEGATIVE) 04/16/23 05:56 - Procedures Procedures: Procedures ENDOSC POLYPECTOMY OF LG INTEST (11/30/14) EXCISION OF STOMACH, ENDO, DIAGN (07/09/16)
[2023-04-17] MEDS: ACETAMINOPHEN 325 MG TABLET PO PRN (21:47)
[2023-04-18] MEDS: SODIUM CHLORIDE FLUSH 0.9% 10 ML SYRINGE IVP SCH ×2 (00:54→08:16)
[2023-04-18] MEDS: ACETAMINOPHEN 325 MG TABLET PO PRN (06:43)
[2023-04-18] MEDS: LEVOTHYROXINE 112 MCG TABLET PO SCH (06:43)
[2023-04-18] MEDS: LEVOTHYROXINE 25 MCG TABLET PO SCH (06:43)
[2023-04-18] MEDS: HEPARIN 5,000 UNIT/ML VIAL SUBQ SCH (08:14)
[2023-04-18] MEDS: FUROSEMIDE 20 MG TABLET PO SCH (08:14)
[2023-04-18] MEDS: CHOLECALCIFEROL 25 MCG TABLET PO SCH (08:14)
[2023-04-18] MEDS: METOPROLOL SUCCINATE 50 MG TABLET PO SCH (08:15)
[2023-04-18] MEDS: allopurinoL 100 MG TABLET PO SCH (08:15)
[2023-04-18] MEDS: PANTOPRAZOLE 40 MG TABLET PO SCH (08:15)
[2023-04-18] MEDS: ASPIRIN 325 MG TABLET PO SCH (08:15)
[2023-04-18] MEDS: POTASSIUM CHLORIDE 20 MEQ TABLET PO SCH (08:15)
[2023-04-18] MEDS: MAGNESIUM OXIDE 400 MG TABLET PO SCH (14:46)
[2023-04-18 16:16] VITALS: BP 137/55; O2SAT 98
--- NOTE | 2023-04-18 17:02 | Discharge Plan ---
Discharge Plan Problem Reviewed?: Yes Disposition: Home, Self Care Condition: Fair Prescriptions: predniSONE [Deltasone] 5 - 10 mg PO UD #15 tablet Diet: Low Sodium Activity Restrictions: Activity as Tolerated Shower Restrictions: No Driving Restrictions: No Instruction Topics: Cervical Spine Disk Probs Health Concerns: You were hospitalized to evaluate sudden left face numbness that followed recent left leg numbness & pain and previous left arm and finger numbness with muscle jerks. The CAT scan amnd MRI of your brain showed no stroke. The MRI of your neck showed multiple areas where there is compression onto your spinal cord. I spoke to Dr. Herring, neurosurgeon from , who said this is cervical myelopathy and that you can be discharged with steroid prescriptions to take. His office will call you to set up an appointment to have a consultation with him. Being mostly in bed here for 3 days has probably decreased some of the inflammation of the spinal cord. It is not advised that you do activities that involve bending your spine. Please resume all your usual pre-hospital medications and oxygen. I have ordered the new steroid (Prednisone) for you to take for 10 days. And you are already on a stomach medicine (Protonix, to prevent an ulcer while on steroids). The prescription was electronically sent to your [email or web address] pharmacy in [place]. Plan of Treatment: As above. Care Goals: Improvement in symptoms and stabilization are the goals. Assessment: The patient understands and is agreeable with the plan. Additional Instructions or Follow Up instructions: If you have new or worsening symptoms, call your primary care provider for advice, or go to an urgent care clinic, or come to the ER. No Smoking: If you smoke, Please STOP! Call for help. Follow-up with: CORBIN VELASCO ARNP [Physician No Access] - Angela Calixto ARNP [Physician No Access] -
--- NOTE | 2023-04-18 17:10 | DISCHARGE SUMMARY ---
Discharge Summary Admit Date: 04/15/23 Discharge Date: 04/18/23 Discharging Provider: Dr Brit Garcia Primary Care Provider: Natalia Piper NP or Shala Calixto NP Condition at Discharge: Fair Discharge Disposition: 01 Home, Self Care - HPI History of Present Illness: [id number] c chronic hypoxemic resp failure 2/2 COPD, hypothyroidism, gait instability c walker who presented c numbness of left face- cheek area, left arm, and left leg numbness and left arm and left leg weakness. Patient reports sxs started with left arm - numbness and left shoulder pain that started around 1.5 weeks ago. Patient went to see PCP last week and was started on muscle relaxant. Patient did not get relief. She started to have left face numbness and left leg weakness as well 1 day ago. Patient fell while walking in her home yesterday. No syncope or lightheaedednes. It was her knees buckling plus muscle jerking in her arm. Patient reached out to PCP and was recommended to come into the ED if sxs did not improve. Today, patient had left lower leg and left arm pain with continued numness of arm, leg and face, hence patient and daughter presented into the ED for evaluation. No fever. No URI. no chest pain. No palpitation. No SOB above baseline. She had nausea earlier today. No vomiting. No diarrhea. No dysuria. No bleed. No swelling. No rash. No trauma beside the ground level fall over the weekend. No back pain. Here in the ED, patient had negative CT imaging for a stroke. ED provider requesting admission on Hospitalist service for stroke work-up. - HOSPITAL COURSE Hospital Course: (1) Left sided numbness She had persistent left arm and left leg weakness, worse in the hands and feet. The left face numbness had resolved. MRI/MRA brain was done and showed no stroke. C-spine MRI could not be done on same day yesterday due to excessive amount of Gadolinium she would have to get, which could have worsened her underlying CKD. Her lipid panel was reviewed and was adequate. Her A1c was also WNL. We had her on empiric baby ASA since her face numbness could have been a TIA (2) Spinal cord compression Spine MRI had to wait a day. She underwent C-spine MRI and lumbar spine MRI. The results showed multiple levels of spinal cord compression from various different causes. There is a statement that she has "mass effect". I contacted neurosurgery at to get their recommendations regarding dose of steroids and overall plan going forward. I spoke to Dr Herring, neurosurgeon at , who said she has cervical myelopathy, advised Prednisone 5 mg po BID for 5 days, then 5 mg daily for 5 days and said his office will contact her for an appointment to see him. (3) Fall at home She described that her R knee buckled and her R arm spasm'd and she fell. Orthostatic VS were normal and she was independent as per PT eval. (4) Chronic hypoxemic respiratory failure Stable on her usual O2 at 1.5 L NC and her usual pulmonary meds (5) COPD without acute exacerbation Stable on her usual bronchodilators (6) Hypothyroidism We continued her Levothyroxine (7) Chronic kidney disease, stage III (moderate) - Chronic kidney disease stage 3 subtype: stage 3a (GFR 45-59) Qualified Code(s): N18.31 - Chronic kidney disease, stage 3a She had stable renal function (8) Hypertension She had stable BP on her metoprolol. - ALLERGIES Allergies/Adverse Reactions: Allergies Allergy/AdvReac Type Severity Reaction Status Date / Time codeine Allergy Severe Anaphylaxis Verified 04/15/23 16:18 morphine Allergy Intermediate Nausea Verified 04/15/23 16:18 - MEDICATIONS Home Medications: Ambulatory Orders Medication Instructions Recorded Confirmed allopurinoL [Allopurinol] 300 mg PO DAILY 11/30/14 04/15/23 Cholecalciferol (Vitamin D3) 1,000 units PO DAILY 12/17/16 04/15/23 [Vitamin D3] Potassium Chloride 20 meq PO DAILYWM 04/11/21 04/15/23 Furosemide [Lasix] 40 mg PO DAILY@0800 04/12/21 04/15/23 Levothyroxine Sodium 137 mcg PO QDAC 04/12/21 04/15/23 Omeprazole 40 mg PO BIDAC 04/12/21 04/15/23 Ipratropium [Atrovent] 1 puffs INH Q6H PRN #12.9 gm 04/16/21 04/15/23 Metoprolol Succinate [Toprol Xl] 50 mg PO DAILY #30 tablet 04/16/21 04/15/23 Magnesium Oxide [Magnesium] 500 mg PO DAILY 04/15/23 04/15/23 predniSONE [Deltasone] 5 - 10 mg PO UD #15 tablet 04/18/23 - PHYSICAL EXAM AT DISCHARGE General Appearance: positive: No acute distress, Alert Eyes Bilateral: positive: Normal inspection, EOMI ENT: positive: ENT inspection nml, No signs of dehydration, Other (wearing O2 via n.c.) Neck: positive: Nml inspection, No JVD Respiratory: positive: No respiratory distress, Breath sounds nml Cardiovascular: positive: Regular rate & rhythm, No murmur Abdomen: positive: Non-tender, Nml bowel sounds, No distention Skin: positive: Warm, Dry Extremities: positive: Non-tender, No pedal edema Neurologic/Psychiatric: positive: Oriented x3, Motor nml, Other (Abn sensation of the L arm and hand and fingers, and of the L leg and foot) - LABS Result Diagrams: 04/16/23 05:56 04/15/23 16:48 - DIAGNOSTIC IMAGING Diagnostic Imaging Results: Final report reviewed - FOLLOW UP Follow Up: See Dr Herring, neurosurgeon , his office to contact the patient. - TIME SPENT Time Spent in Discharge (Minutes): 40
== END 2023-04-18 18:40 | disposition home or self-care (01) | DRG 92 ==
LOC: ED 16:07 → MS2 20:47 → OBSVTOIN 04-16 15:30
PROVIDERS: ADMIT Internal Medicine; ATTEND Internal Medicine
DX: R20.2 Paresthesia of skin (principal); R20.0 Anesthesia of skin; G95.20 Unspecified cord compression; J96.11 Chronic respiratory failure with hypoxia; J44.9 Chronic obstructive pulmonary disease, unspecified; N18.4 Chronic kidney disease, stage 4 (severe); E03.9 Hypothyroidism, unspecified; J45.909 Unspecified asthma, uncomplicated; N18.31 Chronic kidney disease, stage 3a; I12.9 Hypertensive chronic kidney disease with stage 1 through stage 4 chronic kidney disease, or unspecified chronic kidney disease; G47.30 Sleep apnea, unspecified; Z99.81 Dependence on supplemental oxygen; K21.9 Gastro-esophageal reflux disease without esophagitis; M25.512 Pain in left shoulder; M79.605 Pain in left leg; M79.602 Pain in left arm; R26.89 Other abnormalities of gait and mobility; R53.1 Weakness; Z63.5 Disruption of family by separation and divorce; Z79.890 Hormone replacement therapy; Z79.899 Other long term (current) drug therapy; Z80.0 Family history of malignant neoplasm of digestive organs; Z80.3 Family history of malignant neoplasm of breast; Z82.3 Family history of stroke; Z82.49 Family history of ischemic heart disease and other diseases of the circulatory system; Z86.010 Personal history of colon polyps; Z87.891 Personal history of nicotine dependence; Z88.5 Allergy status to narcotic agent; Z91.81 History of falling
CPT/HCPCS: 36415; 70450; 70544; 70553; 72156; 72158; 80053; 80061; 81001; 82140; 82607; 82746; 83036; 83605; 83690; 83735; 84145; 84207; 84439; 84443; 84484; 85025; 86592; 86703; 87086; 93005; 96372; 97161; 97530; 99284; 99285; A9270; A9585; 83721

== ENCOUNTER 2023-06-12 20:52 | Outpatient (CLI) | payer MEDICARE, BC | END 2023-06-12 20:53 | disposition critical access hospital (66) | LOC: EMS 20:52 | DX: M25.461 Effusion, right knee (principal) | CPT/HCPCS: A0425; A0429 ==

== ENCOUNTER 2023-06-12 21:16 | Emergency (ER) | payer MEDICARE, BC ==
--- NOTE | 2023-06-12 21:28 | ED Physician Documentation ---
PD HPI LOWER EXT INJURY - Stated complaint Stated Complaint: RT KNEE INJURY - Chief complaint Chief Complaint: Ext Problem - History obtained from History obtained from: Patient, EMS - Additional information Additional information: BIBA. 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 She was pulling her pants down when she lost her balance and was going to fall backwards; she braced herself against the sink which prevented her from falling. However, in bracing herself from falling, she felt a sudden, sharp right knee pain accompanied by a popping sound/sensation of the right knee. She was unable to get off of the toilet due to severe pain with any movement of the right knee. She denies any other pain/injury. Review of Systems Musculoskeletal: reports: Joint pain, Pain with weight bearing Neurologic: denies: Generalized weakness, Focal weakness, Numbness, Headache, Head injury, LOC PD PAST MEDICAL HISTORY - Past Medical History Past Medical History: Yes Cardiovascular: Hypertension, Other Respiratory: Asthma, Sleep apnea Neuro: None Endocrine/Autoimmune: HyPOthyroidism, Other GI: GERD, Colon polyps, Other COUNTER MAKER: None : Incontinence, Renal insuffiency, Kidney stones HEENT: None Psych: None Musculoskeletal: Osteopenia, Gout, Other Derm: Herpes zoster, Other - Past Surgical History Past Surgical History: Yes General: Colonoscopy, EGD /COUNTER MAKER: Hysterectomy Cardiovascular: Cardiac catheterization HEENT: Cataracts - Present Medications Home Medications: Ambulatory Orders Medication Instructions Recorded Confirmed allopurinoL [Allopurinol] 300 mg PO DAILY 11/30/14 04/15/23 Cholecalciferol (Vitamin D3) 1,000 units PO DAILY 12/17/16 04/15/23 [Vitamin D3] Potassium Chloride 20 meq PO DAILYWM 04/11/21 04/15/23 Furosemide [Lasix] 40 mg PO DAILY@0800 04/12/21 04/15/23 Levothyroxine Sodium 137 mcg PO QDAC 04/12/21 04/15/23 Omeprazole 40 mg PO BIDAC 04/12/21 04/15/23 Ipratropium [Atrovent] 1 puffs INH Q6H PRN #12.9 gm 04/16/21 04/15/23 Metoprolol Succinate [Toprol Xl] 50 mg PO DAILY #30 tablet 04/16/21 04/15/23 Magnesium Oxide [Magnesium] 500 mg PO DAILY 04/15/23 04/15/23 predniSONE [Deltasone] 5 - 10 mg PO UD #15 tablet 04/18/23 - Allergies Allergies/Adverse Reactions: Allergies Allergy/AdvReac Type Severity Reaction Status Date / Time codeine Allergy Severe Anaphylaxis Verified 06/12/23 21:25 morphine Allergy Intermediate Nausea Verified 06/12/23 21:25 - Social History Does the pt smoke?: No Smoking Status: Never smoker Does the pt drink ETOH?: No Does the pt have substance abuse?: No - Immunizations Immunizations are current?: Yes - POLST Patient has POLST: No POLST Status: Full Code PD ED PE NORMAL - Vitals Vital signs reviewed: Yes - General General: Alert and oriented X 3, Well developed/nourished, Other (appears to be in painful distress at rest which is exacerbated with any movement/palpation involving right knee) - Cardiac Cardiac: RRR, No murmur - Respiratory Respiratory: No respiratory distress, Clear bilaterally - Abdomen Abdomen: Soft, Non tender - Derm Derm: Normal color, Warm and dry - Neuro Neuro: No sensory deficit (LTS intact BLE) PD ED PE EXPANDED - Extremities Extremities: Tenderness, Limited ROM (right knee swelling, exquisite TTP. unable to flex knee due to severe pain with attempt to move out position of knee extension), Swelling, Right knee Results - Vitals Vitals: Vital Signs - 24 hr 06/12/23 06/12/23 06/13/23 21:23 23:25 00:33 Temperature 36.9 C Heart Rate 104 H 108 H 109 H Respiratory 22 18 18 Rate Blood Pressure 171/97 H 174/73 H 174/64 H O2 Saturation 99 98 99 If not protocol : Oxygen Flow, liters/minute 06/13/23 06/13/23 06/13/23 02:00 04:22 06:00 Temperature Heart Rate 111 H 106 H 98 Respiratory 18 18 16 Rate Blood Pressure 156/62 H 148/68 H 167/55 H O2 Saturation 98 95 96 If not protocol 3 3 : Oxygen Flow, liters/minute Oxygen O2 Source [] Nasal cannula O2 Source Nasal cannula - Rads (name of study) right knee xrays Relevant Findings:: Prelim report reviewed, See rad report PD Medical Decision Making - ED course Complexity details: reviewed results, re-evaluated patient, considered differential, d/w patient ED course: Plan-film right knee x-rays interpreted by radiologist as "no gross acute left [sic] knee fracture or dislocation. 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 Moderate to large joint effusion. Consider MRI of knee for evaluation of internal derangement." Note that radiologist's reading mentions the left knee although the x-rays are of the right knee. Patient had significant pain throughout ED stay requiring repeated doses of fentanyl which became less effective and thus she is then given 1 mg of Dilaudid with adequate effect. Plan is to hold patient until the a.m. in the ED for social work consult to attempt to make arrangements suitable for discharge home with appropriate care, considering she will likely be non-weightbearing in the short term. Care of patient turned over to oncoming ED physician (Dr. Coker) at end of my shift pending SW evaluation and disposition Departure - Departure Forms: PCP List
[2023-06-12] MEDS ORDERED: fentaNYL 100 MCG/2 ML VIAL IVP STA ×3 (21:45→23:23)
--- NOTE | 2023-06-12 22:38 | XRAY Report ---
PROCEDURE: Knee 3 View RT INDICATIONS: twisting injury, pain/tenderness TECHNIQUE: 3 views of the knee(s) were acquired. COMPARISON: None. FINDINGS: Bones: No fractures or dislocations. Moderate tricompartmental osteoarthritis is seen. No patellar s ubluxation. No suspicious bony lesions. Soft tissues: There is moderate to large joint effusion. Chondrocalcinosis in medial and lateral femo ral tibial compartments are seen. IMPRESSION: 1. No gross acute left knee fracture or dislocation. 2. 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 Moderate to large joint effusion. Consider MRI of knee for evaluation of internal derangement. Reviewed by: Gary Zimmerman MD on 06/12/2023 10:37 PM PST Approved by: Gary Zimmerman MD on 06/12/2023 10:37 PM PST Station ID: [id number]
[2023-06-13] MEDS ORDERED: fentaNYL 100 MCG/2 ML VIAL IVP STA (01:37)
[2023-06-13] MEDS ORDERED: HYDROmorphone 1 MG/ML CARPUJECT IVP STA (04:21)
[2023-06-13] MEDS ORDERED: HYDROcod/ACETAM 5/325 MG TABLET PO STA (08:17)
--- NOTE | 2023-06-13 10:24 | ED Physician Documentation ---
ED Addendum - Addendum Addendum: 06/13/23 10:23 88 y/o female with right knee pain after a twisting injury getting up from the cammode has no obvious fracture on plain film and has significant pain with even small movements. Most of the pain is along the medial joint line. An MRI is obtained and demonstrates the major ligaments to be intact and a non-displaced tibial plateu fracture is present. I consulted our orthopod Dr. Briggs and he recommended we place the patient into a long leg immobilizer with minimal weight bearing. We consulted social work as this injury has left the patient who lives alone unable to care for herself. She has family in the area and would like to go to her daughters house. Physical therapy, nursing and bath aid will be required and we have consulted physical therapy as well. They were able to come to the ED and the patient will require at least one person assist to stand and pivot. The patient is considering temporary placement as both her daughter and son in law work. At shift change care is turned over to the oncoming ED with anticipation of discharge to home with her children caring for her as they were not able to secure a facility for this unhealed knee fracture.She is placed into a hospital bed after being in the ED for 12 hours and we anticipate the family being able secure the necessary equipment by tomorrow and being able to care for her tomorrow. 06/13/23 14:07 06/13/23 17:46
--- NOTE | 2023-06-13 12:53 | MRI Report ---
PROCEDURE: MRI knee without contrast INDICATIONS: Trauma, pain. Stat interpretation requested TECHNIQUE: Noncontrast sagittal PD fast spin echo and T2 fast spin echo with fat saturation, sagittal 3-D gradie nt sequence with fat saturation; coronal T1 spin echo and PD fast spin echo with fat saturation, and axial PD fast spin echo with fat saturation through the knee. COMPARISON: Conventional radiographs 04/12/2023 FINDINGS: Anterior and posterior cruciate ligaments appear intact. Medial and lateral collateral ligaments are also grossly intact Articular cartilage is thinned. Linear increased signal in the posterior horn of the medial meniscus extends to the inferior articula r surface, likely reflecting tear. Globular increased signal in the medial anterior horn as well as t he lateral meniscus to a lesser degree consistent with mucoid degeneration Linear edematous signal in both tibial plateaus reflect medial and lateral tibial plateau fractures e xtending to the tibial articular surface. No displacement of fracture fragments. There is an associat ed large joint effusion present with fluid fluid levels as well as fat globules noted in the supra pa tellar recess. Popliteal cyst noted Additionally, lateral subcutaneous soft tissue edema present. IMPRESSION: 1. Nondisplaced medial and lateral tibial plateau fractures associated with large lipohemarthrosis 2. Probable nondisplaced meniscal fracture through the posterior horn medial meniscus. 3. Major internal ligaments appear intact Reviewed by: Gregory Gandara MD on 06/13/2023 11:52 AM [place] Approved by: Gregory Gandara MD on 06/13/2023 11:52 AM [place] Station ID: [id number]
[2023-06-13] MEDS ORDERED: oxyCODONE 5 MG TABLET PO STA (16:32)
[2023-06-13] MEDS ORDERED: FUROSEMIDE 20 MG TABLET PO STA (18:50)
[2023-06-13] MEDS ORDERED: predniSONE 5 MG TABLET PO STA (18:51)
[2023-06-13] MEDS ORDERED: POTASSIUM CHLORIDE 20 MEQ TABLET PO STA (18:52)
[2023-06-13] MEDS: BACLOFEN 10 MG TABLET PO PRN (19:07)
[2023-06-13] MEDS ORDERED: MAG HYDROX/AL HYDROX/SIMETH 30 ML UDC PO STA (19:29)
--- NOTE | 2023-06-13 22:34 | ED Physician Documentation ---
ED Addendum - Addendum Addendum: 06/13/23 22:34 No changes during my shift, patient signed out to the oncoming emergency department physician.
[2023-06-14] MEDS ORDERED: HYDROcod/ACETAM 5/325 MG TABLET PO STA (06:15)
[2023-06-14] MEDS: LEVOTHYROXINE 125 MCG TABLET PO SCH ×2 (06:17→06:34)
--- NOTE | 2023-06-14 06:18 | ED Physician Documentation ---
ED Addendum - Addendum Addendum: 06/14/23 06:17 The patient had been resting well through the night until little bit ago. She awoke and was having increased pain in her knee and asked for medication. She had received hydrocodone and oxycodone both previously during the ED stay without any problems. She lists allergy to codeine and morphine. We will not give those. I wrote for a dose of hydrocodone/acetaminophen to be given now and I also wrote for scheduled Tylenol 500 mg 4 times a day. Presumably she is going to be picked up and brought to her care facility later today, according to prior notes.
[2023-06-14] MEDS: BACLOFEN 10 MG TABLET PO PRN ×2 (06:34→12:23)
[2023-06-14] MEDS: ACETAMINOPHEN 500 MG TABLET PO SCH ×2 (06:36→12:22)
[2023-06-14] MEDS ORDERED: METOPROLOL SUCCINATE 50 MG TABLET PO SCH (09:00)
[2023-06-14] MEDS ORDERED: allopurinoL 100 MG TABLET PO SCH (09:00)
[2023-06-14 14:07] VITALS: BP 164/77; O2SAT 94
== END 2023-06-14 14:10 | disposition home or self-care (01) ==
LOC: EDUNIT# → ED 21:16
DX: S82.141A Displaced bicondylar fracture of right tibia, initial encounter for closed fracture (principal); W19.XXXA Unspecified fall, initial encounter; Y92.89 Other specified places as the place of occurrence of the external cause; R53.1 Weakness; I10 Essential (primary) hypertension; E03.9 Hypothyroidism, unspecified; Z79.899 Other long term (current) drug therapy
CPT/HCPCS: 73562; 73721; 96374; 96375; 96376; 97163; 99284; A9270; J1170; J7512

== ENCOUNTER 2023-06-14 14:10 | Outpatient (CLI) | payer MEDICARE, BC | END 2023-06-14 14:11 | disposition home or self-care (01) | LOC: EMS 14:10 | PROVIDERS: ATTEND Emergency Medicine | DX: S82.141A Displaced bicondylar fracture of right tibia, initial encounter for closed fracture (principal); W19.XXXA Unspecified fall, initial encounter; Y92.002 Bathroom of unspecified non-institutional (private) residence as the place of occurrence of the external cause | CPT/HCPCS: A0425; A0428 ==

== ENCOUNTER 2023-06-22 18:18 | Outpatient (CLI) | payer MEDICARE, BC | END 2023-06-22 18:19 | disposition home or self-care (01) | LOC: EMS 18:18 | DX: R19.7 Diarrhea, unspecified (principal); R05.9 Cough, unspecified; Z74.01 Bed confinement status | CPT/HCPCS: A0425; A0429 ==

== ENCOUNTER 2023-06-22 18:42 | Emergency (ER) | payer MEDICARE, BC ==
[2023-06-22 19:21] LABS: BASOPHILS # (AUTO) 0.1 10^3/uL (0.0-0.1); BASOPHILS % (AUTO) 0.5 %; EOSINOPHILS # (AUTO) 0.4 10^3/uL (0.0-0.7); EOSINOPHILS % (AUTO) 3.3 %; HGB - HEMOGLOBIN 11.4 g/dL (12.0-16.0); LYMPHOCYTES # (AUTO) 2.7 10^3/uL (1.5-3.5); LYMPHOCYTES % (AUTO) 21.8 %; MEAN CORPUSCULAR HEMOGLOBIN 29.6 pg (27.0-31.0); MEAN CORPUSCULAR HGB CONC 29.2 g/dL (32.0-36.0); MEAN CORPUSCULAR VOLUME 101.3 fL (81.0-99.0); MEAN PLATELET VOLUME 10.1 fL (7.9-10.8); MONOCYTES # (AUTO) 0.7 10^3/uL (0.0-1.0); MONOCYTES % (AUTO) 5.7 %; NEUTROPHILS # (AUTO) 8.3 10^3/uL (1.5-6.6); NEUTROPHILS % (AUTO) 67.4 %; PLT - PLATELET COUNT 386 10^3/uL (130-450); RED BLOOD COUNT 3.85 10^6/uL (4.20-5.40); RED CELL DISTRIBUTION WIDTH 13.2 % (12.0-15.0); WHITE BLOOD COUNT 12.4 x10^3/uL (4.8-10.8)
[2023-06-22 19:35] LABS: ALBUMIN 3.8 g/dL (3.2-5.5)
[2023-06-22 19:45] LABS: ALBUMIN/GLOBULIN RATIO 1.4 (1.0-2.2); BILIRUBIN,TOTAL 0.3 mg/dL (0.2-1.0); CALCIUM 9.6 mg/dL (8.5-10.3); CREATININE 1.2 mg/dL (0.6-1.3); POTASSIUM 4.1 mmol/L (3.5-4.5); TOTAL PROTEIN 6.5 g/dL (6.4-8.9)
--- NOTE | 2023-06-22 20:08 | XRAY Report ---
PROCEDURE: Chest 1 View X-Ray INDICATIONS: sob/cough TECHNIQUE: One view of the chest was acquired. COMPARISON: 10/03/2021 FINDINGS: Surgical changes and devices: None. Lungs and pleura: Minimal appearance of increased pulmonary vascularity. Minimal blunting of the cos tophrenic angles appear Mediastinum: Mediastinal contours appear normal. Heart size is normal. Bones and chest wall: No suspicious bony lesions. Overlying soft tissues appear unremarkable. IMPRESSION: Minimal increased vascularity with questionable trace effusion suggestive of edema. Reviewed by: Dinorah Watson MD on 06/22/2023 8:06 PM PST Approved by: Dinorah Watson MD on 06/22/2023 8:06 PM [facility] Station ID: [id number]
[2023-06-22 20:31] LABS: B. PARAPERTUSSIS- RESP PCR PAN NOT DETECTED; B. PERTUSSIS- RESP PCR PANEL NOT DETECTED; C. PNEUMONIAE- RESP PCR PANEL NOT DETECTED; CORONAVIRUS 229E-RESP PCR NOT DETECTED; CORONAVIRUS HKU1-RESP PCR NOT DETECTED; CORONAVIRUS NL63-RESP PCR NOT DETECTED; CORONAVIRUS OC43-RESP PCR NOT DETECTED; HUMAN METAPNEUMOVIRUS NOT DETECTED; INFLUENZA A- RESP PCR PANEL NOT DETECTED; INFLUENZA B - RESP PCR PANEL NOT DETECTED; M. PNEUMONIAE- RESP PCR PANEL NOT DETECTED; PARAINFLUENZA VIRUS 1 NOT DETECTED; PARAINFLUENZA VIRUS 2 NOT DETECTED; PARAINFLUENZA VIRUS 3 NOT DETECTED; PARAINFLUENZA VIRUS 4 NOT DETECTED; RHINOVIRUS/ENTEROVIRUS NOT DETECTED; RSV- RESP PCR PANEL NOT DETECTED; SARS-CoV-2 -RESP PCR PANEL NOT DETECTED
[2023-06-22] MEDS ORDERED: SULFAMETH/TRIMETH DS 800/160 MG TABLET PO STA (20:46)
[2023-06-22] MEDS ORDERED: DEXAMETHASONE 10 MG/ML VIAL IV STA (21:14)
[2023-06-22] MEDS ORDERED: IPRATROPIUM/ALBUTEROL 3 ML NEB INH STA (21:14)
--- NOTE | 2023-06-22 22:03 | XRAY Report ---
PROCEDURE: Knee 3 View RT INDICATIONS: fracture 10 days ago, no ortho or casting TECHNIQUE: 3 views of the knee(s) were acquired. COMPARISON: Knee x-ray 06/12/2023, MRI knee 06/13/2023 FINDINGS: Bones: Lateral tibial plateau fracture unchanged in appearance. It is noted MRI demonstrate a medial tibial plateau fracture not well appreciated on x-ray as x-ray appearance is similar compared to 05/2023.. No suspicious bony lesions. Tricompartmental arthritic change. Soft tissues: Mild knee joint effusion. No suspicious soft tissue calcifications or masses. IMPRESSION: Stable appearance of medial and lateral tibial plateau fractures. Reviewed by: Dinorah Watson MD on 06/22/2023 10:02 PM PST Approved by: Dinorah Watson MD on 06/22/2023 10:02 PM PST Station ID: [id number]
--- NOTE | 2023-06-22 22:04 | ED Physician Documentation ---
History of Present Illness - Stated complaint Stated Complaint: FEVER, DIARRHEA, BED SORES, TIB FIB FX X 1 WK - Chief complaint Chief Complaint: General - History obtained from History obtained from: Patient - Additonal information Additional information: The patient comes to the emergency department for chief complaint of "my family cannot take care of me at home". The patient was seen here by June 12 and found to have a tibial plateau fracture, and was kept in the emergency department for a couple of days subsequently while social work tried to set up SNF/assisted living. The patient and family ultimately declined for the patient to be sent to the SNF, despite the fact that she had already been accepted and had a bed. They stated they did not feel they could afford it and they wanted to try taking care of the patient at home. The patient states that once home, she never did get out of bed at all and that she has not been in to see the orthopedist. The patient states she has mostly laid in bed, occasionally turning from [id number]. She states she has a small sore on her superior right buttock, as well as an area of redness, swelling, and drainage on her mid to upper back. The patient complains of low-grade fever this evening. She has had a congested cough, but not denies new shortness of breath that is unusual. The patient does have COPD and is oxygen dependent at home at about 1.5 to 2 L. No other complaints at this time. PD PAST MEDICAL HISTORY - Past Medical History Past Medical History: Yes Cardiovascular: Hypertension, Other Respiratory: Asthma, Sleep apnea Neuro: None Endocrine/Autoimmune: HyPOthyroidism, Other GI: GERD, Colon polyps, Other [employer]: None : Incontinence, Renal insuffiency, Kidney stones HEENT: None Psych: None Musculoskeletal: Osteopenia, Gout, Other Derm: Herpes zoster, Other - Past Surgical History Past Surgical History: Yes General: Colonoscopy, EGD /[employer]: Hysterectomy Cardiovascular: Cardiac catheterization HEENT: Cataracts - Present Medications Home Medications: Ambulatory Orders Medication Instructions Recorded Confirmed allopurinoL [Allopurinol] 300 mg PO DAILY 11/30/14 06/14/23 Cholecalciferol (Vitamin D3) 1,000 units PO DAILY 12/17/16 06/14/23 [Vitamin D3] Potassium Chloride 20 meq PO DAILYWM 04/11/21 06/14/23 Furosemide [Lasix] 40 mg PO DAILY@0800 09/10/21 11/12/23 Levothyroxine Sodium 137 mcg PO QDAC 04/12/21 06/14/23 Omeprazole 40 mg PO QDAC 04/12/21 06/14/23 Metoprolol Succinate [Toprol Xl] 50 mg PO DAILY #30 tablet 04/16/21 06/14/23 Magnesium Oxide [Magnesium] 500 mg PO DAILY 04/15/23 06/14/23 Famotidine [Pepcid] 20 mg PO BID 06/14/23 06/14/23 Ondansetron Odt [Zofran] 4 mg TL Q6H PRN #10 tablet 06/14/23 methocarbamoL [Robaxin] 500 mg PO Q6H #20 tablet 06/14/23 oxyCODONE [Roxicodone] 5 mg PO Q4-6H PRN #15 tablet 06/14/23 - Allergies Allergies/Adverse Reactions: Allergies Allergy/AdvReac Type Severity Reaction Status Date / Time codeine Allergy Severe Anaphylaxis Verified 06/22/23 19:09 morphine Allergy Intermediate Nausea Verified 06/22/23 19:09 - Social History Does the pt smoke?: No Smoking Status: Never smoker Does the pt drink ETOH?: No Does the pt have substance abuse?: No - Immunizations Immunizations are current?: Yes - POLST Patient has POLST: No POLST Status: Full Code PD ED PE NORMAL - Vitals Vital signs reviewed: Yes - General General: Alert and oriented X 3, No acute distress, Well developed/nourished - HEENT HEENT: Atraumatic, EOMI, Moist mucous membranes - Neck Neck: Supple, no meningeal sign - Cardiac Cardiac: RRR, No murmur - Respiratory Respiratory: No respiratory distress, Other (Moderate expiratory wheezes throughout bilateral lung kumar. No rales.) - Abdomen Abdomen: Soft, Non tender, Non distended - Derm Derm: Warm and dry, Other (Approximately 8 cm diameter area of erythema with moderate induration. A centrally located perforation with drainage is noted. Mild amount of thick, whitish, purulent appearing drainage is expressible.) - Extremities Extremities: No deformity - Neuro Neuro: Alert and oriented X 3 - Psych Psych: Normal mood, Normal affect Results - Vitals Vitals: Vital Signs - 24 hr 06/22/23 06/22/23 06/22/23 18:59 19:22 21:35 Temperature 37.5 C Heart Rate 87 88 84 Respiratory 20 20 96 H Rate Blood Pressure 160/67 H 166/115 H O2 Saturation 96 98 If not protocol 1.5 2 : Oxygen Flow, liters/minute 06/22/23 06/23/23 06/23/23 22:30 00:09 03:57 Temperature Heart Rate 87 82 81 Respiratory 24 18 18 Rate Blood Pressure 158/60 H 129/58 L 133/62 H O2 Saturation 95 93 94 If not protocol 2 2 2 : Oxygen Flow, liters/minute Oxygen O2 Source [With Activity] Nasal cannula O2 Source Nasal cannula - Labs Labs: Laboratory Tests 06/22/23 06/22/23 06/22/23 19:16 19:16 19:32 WBC 12.4 H RBC 3.85 L Hgb 11.4 L Hct 39.0 MCV 101.3 H MCH 29.6 MCHC 29.2 L RDW 13.2 Plt Count 386 MPV 10.1 Neut # (Auto) 8.3 H Lymph # (Auto) 2.7 [place] # (Auto) 0.7 Eos # (Auto) 0.4 Baso # (Auto) 0.1 Absolute Nucleated RBC 0.00 Nucleated RBC % 0.0 Sodium 143 Potassium 4.1 Chloride 98 L Carbon Dioxide 40 H* Anion Gap 5.0 L BUN 27 H Creatinine 1.2 Estimated GFR (MDRD) 43 L Glucose 101 Calcium 9.6 Total Bilirubin 0.3 AST 27 ALT 24 Alkaline Phosphatase 67 Total Protein 6.5 Albumin 3.8 Globulin 2.7 Albumin/Globulin Ratio 1.4 Lipase 15 Nasal Adenovirus (PCR) NOT DETECTED Nasal B. parapertussis DNA (PCR) NOT DETECTED Nasal Coronavir 229E PCR NOT DETECTED Nasal Coronavir HKU1 PCR NOT DETECTED Nasal Coronavir NL63 PCR NOT DETECTED Nasal Coronavir OC43 PCR NOT DETECTED Nasal Enterovir/Rhinovir PCR NOT DETECTED Nasal Influenza B PCR NOT DETECTED Nasal Influenza A PCR NOT DETECTED Nasal Parainfluen 1 PCR NOT DETECTED Nasal Parainfluen 2 PCR NOT DETECTED Nasal Parainfluen 3 PCR NOT DETECTED Nasal Parainfluen 4 PCR NOT DETECTED Nasal RSV (PCR) NOT DETECTED Nasal B.pertussis DNA PCR NOT DETECTED Nasal C.pneumoniae (PCR) NOT DETECTED Roger Human Metapneumo PCR NOT DETECTED Nasal M.pneumoniae (PCR) NOT DETECTED Nasal SARS-CoV-2 (PCR) NOT DETECTED - Rads (name of study) Chest x-ray Relevant Findings:: Final report received, See rad report (Unremarkable) PD Medical Decision Making - ED course Complexity details: reviewed old records, reviewed results, re-evaluated patient, considered differential, d/w patient ED course: The patient overall is fairly well-appearing. I obtained a chest x-ray since she had had a cough and this was unremarkable. The patient was treated with a DuoNeb and Decadron for her wheezing, as well as IV fluids. She was also started on antibiotics for her cellulitis and draining abscess. She was placed on her normal amount of home O2 and sats were found to be in the low to mid 90s, which is baseline for the patient when she is on her oxygen. Laboratory studies were obtained and largely unremarkable. The patient and family were informed that at this point, the patient is not going to meet admission criteria. The family and the patient were hoping that patient could be admitted so that she co uld have insurance coverage of her SNF stay. However, she is simply does not meet criteria at this time. We will consult social work in the morning To help with placement options. The patient will be signed out to the oncoming emergency physician at change of shift, pending social work evaluation and final disposition. Departure - Departure Forms: PCP List
[2023-06-22] MEDS: ZINC OXIDE 20% OINT 30 GM TUBE TOP PRN (23:07)
[2023-06-23] MEDS: PANTOPRAZOLE 40 MG TABLET PO SCH (06:42)
[2023-06-23] MEDS: LEVOTHYROXINE 112 MCG TABLET PO SCH (06:42)
[2023-06-23] MEDS: LEVOTHYROXINE 25 MCG TABLET PO SCH (06:42)
[2023-06-23] MEDS ORDERED: LEVOTHYROXINE 125 MCG TABLET PO SCH (07:00)
[2023-06-23] MEDS ORDERED: LANSOPRAZOLE 15 MG CAPSULE PO SCH (07:00)
[2023-06-23] MEDS: IPRATROPIUM/ALBUTEROL 3 ML NEB INH SCH ×3 (08:19→23:40)
[2023-06-23] MEDS: MAGNESIUM OXIDE 400 MG TABLET PO SCH (08:21)
--- NOTE | 2023-06-23 08:42 | XRAY Report ---
PROCEDURE: Ankle 3 View RT INDICATIONS: ankle pain post fall 10 days ago TECHNIQUE: 3 views of the ankle were acquired. COMPARISON: None. FINDINGS: Bones: No fractures or dislocations. Ankle mortise is normally aligned. No suspicious bony lesions . Soft tissues: No tibiotalar joint effusion. Achilles tendon appears normal. IMPRESSION: No acute bony abnormality. Reviewed by: Kendall Kitchen on 06/23/2023 8:41 AM [facility] Approved by: Kendall Kitchen on 06/23/2023 8:41 AM [facility] Station ID: [id number]
[2023-06-23] MEDS ORDERED: SULFAMETH/TRIMETH DS 800/160 MG TABLET PO SCH (09:00)
[2023-06-23] MEDS: FUROSEMIDE 20 MG TABLET PO SCH (09:50)
[2023-06-23] MEDS: POTASSIUM CHLORIDE 20 MEQ TABLET PO SCH (09:51)
[2023-06-23] MEDS: METOPROLOL SUCCINATE 50 MG TABLET PO SCH (09:51)
[2023-06-23] MEDS: ACETAMINOPHEN 325 MG TABLET PO SCH ×5 (09:51→21:35)
[2023-06-23 10:57] LABS: BILIRUBIN,URINE NEGATIVE (NEGATIVE); GLUCOSE, URINE (UA) NEGATIVE (NEGATIVE); KETONES,URINE (UA) NEGATIVE (NEGATIVE); LEUKOCYTE ESTERASE, URINE NEGATIVE (NEGATIVE); NITRITE,URINE NEGATIVE (NEGATIVE); OCCULT BLOOD,URINE NEGATIVE (NEGATIVE); PROTEIN,URINE NEGATIVE (NEGATIVE); UROBILINOGEN,URINE 0.2 (NORMAL) E.U./dL (NORMAL)
[2023-06-23 10:58] LABS: CLARITY,URINE CLEAR (CLEAR)
--- NOTE | 2023-06-23 11:39 | ED Physician Documentation ---
ED Addendum - Addendum Addendum: 06/23/23 11:36 The patient is awake and conversant. She has unlabored breathing. She states she is on home oxygen at 2 L nasal cannula or 1-1/2 L nasal cannula. She did have adequate oxygenation with that until this morning when it was a approximately 88-90. She did have some slight wheezing. Will institute her normal nebulizers 3-4 times daily. She has been sedentary in bed with her knee injury for the last 10 days we can do some incentive spirometry as well. The patient says she has had diarrhea over the last week several times daily which is watery. We can do a stool sample to evaluate for bacterial causes such as C. difficile. Once a stool cultures contained or stool sample is obtained, we can initiate some Imodium. The patient is 10 days out from a plateau fracture of the knee which is nondisplaced. She is in a straight leg immobilizer and she states that it is uncomfortable some to be in that position all the time. At 10 days out I think we can initiate a hinged knee brace with gentle range of motion up to 20 or 30 degrees. She is not ordered any regular pain medicine. I ordered Tylenol 4 times daily regularly. Will have social work as well as OT and PT evaluate again. There had been consideration for placement at a long term 10 days ago when she was first here but they could not afford it. They were trying home therapies with poor results and not able to get the patient up and around. She has some pressure sores subsequently. We will reassess the idea of placement but of course pending the ability of the family. Home health has been ordered but apparently had not come as yet. We can look into that better as well. At this point there does not appear to be any admission criteria so looking at other placement options. Social work is evaluating the patient and the family at this time.
[2023-06-23] MEDS ORDERED: SODIUM CHLORIDE 0.9% 1,000 ML IV STA ×2 (14:14→16:08)
[2023-06-23 14:48] LABS: BASOPHILS % (AUTO) 0.2 %; HCT - HEMATOCRIT 37.5 % (37.0-47.0); HGB - HEMOGLOBIN 11.4 g/dL (12.0-16.0); LYMPHOCYTES # (AUTO) 1.4 10^3/uL (1.5-3.5); LYMPHOCYTES % (AUTO) 12.1 %; MEAN CORPUSCULAR HEMOGLOBIN 29.9 pg (27.0-31.0); MEAN CORPUSCULAR HGB CONC 30.4 g/dL (32.0-36.0); MEAN CORPUSCULAR VOLUME 98.4 fL (81.0-99.0); MEAN PLATELET VOLUME 9.4 fL (7.9-10.8); MONOCYTES # (AUTO) 0.3 10^3/uL (0.0-1.0); MONOCYTES % (AUTO) 2.9 %; NEUTROPHILS # (AUTO) 9.6 10^3/uL (1.5-6.6); NEUTROPHILS % (AUTO) 83.1 %; PLT - PLATELET COUNT 434 10^3/uL (130-450); RED BLOOD COUNT 3.81 10^6/uL (4.20-5.40); RED CELL DISTRIBUTION WIDTH 13.4 % (12.0-15.0); WHITE BLOOD COUNT 11.5 x10^3/uL (4.8-10.8)
[2023-06-23 15:00] LABS: CALCIUM 9.6 mg/dL (8.5-10.3); CREATININE 1.4 mg/dL (0.6-1.3); POTASSIUM 4.2 mmol/L (3.5-4.5)
[2023-06-23] MEDS ORDERED: CLINDAMYCIN 600 MG/50 ML 50 ML IV ONE (16:17)
--- NOTE | 2023-06-23 16:20 | ED Physician Documentation ---
ED Addendum - Addendum Addendum: 06/23/23 16:[address] Spencer, the hospitalist, who felt the patient did not really meet admission criteria at this point. Suggested IV fluids and repeating the labs in a few hours. More likely under hydration. There was the suggestion of withholding the Lasix if the patient does seem under hydrated and this is reasonable. We can hold it for a day or so. Social work states patient is being evaluated by [facility]. She had been accepted 10 days ago by them so presumably so. I did obtain a culture of her back wound for better identification. She had been started on Bactrim antibiotic orally. The patient's creatinine is slightly up at 1.4 compared to 1.2 earlier so I consider changing from the Bactrim to either Doxy or clinda.
[2023-06-23 16:47] LABS: CALCIUM 9.6 mg/dL (8.5-10.3); CREATININE 1.4 mg/dL (0.6-1.3); POTASSIUM 4.2 mmol/L (3.5-4.5)
[2023-06-23] MEDS: DOXYCYCLINE 100 MG TABLET PO SCH (21:35)
[2023-06-24] MEDS: IPRATROPIUM/ALBUTEROL 3 ML NEB INH SCH ×4 (00:22→18:11)
[2023-06-24] MEDS ORDERED: oxyCODONE 5 MG TABLET PO PRN (02:46)
[2023-06-24] MEDS ORDERED: ONDANSETRON 4 MG/2 ML VIAL IVP STA (06:25)
[2023-06-24] MEDS: PANTOPRAZOLE 40 MG TABLET PO SCH (06:56)
[2023-06-24] MEDS: LEVOTHYROXINE 25 MCG TABLET PO SCH (06:56)
[2023-06-24] MEDS: MAGNESIUM OXIDE 400 MG TABLET PO SCH (09:31)
[2023-06-24] MEDS: LEVOTHYROXINE 112 MCG TABLET PO SCH (09:31)
[2023-06-24] MEDS: ACETAMINOPHEN 325 MG TABLET PO SCH ×4 (09:32→21:08)
[2023-06-24] MEDS: METOPROLOL SUCCINATE 50 MG TABLET PO SCH (09:33)
[2023-06-24] MEDS: POTASSIUM CHLORIDE 20 MEQ TABLET PO SCH (09:33)
[2023-06-24] MEDS: DOXYCYCLINE 100 MG TABLET PO SCH ×2 (09:34→21:08)
[2023-06-24] MEDS: FUROSEMIDE 20 MG TABLET PO SCH (09:34)
--- NOTE | 2023-06-24 15:51 | ED Physician Documentation ---
ED Addendum - Addendum Addendum: 06/24/23 15:49 The patient was conversant when I visited with her. No particular complaints. She continues on her usual medications. Social work met with the patient again today and was looking at [facility]. They were not able to take the patient in consideration not until Thursday likely. The director social states the family would likely be able to come up with payment for the [facility] at that point as well. At this point it looks therefore the patient will be still here for likely 4 to 5 days more at least. Continue current treatments.
[2023-06-25] MEDS: IPRATROPIUM/ALBUTEROL 3 ML NEB INH SCH ×3 (06:20→22:42)
[2023-06-25] MEDS: LEVOTHYROXINE 25 MCG TABLET PO SCH (06:44)
[2023-06-25] MEDS: PANTOPRAZOLE 40 MG TABLET PO SCH (06:44)
[2023-06-25] MEDS: LEVOTHYROXINE 112 MCG TABLET PO SCH (06:47)
[2023-06-25] MEDS: DOXYCYCLINE 100 MG TABLET PO SCH ×2 (08:24→21:17)
[2023-06-25] MEDS: MAGNESIUM OXIDE 400 MG TABLET PO SCH ×2 (08:25→08:26)
[2023-06-25] MEDS: FUROSEMIDE 20 MG TABLET PO SCH (08:25)
[2023-06-25] MEDS: METOPROLOL SUCCINATE 50 MG TABLET PO SCH (08:25)
[2023-06-25] MEDS: ACETAMINOPHEN 325 MG TABLET PO SCH ×4 (08:26→21:17)
[2023-06-25] MEDS: POTASSIUM CHLORIDE 20 MEQ TABLET PO SCH (08:26)
--- NOTE | 2023-06-25 17:55 | ED Physician Documentation ---
ED Addendum - Addendum Addendum: 06/25/23 17:55 She was without voiced complaints today. C. difficile was negative. Worked with PT today. No social work today.
[2023-06-25] MEDS: ZINC OXIDE 20% OINT 30 GM TUBE TOP PRN (21:27)
[2023-06-26] MEDS: IPRATROPIUM/ALBUTEROL 3 ML NEB INH SCH ×3 (06:02→22:18)
[2023-06-26] MEDS: LEVOTHYROXINE 25 MCG TABLET PO SCH (06:26)
[2023-06-26] MEDS: PANTOPRAZOLE 40 MG TABLET PO SCH (06:27)
[2023-06-26] MEDS: LEVOTHYROXINE 112 MCG TABLET PO SCH (06:29)
[2023-06-26] MEDS: METOPROLOL SUCCINATE 50 MG TABLET PO SCH (10:54)
[2023-06-26] MEDS: ACETAMINOPHEN 325 MG TABLET PO SCH ×4 (10:55→21:03)
[2023-06-26] MEDS: DOXYCYCLINE 100 MG TABLET PO SCH ×2 (10:55→21:03)
[2023-06-26] MEDS: POTASSIUM CHLORIDE 20 MEQ TABLET PO SCH (10:55)
[2023-06-26] MEDS: FUROSEMIDE 20 MG TABLET PO SCH (10:55)
--- NOTE | 2023-06-26 15:25 | ED Physician Documentation ---
ED Addendum - Addendum Addendum: 06/26/23 15:23 Nursing reports the patient was up with assistance earlier in the day. The patient tells me at felt good to actually get up out of bed for a brief time. We do have a hospital bed in place. Consideration might be a recliner as well. The bed space is tight on the floor so apparently utilization review is not wanting her to be a transfer to there but to remain in the ER for now. We will reassess on Thursday. Previously social work had said [facility] may be able to acc ept her or in review but is still an issue of the family finding funding. The patient states she was comfortable at this point. Her back was not hurting. Continue current treatment plan.
[2023-06-26] MEDS ORDERED: BENZONATATE 100 MG CAPSULE PO PRN (17:58)
[2023-06-27] MEDS ORDERED: diphenhydrAMINE 25 MG CAPSULE PO STA (00:37)
[2023-06-27] MEDS ORDERED: ACETAMINOPHEN 325 MG TABLET PO STA (00:37)
[2023-06-27] MEDS ORDERED: ONDANSETRON 4 MG/2 ML VIAL IVP STA (03:58)
[2023-06-27 04:07] LABS: ADENOVIRUS F 40/41 Not Detected (Not Detected); ASTROVIRUS Not Detected (Not Detected); C DIFFICILE TOXIN A/B Not Detected (Not Detected); CAMPYLOBACTER Not Detected (Not Detected); CRYPTOSPORIDIUM Not Detected (Not Detected); CYCLOSPORA CAYETANENSIS Not Detected (Not Detected); ENTAMOEBA HISTOLYTICA Not Detected (Not Detected); ENTEROAGGREGATIVE E COLI Not Detected (Not Detected); ENTEROPATHOGENIC E COLI Not Detected (Not Detected); ENTEROTOXIGENIC E COLI Not Detected (Not Detected); GIARDIA LAMBLIA Not Detected (Not Detected); NOROVIRUS GI/GII Not Detected (Not Detected); PLESIOMONAS SHIGELLOIDES Not Detected (Not Detected); ROTAVIRUS A Not Detected (Not Detected); SALMONELLA Not Detected (Not Detected); SAPOVIRUS Not Detected (Not Detected); SHIGA-TOXIN-PRODUCING E COLI Not Detected (Not Detected); SHIGELLA/ENTEROINVASIVE E COLI Not Detected (Not Detected); VIBRIO Not Detected (Not Detected); VIBRIO CHOLERAE Not Detected (Not Detected); YERSINIA ENTEROCOLITICA Not Detected (Not Detected)
[2023-06-27] MEDS: fentaNYL 100 MCG/2 ML VIAL IVP PRN ×3 (04:17→09:24)
[2023-06-27] MEDS: LEVOTHYROXINE 25 MCG TABLET PO SCH (06:22)
[2023-06-27] MEDS: PANTOPRAZOLE 40 MG TABLET PO SCH (06:22)
[2023-06-27] MEDS: LEVOTHYROXINE 112 MCG TABLET PO SCH (06:23)
[2023-06-27] MEDS: IPRATROPIUM/ALBUTEROL 3 ML NEB INH SCH ×3 (07:31→22:01)
[2023-06-27] MEDS: FUROSEMIDE 20 MG TABLET PO SCH (09:25)
[2023-06-27] MEDS: MAGNESIUM OXIDE 400 MG TABLET PO SCH (09:25)
[2023-06-27] MEDS: ACETAMINOPHEN 325 MG TABLET PO SCH ×4 (09:27→21:00)
[2023-06-27] MEDS: DOXYCYCLINE 100 MG TABLET PO SCH ×2 (09:28→21:00)
[2023-06-27] MEDS: POTASSIUM CHLORIDE 20 MEQ TABLET PO SCH (09:29)
[2023-06-27] MEDS: METOPROLOL SUCCINATE 50 MG TABLET PO SCH (09:29)
[2023-06-27] MEDS ORDERED: SODIUM CHLORIDE 0.9% 1,000 ML IV STA (09:38)
--- NOTE | 2023-06-27 09:42 | ED Physician Documentation ---
ED Addendum - Addendum Addendum: 06/27/23 09:38 88-year-old female presenting to the emergency department with a tibial plateau fracture and inability to care for herself at home after she developed diarrhea. Her diarrhea has now cleared up she is undergoing occupational and physical therapy and she is having more pain in her knee. She has been managed with intravenous fentanyl at a 25 mcg dose and this seems inadequate. The patient had a rough night last night mostly with pain being up and uncomfortable. This this morning I have reevaluated the patient I found her to be a bit dry on interrogation of the inferior vena cava with POCUS and she is administered a liter of saline. I measured her IVC at 11.9 mm with complete collapse. This represents a deficit of a little more than a liter. We will provide her next dose of pain medication as a dose of hydromorphone. blood work from this morning is pending. We did get some concern from the nurses caring for the patient she had a dramatic decrease in her status from the last several days.For this reason we checked the patient's laboratories and these were all improved from her prior. When the patient did receive a dose of hydromorphone she was able to sleep became much more comfortable and felt that she was improved. I suspect the reason for the majority of concern today had to do with an adequate pain relief. We have switched the patient to IV Dilaudid for pain control and will switch to oral pain control prior to her discharge to a nursing facility. She indicates to me that she has plans to pay for this by selling her life insurance policy which she has done and she is waiting for the money to fund. 06/27/23 17:07 06/27/23 18:28
[2023-06-27 09:52] LABS: BASOPHILS # (AUTO) 0.1 10^3/uL (0.0-0.1); BASOPHILS % (AUTO) 0.6 %; EOSINOPHILS # (AUTO) 0.5 10^3/uL (0.0-0.7); EOSINOPHILS % (AUTO) 4.4 %; HCT - HEMATOCRIT 38.3 % (37.0-47.0); HGB - HEMOGLOBIN 11.3 g/dL (12.0-16.0); LYMPHOCYTES # (AUTO) 2.9 10^3/uL (1.5-3.5); LYMPHOCYTES % (AUTO) 27.8 %; MEAN CORPUSCULAR HEMOGLOBIN 29.7 pg (27.0-31.0); MEAN CORPUSCULAR HGB CONC 29.5 g/dL (32.0-36.0); MEAN CORPUSCULAR VOLUME 100.8 fL (81.0-99.0); MEAN PLATELET VOLUME 9.7 fL (7.9-10.8); MONOCYTES # (AUTO) 0.7 10^3/uL (0.0-1.0); MONOCYTES % (AUTO) 6.5 %; NEUTROPHILS # (AUTO) 6.3 10^3/uL (1.5-6.6); NEUTROPHILS % (AUTO) 59.8 %; PLT - PLATELET COUNT 388 10^3/uL (130-450); RED CELL DISTRIBUTION WIDTH 13.9 % (12.0-15.0); WHITE BLOOD COUNT 10.5 x10^3/uL (4.8-10.8)
[2023-06-27 10:45] LABS: ALBUMIN 3.6 g/dL (3.2-5.5)
[2023-06-27 10:50] LABS: ALBUMIN/GLOBULIN RATIO 1.4 (1.0-2.2); ALKALINE PHOSPHATASE 72 IU/L (42-121); ALT ALANINE AMINOTRANSFERASE 28 IU/L (10-60); AST ASPARTATE AMINOTRANSFERASE 21 IU/L (10-42); BILIRUBIN,TOTAL 0.4 mg/dL (0.2-1.0); BUN - BLOOD UREA NITROGEN 28 mg/dL (6-20); CALCIUM 9.4 mg/dL (8.5-10.3); CARBON DIOXIDE - CO2 39 mmol/L (21-32); CHLORIDE 98 mmol/L (101-111); CREATININE 1.1 mg/dL (0.6-1.3); GFR - MDRD 47 (>89); GLUCOSE 108 mg/dL (74-104); LIPASE < 10 U/L (11-82); POTASSIUM 4.1 mmol/L (3.5-4.5); SODIUM 141 mmol/L (135-145); TOTAL PROTEIN 6.1 g/dL (6.4-8.9)
[2023-06-27] MEDS ORDERED: HYDROmorphone 1 MG/ML CARPUJECT IVP STA (12:53)
--- NOTE | 2023-06-27 13:25 | XRAY Report ---
PROCEDURE: Chest 1 View X-Ray INDICATIONS: soa TECHNIQUE: One view of the chest was acquired. COMPARISON: None. FINDINGS: Surgical changes and devices: None. Lungs and pleura: No pleural effusions or pneumothorax. Mild pulmonary vascular congestion and mild pulmonary edema is seen. No definite focal infiltrate. Mediastinum: Mediastinal contours appear normal. Heart size is enlarged. Bones and chest wall: No suspicious bony lesions. Overlying soft tissues appear unremarkable. IMPRESSION: Cardiomegaly and mild congestion. No definite focal infiltrate. No pneumothorax. Reviewed by: Gray Boone MD on 06/27/2023 1:23 PM [facility] Approved by: Gary Boone MD on 06/27/2023 1:23 PM [facility] Station ID: [id number]
[2023-06-27 14:26] LABS: BILIRUBIN,URINE NEGATIVE (NEGATIVE); GLUCOSE, URINE (UA) NEGATIVE (NEGATIVE); KETONES,URINE (UA) NEGATIVE (NEGATIVE); LEUKOCYTE ESTERASE, URINE NEGATIVE (NEGATIVE); NITRITE,URINE NEGATIVE (NEGATIVE); OCCULT BLOOD,URINE NEGATIVE (NEGATIVE); PROTEIN,URINE NEGATIVE (NEGATIVE); UROBILINOGEN,URINE 0.2 (NORMAL) E.U./dL (NORMAL)
[2023-06-27 14:29] LABS: CLARITY,URINE CLEAR (CLEAR)
--- NOTE | 2023-06-27 22:01 | ED Physician Documentation ---
ED Addendum - Addendum Addendum: 06/27/23 22:00 No changes during my shift, patient signed out to the oncoming emergency department physician.
[2023-06-28] MEDS: LEVOTHYROXINE 25 MCG TABLET PO SCH (05:30)
[2023-06-28] MEDS: PANTOPRAZOLE 40 MG TABLET PO SCH (05:30)
[2023-06-28] MEDS: LEVOTHYROXINE 112 MCG TABLET PO SCH (05:32)
[2023-06-28] MEDS: ZINC OXIDE 20% OINT 30 GM TUBE TOP PRN (05:43)
[2023-06-28] MEDS: IPRATROPIUM/ALBUTEROL 3 ML NEB INH SCH ×2 (07:12→13:07)
[2023-06-28] MEDS: ACETAMINOPHEN 325 MG TABLET PO SCH ×2 (07:56→13:39)
[2023-06-28] MEDS: METOPROLOL SUCCINATE 50 MG TABLET PO SCH (07:56)
[2023-06-28] MEDS: MAGNESIUM OXIDE 400 MG TABLET PO SCH (07:56)
[2023-06-28] MEDS: DOXYCYCLINE 100 MG TABLET PO SCH (07:57)
[2023-06-28] MEDS: FUROSEMIDE 20 MG TABLET PO SCH (07:57)
[2023-06-28] MEDS: POTASSIUM CHLORIDE 20 MEQ TABLET PO SCH (07:58)
--- NOTE | 2023-06-28 11:53 | ED Physician Documentation ---
ED Addendum - Addendum Addendum: Patient care received in signout. She is boarding awaiting rehab placement due to a tibial plateau fracture. She has not met criteria for admission. This morning she is resting comfortably and states that her pain has improved and that she had a better night sleep last night than the night before.She denies any needs at this time. Patient discussed during morning meeting with hospitalist service. They will look into whether she qualifies for the extended-stay program. Patient has been accepted now into the extended-stay program and I have discussed the case with admitting hospitalist Dr. Diaz who will assume care of patient. Departure - Departure Disposition: 30 Still a Pt Return for OP Sv Clinical Impression: Fracture of right tibial plateau, Cellulitis of back Condition: Stable Forms: PCP List Discharge Date/Time: 06/28/23 15:41
[2023-06-28] MEDS ORDERED: ONDANSETRON 4 MG/2 ML VIAL IVP PRN (14:31)
[2023-06-28] MEDS ORDERED: ACETAMINOPHEN 500 MG TABLET PO PRN (14:31)
[2023-06-28] MEDS ORDERED: PANTOPRAZOLE 40 MG TABLET PO SCH (15:00)
[2023-06-28 15:37] VITALS: BP 153/83; O2SAT 97
== END 2023-06-28 15:41 | disposition still patient (30) ==
LOC: EDUNIT# → ED 18:42
DX: S82.141A Displaced bicondylar fracture of right tibia, initial encounter for closed fracture (principal); X58.XXXA Exposure to other specified factors, initial encounter; L03.312 Cellulitis of back [any part except buttock and flank]; I10 Essential (primary) hypertension; E03.9 Hypothyroidism, unspecified; J44.9 Chronic obstructive pulmonary disease, unspecified; Z11.52 Encounter for screening for COVID-19; Z99.81 Dependence on supplemental oxygen; Z79.899 Other long term (current) drug therapy
CPT/HCPCS: 36415; 71045; 73562; 73610; 80048; 80053; 81003; 83605; 83690; 85025; 87040; 87070; 87205; 87493; 87507; 87633; 94640; 94664; 96361; 96365; 96375; 96376; 97162; 97166; 97530; 99284; 99285; A9270; J1170; 81001; 87086

== ENCOUNTER 2023-07-07 14:02 | Outpatient (CLI) | payer MEDICARE, BC | END 2023-07-07 14:03 | disposition home or self-care (01) | LOC: EMS 14:02 | PROVIDERS: ATTEND Emergency Medicine | DX: S82.201A Unspecified fracture of shaft of right tibia, initial encounter for closed fracture (principal); S82.401A Unspecified fracture of shaft of right fibula, initial encounter for closed fracture; J44.9 Chronic obstructive pulmonary disease, unspecified; E66.01 Morbid (severe) obesity due to excess calories | CPT/HCPCS: A0425; A0428 ==

== ENCOUNTER 2023-07-14 08:00 | Outpatient (CLI) | payer MEDICARE, BC ==
--- NOTE | 2023-07-14 19:20 | XRAY Report ---
PROCEDURE: Knee 4 View RT INDICATIONS: RIGHT KNEE PAIN TECHNIQUE: 5 views of the knee(s) were acquired. COMPARISON: Right knee radiograph on June 22, 2023. MRI knee on June 13, 2023. FINDINGS: Bones: Slight interval osseous sclerosis of medial and lateral tibial plateau fractures, better seen on prior MRI dated June 13, 2023. Stable tricompartmental degenerative changes. Medial and later al compartment chondrocalcinosis. No suspicious bony lesions. Diffuse osseous demineralization. Soft tissues: Small knee joint effusion. No suspicious soft tissue calcifications or masses. IMPRESSION: 1.Slight interval osseous healing of medial and lateral tibial plateau fractures, better seen on prio r MRI dated June 13, 2023. Stable alignment. 2.Medial and lateral compartment chondrocalcinosis. Reviewed by: Imelda Martinez MD on 07/14/2023 7:18 PM PST Approved by: Imelda Martinez MD on 07/14/2023 7:18 PM PST Station ID: [id number]
== END 2023-07-14 23:59 | disposition home or self-care (01) ==
LOC: DI.WOS 08:00
PROVIDERS: ATTEND Orthopaedic Surgery
DX: S82.141D Displaced bicondylar fracture of right tibia, subsequent encounter for closed fracture with routine healing (principal); M94.261 Chondromalacia, right knee

== ENCOUNTER 2023-09-07 08:00 | Outpatient (CLI) | payer MEDICARE, BC ==
--- NOTE | 2023-09-07 17:26 | XRAY Report ---
PROCEDURE: Knee 4 View RT INDICATIONS: RIGHT TIBIA FRACTURE TECHNIQUE: 4 views of the knee(s) were acquired. COMPARISON: 07/14/2023, 06/27/2023 and 06/22/2023. FINDINGS: Bones: There is interval healed or nearly healed medial and lateral tibial plateau fractures. No new fracture or dislocation. Moderate tricompartmental osteoarthritis is seen most notably in medial fem oral tibial compartment. No suspicious bony lesions. Soft tissues: Moderate knee joint effusion. Chondrocalcinosis in medial and lateral femoral tibial c ompartment is seen. IMPRESSION: Interval healing or nearly healed medial and lateral tibial plateau fractures with persistent moderat e knee joint effusion. No new fracture or dislocation. Moderate tricompartmental osteoarthritis and c hondrocalcinosis as above. Reviewed by: Gary Boone MD on 09/07/2023 5:25 PM PST Approved by: Gary Boone MD on 09/07/2023 5:25 PM PST Station ID: [id number]
== END 2023-09-07 23:59 | disposition home or self-care (01) ==
LOC: DI.WOS 08:00
PROVIDERS: ATTEND Orthopaedic Surgery
DX: S82.141D Displaced bicondylar fracture of right tibia, subsequent encounter for closed fracture with routine healing (principal); M25.461 Effusion, right knee; M17.11 Unilateral primary osteoarthritis, right knee; M11.261 Other chondrocalcinosis, right knee

== ENCOUNTER 2023-10-29 07:00 | Outpatient (CLI) | payer MEDICARE, BC | END 2023-10-29 23:59 | disposition home or self-care (01) | LOC: LAB.S 07:00 | PROVIDERS: ATTEND Physician Assistant Medical | DX: L72.3 Sebaceous cyst (principal) | CPT/HCPCS: 87070; 87205 ==